=== PATIENT | male | born 1940 | race Caucasian/White ===

== ENCOUNTER 2020-03-29 12:52 | Outpatient (CLI) | payer MEDICARE, OTHER, SELFPAY ==
--- NOTE | 2020-03-29 11:30 | DI.RAD_ITS ---
EXAM: XR ANKLE LT COMPLETE CLINICAL HISTORY: Left lateral ankle pain, M25.572 TECHNIQUE: COMPARISON: No exams were available for comparison FINDINGS: Three views were obtained. There are prominent osteophytes calcaneal and plantar fascia attachments on the calcaneus with additional apparent Meghann tendinous calcification seen at each of these sites. There is arterial calcification of the ankle. The ankle mortise is well maintained. There are moder ate marginal osteophytes the tibial talar joint and talofibular joint. There are degenerative change s of the joints of the midfoot as well. There is an ossicle projected adjacent to the base 5th metatarsal, this may represent an unfused apop hysis, possibility fracture, acute or remote is not excluded, clinical correlation requested regardin g any recent injury at this site. IMPRESSION: Degenerative changes as described. Abnormal appearance of the base of the 5th metatarsal, variant ap ophysis versus fracture. Please correlate clinically.
== END 2020-03-29 13:12 ==
PROVIDERS: PCP Nurse Practitioner; Visit Provider Nurse Practitioner Family
DX: M25.572 Pain in left ankle and joints of left foot (principal); M19.072 Primary osteoarthritis, left ankle and foot; M25.772 Osteophyte, left ankle
CPT/HCPCS: 73610

== ENCOUNTER 2023-06-01 10:46 | Outpatient (CLI) | payer MEDICARE, SELFPAY ==
[2023-06-01 12:13] LABS: HGB 14.7 g/dL (13.5-17.5); MCH 32.5 pg (27.0-33.0); MCHC 34.2 % (32.0-36.0); MCV 95 fL (80-95); MPV 9.5 fL (8.0-11.0); Platelet Count 201 10^3/uL (130-400); RBC 4.53 10^6/uL (4.36-5.78); RDW 11.9 % (11.8-14.1); RDW-SD 41.9 fL; WBC 10.73 10^3/uL (4.4-10.8)
[2023-06-01 12:31] LABS: Anion Gap 8.8 mmol/L (3-11); BUN 23 mg/dL (7-18); CO2 28.2 mmol/L (21.0-32.0); Calcium 9.5 mg/dL (8.5-10.1); Chloride 104 mmol/L (98-107); Estimated GFR 76.08 (mL/min/1.73m2); Glucose 106 mg/dL (74-106); Potassium 3.7 mmol/L (3.5-5.1); Sodium 141 mmol/L (136-145); Uric Acid 8.6 mg/dL (3.5-7.2)
== END 2023-06-01 10:47 | disposition home or self-care (01) ==
LOC: LOS 10:46
PROVIDERS: PCP Nurse Practitioner Family; Referring Provider Nurse Practitioner Family; Visit Provider Nurse Practitioner Family
DX: C61 Malignant neoplasm of prostate; I10 Essential (primary) hypertension; I25.10 Atherosclerotic heart disease of native coronary artery without angina pectoris; L40.50 Arthropathic psoriasis, unspecified; M10.9 Gout, unspecified
CPT/HCPCS: 36415; 80048; 85027; 84550

== ENCOUNTER → 2024-02-19 15:21 | Outpatient (CLI) | payer MEDICARE, SELFPAY ==
--- NOTE | 2024-02-19 16:05 | DI.RAD_ITS ---
Exam(s) XR WRIST RT COMPLETE EXAM: XR WRIST RT COMPLETE CLINICAL HISTORY: right wrist pain M25.531 L40.50. TECHNIQUE: 2D digital imaging was performed of the right wrist. Three views were obtained. PA, lat eral and oblique views were obtained. COMPARISON: No exams were available for comparison FINDINGS: Extensive degenerative changes are seen in the right wrist characterized by joint space narrowing and osteophytes. No acute fracture or dislocation is seen. No suspicious soft tissue calcifications ar e seen. There is chondrocalcinosis present. IMPRESSION: Extensive arthrosis of the right wrist. No acute fracture or dislocation. DATA REPOSITORY: RADIATION DOSE DELIVERED:
--- NOTE | 2024-02-19 16:24 | DI.VRAD_ITS ---
PROCEDURE INFORMATION: Exam: XR Right Wrist Exam date and time: 02/19/2024 3:59 PM Age: 83 years old Clinical indication: Pain; Wrist; Right TECHNIQUE: Imaging protocol: Radiologic exam of the right wrist. Views: 3 or more views. COMPARISON: No relevant prior studies available. FINDINGS: Bones/joints: Moderate radiocarpal joint space narrowing. There subchondral cystic changes and eburnation. There is degenerative spurring along the radial aspect of the ulna at its articulation with the radius. Periarticular calcifications along the radial aspect of the scaphoid bone. Pisiform also has a irregularity at its articulation with the triquetrum and hamate. The carpometacarpal areas are preserved. Soft tissues: Moderate edema. IMPRESSION: Moderate radiocarpal joint arthrosis. Dictated and Authenticated by: Jamie Gutierrez MD. Ordering:JUSTIN Walker MD
== END ==
PROVIDERS: PCP Nurse Practitioner Family; Visit Provider Nurse Practitioner Family
DX: M25.531 Pain in right wrist (principal)
CPT/HCPCS: 73110

== ENCOUNTER 2024-04-06 12:21 | Outpatient (CLI) | payer MEDICARE, OTHER, SELFPAY ==
[2024-04-06 11:04] LABS: Abs Immature Grans 0.03 10^3/uL (0.0-0.06); Absolute Basophil Count 0.11 10^3/uL (0.0-0.2); Absolute Eosinophil Count 0.73 10^3/uL (0.0-0.7); Absolute Lymphocyte Count 3.02 10^3/uL (1.2-3.4); Absolute Monocyte Count 0.81 10^3/uL (0.1-0.8); Absolute Neutrophil Count 5.13 10^3/uL (1.2-6.7); Basophils % 1.1 %; Eosinophils % 7.4 %; HCT 43.4 % (40.0-50.0); HGB 14.6 g/dL (13.5-17.5); Immature Grans % 0.3 %; Lymphocytes % 30.7 %; MCH 32.2 pg (27.0-33.0); MCHC 33.6 % (32.0-36.0); MCV 96 fL (80-95); MPV 9.8 fL (8.0-11.0); Monocytes % 8.2 %; Neutrophils % 52.3 %; Platelet Count 204 10^3/uL (130-400); RBC 4.53 10^6/uL (4.36-5.78); RDW 11.8 % (11.8-14.1); RDW-SD 41.1 fL; WBC 9.83 10^3/uL (4.4-10.8)
[2024-04-06 12:01] LABS: ALT 24 U/L (16-63); AST 16 U/L (15-37); Albumin 3.9 g/dL (3.4-5.0); Alkaline Phosphatase 65 U/L (46-116); Anion Gap 8.9 mmol/L (3-11); BUN 19 mg/dL (7-18); Bilirubin, Total 0.74 mg/dL (0.2-1.0); CO2 30.1 mmol/L (21.0-32.0); CREATININE 1.2 mg/dL (0.70-1.30); Calcium 9.2 mg/dL (8.5-10.1); Chloride 104 mmol/L (98-107); Estimated GFR 60.75 (mL/min/1.73m2); Glucose 91 mg/dL (74-106); Potassium 3.7 mmol/L (3.5-5.1); Sodium 143 mmol/L (136-145); Total Protein 7.2 g/dL (6.4-8.2)
[2024-04-07 13:06] LABS: IgA 228 mg/dL (85-499); Interpretation (See Note); Tissue Transglutaminase IgA <4.0 CU (<20.0)
== END 2024-04-06 12:22 | disposition home or self-care (01) ==
PROVIDERS: PCP Nurse Practitioner Family; Visit Provider Nurse Practitioner Family
DX: R19.7 Diarrhea, unspecified (principal)
CPT/HCPCS: 36415; 80053; 82784; 83516; 85025

== ENCOUNTER 2024-04-08 14:37 | Outpatient (REF) | payer MEDICARE, OTHER, SELFPAY ==
--- OUTSIDE RECORDS SUMMARY | 2024-04-08 14:42 | XMS_ITS | Continuity of Care Document ---
Author Name [employer] Organization [facility] Care Team Providers Care Electroencephalograph Technician Name Role Phone [facility] Unavailable Unavailable Problems Combined list of problems from Department of Defense and Veterans Affairs facilities. It does not include entries that were removed or entered in error. 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 Also squamous cell. [facility] Benign hypertension Active Condition [facility] Dupuytren's contracture Active Condition May 16, 2014 Entered By: JAYCE CARTER Comment: R hand, [place], 1977, not successful. [facility] Essential hypertension (SNOMED CT 04330034) Active Condition [facility] Heart murmur Active Condition [facility] History of aortic valve replacement Active Condition [facility] History of male erectile disorder Active Condition [place] Misty BRUNER [facility] History of malignant neoplasm of prostate (SNOMED CT 407851369) Active Condition May 25, 2006 Entered By: VALENCIA GUTHRIE Comment: S/P SEED IMPLANTATION - FEBRUARY 2006 [facility] Hyperlipidemia Active Condition [place] Misty [facility] Malignant tumor of prostate Active Condition May 16, 2014 Entered By: JAYCE CARTER Comment: 2006, radioactive seeding. good PSA, F/U, non-VA [facility] Osteoarthritis of knee Active Condition May 16, 2014 Entered By: JAYCE CARTER Comment: R total knee 2012. L total knee 1983, good results. [facility] Psoriasis Active Condition May 16 Entered By: JAYCE CARTER Comment: Mild, arthritis, multiple meds, [facility] 2013 Entered By: JAYCE CARTER Comment: On no meds, 92018 Entered By: PB BRUNO Comment: Etanercept 06/01 [facility] Psoriatic arthritis (SNOMED CT [id number]) Active Condition [facility] Triple vessel disease of the heart Active Condition Jun 05, 2015 Entered By: JUSTYNA ROBBINS Comment: CABG 2014 [facility] Vaccine for Influenza Active Condition [facility] Depression Inactive Condition [facility] H[facility] COLON CANCER Inactive Condition 10/15/2010 May 25, 2006 Entered By: VALENCIA GUTHRIE Comment: FATHER AGE 50'S [facility] Insomnia Inactive Condition 10/15/2010 [facility] Personal History of Colonic Polyps Inactive Condition 10/21/2018 Oct 14 Entered By: DORENE MARINO Comment: neg surveillance 2009 [facility] Diagnosis: ICD-10-CM L40.50 Arthropathic psoriasis, unspecified Active Diagnosis [facility] Diagnosis: ICD-10-CM R19.7 Diarrhea, unspecified Active Diagnosis [facility] Diagnosis: ICD-10-CM Z46.1 Encounter for fitting and adjustment of hearing aid Active Diagnosis [facility] Diagnosis: ICD-10-CM L40.9 Psoriasis, unspecified Active Diagnosis [facility] Medications Combined list of outpatient medications from Department of Defense and [facility] Affairs facilities.Medications provided include 1) outpatient medications from the last 15 months, and 2) patient-reported medications. Medication Details Route Status Patient Instructions Prescription Expires Prescription Number Last Dispense Date Ordering Provider Order Date Order Qty Source ACETAMINOPH EN 325MG TAB ACETAMIN OPHEN 325MG TAB Non-VA TAKE TWO TABLETS BY MOUTH DAILY NEEDED Sep 27, 2021 Non-VA Document ed by: JULI SAENZ Document ed at: [facility] ORAL ACTIVE JULI CHERRY 2021 [facility] ALLOPURINOL 100MG TAB ALLOPURI NOL 100MG TAB Non-VA TAKE FOUR TABLETS BY MOUTH DAILY Sep 27, 2021 Non-VA Document ed by: JULI SAENZ Document ed at: [facility] ORAL ACTIVE JULI CHERRY 2021 [facility] AMLODIPINE BESYLATE 10MG TAB AMLODIPI NE BESYLATE 10MG TAB Non-VA TAKE ONE TABLET BY MOUTH EVERY DAY May 16, 2014 Non-VA Document ed by: Veronica CARTER Document ed at: [facility] ORAL ACTIVE DO LAM CARTER E 2013 [facility] AMLODIPINE/ BENAZEPRIL CAP,ORAL AMLODIPI NE/BENAZ EPRIL CAP,ORAL Non-VA TAKE 10-20- 1 TABLEY BY MOUTH EVERY MORNING May 25, 2006 Non-VA Document ed by: VALENCIA GUTHRIE SKEIN YARN DYER Document ed at: [facility] ORALLY ACTIVE Miller GUTHRIEP 2005 [facility] ASPIRIN 325MG TAB,EC ASPIRIN 325MG TAB,EC Non-VA TAKE ONE TABLET BY MOUTH QD (DAILY) Sep 27, 2021 Non-VA Document ed by: JULI SAENZ Document ed at: [facility] ORAL ACTIVE JULI CHERRY 2021 [facility] ASPIRIN 81MG TAB,CHEWABL E ASPIRIN 81MG TAB,CHEW ABLE Non-VA CHEW ONE TABLET BY MOUTH EVERY DAY May 16, 2014 Non-VA Document ed by: Veronica CARTER Document ed at: [facility] ORAL ACTIVE DO LAM CARTER 2013 [facility] CAPSAICIN 0.025% CREAM,TOP CAPSAICI N 0.025% CREAM,TO P Active APPLY SMALL AMOUNT TOPICALL Y AT BEDTIME NEEDED FOR LOCALIZE D PAIN NEUROPAT HY May 29, 2023 60 May 29, 2024 [id number] Dec 24, 2023 [facility] [place] [facility] 05/29/2024 [id number] Clarke MUNIZ 2022 60 [facility] CLOPIDOGREL BISULFATE 75MG TAB CLOPIDOG REL BISULFAT E 75MG TAB Non-VA TAKE ONE TABLET BY MOUTH DAILY TO PREVENT BLOOD CLOT Oct 09, 2022 Non-VA Document ed by: MICHELLE ACEVEDO Document ed at: [facility] ORAL ACTIVE MICHELLE CHRISTOPHER 2022 [facility] DOXAZOSIN MESYLATE 2MG TAB DOXAZOSI N MESYLATE 2MG TAB Non-VA TAKE ONE TABLET BY MOUTH AT BEDTIME Sep 27, 2021 Non-VA Document ed by: JULI SAENZ Document ed at: [facility] ORAL ACTIVE JULI CHERRY 2021 [facility] HYDROCHLORO THIAZIDE 25MG TAB HYDROCHL OROTHIAZ JOHANNE 25MG TAB Non-VA TAKE ONE TABLET BY MOUTH DAILY Oct 15, 2010 Non-VA Document ed by: Alfredo MARINO [facility] Document ed at: [facility] ORAL ACTIVE STEFANY MARINO SKEIN [employer] DYER 2010 [facility] HYDROCHLORO THIAZIDE 25MG TAB HYDROCHL OROTHIAZ JOHANNE 25MG TAB Non-VA TAKE ONE TABLET BY MOUTH EVERY MORNING Jun 05, 2015 Non-VA Document ed by: JUSTYNA ROBBINS Document ed at: [facility] ORAL ACTIVE Stephanie ROBBINS 2014 [facility] HYPROMELLOS E 0.4% SOLN,OPH HYPROMEL LOSE 0.4% SOLN,OPH Non-VA PLACE 1 DROP BOTH EYES NEEDED May 25, 2006 Non-VA Document ed by: VALENCIA GUTHRIE [facility] Document ed at: [facility] BOTH EYES ACTIVE Miller GUTHRIE 2005 [facility] IXEKIZUMAB 80MG/ML AUTO INJECTOR IXEKIZUM AB 80MG/ML AUTO INJECTOR Active INJECT 80MG/ML SUBCUTAN EOUSLY EVERY FOUR WEEKS FOR PSORIATI C ARTHRITI S FOR PSORIATI C ARTHRITI S Feb 26, 2024 3 Feb 26, 2025 [id number] Feb 28, 2024 YVONNE MUNIZ [facility] SUBCUT ANEOUS ACTIVE 02/26/2025 [id number] Clarke MUNIZ 2023 3 [facility] IXEKIZUMAB 80MG/ML AUTO INJECTOR IXEKIZUM AB 80MG/ML AUTO INJECTOR Disconti nued INJECT 80MG/ML SUBCUTAN EOUSLY EVERY FOUR WEEKS THEN 80MG SUBCUTAN EOUSLY EVERY 4 WEEKS Jul 07, 2023 3 Jul 07, 2024 [id number] Dec 24, 2023 YVONNE MUNIZ [place] [facility] SUBCUT ANEOUS DISCONT INUED BY PROVIDE R 07/07/2024 [id number] Clarke MUNIZ [facility] [address] [facility] IXEKIZUMAB 80MG/ML AUTO INJECTOR IXEKIZUM AB 80MG/ML AUTO INJECTOR Disconti nued INJECT 80MG/ML SUBCUTAN EOUSLY EVERY FOUR WEEKS THEN 80MG SUBCUTAN EOUSLY EVERY 4 WEEKS Jun 06, 2022 3 Jun 07, 2023 [id number] Apr 28, 2023 YVONNE MUNIZ T [facility] SUBCUT ANEOUS DISCONT INUED 06/07/2023 [id number] Clarke MUNIZ SAGE [address] [facility] IXEKIZUMAB 80MG/ML AUTO INJECTOR IXEKIZUM AB 80MG/ML AUTO INJECTOR Non-VA INJECT ONE PEN UNDER THE SKIN MONDAYS FOR PSORIATI C ARTHRITI S Oct 09, 2022 Non-VA Document ed by: MICHELLE ACEVEDO Document ed at: [facility] SUBCUT ANEOUS ACTIVE MICHELLE CHRISTOPHER 2022 [facility] METOPROLOL TARTRATE 25MG TAB METOPROL OL TARTRATE 25MG TAB Non-VA TAKE ONE-HALF TABLET BY MOUTH TWICE A DAY Oct 21, 2018 Non-VA Document ed by: RAY CASTELLON [employer] Document ed at: [facility] ORAL ACTIVE CHERYL CASTELLON 2018 [facility] METOPROLOL TARTRATE 50MG TAB METOPROL OL TARTRATE 50MG TAB Non-VA TAKE ONE TABLET BY MOUTH TWICE A DAY Jun 05, 2015 Non-VA Document ed by: JUSTYNA ROBBINS Document ed at: [facility] ORAL ACTIVE Stephanie ROBBINS 2014 [facility] NAPROXEN TAB NAPROXEN TAB Non-VA TAKE 440MG BY MOUTH TWICE A DAY May 16, 2014 Non-VA Document ed by: Veronica CARTER Document ed at: [facility] ORAL ACTIVE DO LAM CARTER 2013 [facility] POTASSIUM CHLORIDE 10MEQ TAB,SA POTASSIU M CHLORIDE 10MEQ TAB,SA Non-VA TAKE ONE TABLET BY MOUTH TWICE A DAY May 16, 2014 Non-VA Document ed by: Veronica CARTER Document ed at: [facility] ORAL ACTIVE DO EMMA NALD E 2013 [facility] ROSUVASTATI N CA 5MG TAB ROSUVAST ATIN CA 5MG TAB Non-VA TAKE ONE TABLET BY MOUTH AT BEDTIME Dec 23, 2012 Non-VA Document ed by: Alfredo MARINO [employer] Document ed at: [facility] ORAL ACTIVE STEFANY MARINO [employer]ER 2012 [facility] ROSUVASTATI N CA 5MG TAB ROSUVAST ATIN CA 5MG TAB Non-VA TAKE ONE TABLET BY MOUTH EVERY DAY May 16, 2014 Non-VA Document ed by: Veronica CARTER Document ed at: [facility] ORAL ACTIVE DO EMMA NALD E 2013 [facility] Immunizations Combined list of available immunizations from the Department of Defense and Veterans Affairs facilities. Immunization Series Date Given Administered By Site Reaction Lot Number CVX Code Drug Director Power Status Comments Source TD (ADULT), 5 LF TETANUS TOXOID, PRESERVATIVE FREE, ADSORBED 2022 JOSE CHIANG MARK LEFT DELTO ID [id number] 113 complet ed [facility] INFLUENZA, UNSPECIFIED FORMULATION 2021 88 complet ed [facility] COVID-19 (MODERNA), MRNA, LNP-S, PF, 100 MCG/0.5ML DOSE OR 50 MCG/0.25ML DOSE 4 2021 207 complet ed MOD; [id number]; 2 [facility] COVID-19 (MODERNA), MRNA, LNP-S, PF, 100 MCG/0.5 ML DOSE 3 2020 207 complet ed MOD; [id number]; 2 [facility] INFLUENZA, UNSPECIFIED FORMULATION 2020 88 complet ed [facility] COVID-19 (MODERNA), MRNA, LNP-S, PF, 100 MCG/0.5 ML DOSE 2 2020 207 complet ed MOD; [id number]; 1 [facility] COVID-19 (MODERNA), MRNA, LNP-S, PF, 100 MCG/0.5 ML DOSE 1 2020 207 complet ed MOD; [id number]; 1 [facility] INFLUENZA, UNSPECIFIED FORMULATION 2019 88 complet ed [facility] INFLUENZA, TRIVALENT, ADJUVANTED [address] [facility] INFLUENZA, INJECTABLE, QUADRIVALENT, PRESERVATIVE FREE 2018 150 complet ed Site: Left Deltoid [facility] ZOSTER RECOMBINANT 2 2018 187 complet ed [facility] ZOSTER RECOMBINANT 1 2018 187 complet ed [employer] in [place]Por t [facility], no records available , info provided by patient. [facility] INFLUENZA, SEASONAL, INJECTABLE 2017 141 complet ed Site: Left Deltoid [facility] INFLUENZA, TRIVALENT, ADJUVANTED 2017 168 complet ed [facility] INFLUENZA, TRIVALENT, ADJUVANTED 2016 168 complet ed [facility] INFLUENZA, UNSPECIFIED FORMULATION 2015 88 complet ed [facility] INFLUENZA, UNSPECIFIED FORMULATION 2014 88 complet ed [facility] INFLUENZA, UNSPECIFIED FORMULATION 2013 88 complet ed Site: Right Deltoid [facility] INFLUENZA, UNSPECIFIED FORMULATION 2012 88 complet ed Other commercia l location [facility] ZOSTER LIVE 2012 121 [facility] ed [facility], [facility]NSPECIF[facility] FORMULATION 2011 88 complet ed [facility] ZOSTER LIVE 2011 121 complet ed [facility] PNEUMOCOCCAL, UNSPECIFIED FORMULATION 2011 109 complet ed [id number] exp: 07/01/13 [facility] TDAP 2011 115 complet ed [id number] exp: 08/07/13 [facility] INFLUENZA, UNSPECIFIED FORMULATION 2010 88 complet ed [facility] INFLUENZA, UNSPECIFIED FORMULATION 2010 88 complet ed [facility] INFLUENZA, UNSPECIFIED FORMULATION 2008 88 complet ed [facility] INFLUENZA VIRUS VACCINE SYR (HISTORICAL) 2007 88 complet ed [facility] INFLUENZA VIRUS VACCINE SYR (HISTORICAL) 2006 88 complet ed [facility] INFLUENZA, UNSPECIFIED FORMULATION 2005 88 complet ed [facility] INFLUENZA, UNSPECIFIED FORMULATION 2004 LIZANDRO PINON 88 complet ed 06/2005 [facility] PNEUMOCOCCAL, UNSPECIFIED FORMULATION 2004 LIZANDRO PINON 109 complet ed 06/2005 [facility] INFLUENZA (HISTORICAL) 2001 88 complet ed [facility] INFLUENZA, WHOLE 2001 JESUSITA REYNA ETTA A 16 complet ed [facility] INFLUENZA, WHOLE 2000 16 complet ed [facility] Results Combined list of recent chemistry, hematology and other laboratory results from Department of Defense and Veterans Affairs, ranging from 15 months to all on record, depending upon the facility. Order Name Results Value Reference Range Date Interpretation Specimen Comments Source OCCULT BLOOD FITX1 SCREEN HEMOGLOBIN. GASTROINTES TINAL.LOWER [PRESENCE] IN STOOL BY IMMUNOASSAY Negative 08/04 Specimen Type: FECES No comment entered. Ordering Provider: GIULIA CHANG MD Report Released Date/Time: Jul 22, 2023 03:55 PM Reporting Lab: [place] [address] [facility] [address] Performing Lab: [place] [address] [facility] [address] [facility] TRYPTASE TRYPTASE [MASS/VOLUM E] IN SERUM OR PLASMA 11.3 ug/L 07/29 H Specimen Type: SERUM Comment: REFERENCE RANGE: <11.0 mcg/L The Tryptase test, fluorescent enzyme immunoassay (FEIA), measures both the Alpha and Beta forms of Tryptase. Measuring both forms of Tryptase increases sensitivity for the diagnosis of mastocytosi s, and mast cell degranulati on as a cause of anaphylaxis . Test Performed by [employer] [place], [employer] [facility], [address] [place] [address] Gui Blakely M.D., Ph.D., Director of Laboratorie s , CLIA [id number] Ordering Provider: GIULIA CHANG MD Report Released Date/Time: Jul 22, 2023 03:55 PM Reporting Lab: [place] [address] [facility] [address] Performing Lab: [facility] [address] [address] [facility] CELIAC DISEASE COMPREHEN SIVE PANEL IGA [MASS/VOLUM E] IN SERUM OR PLASMA 262 mg/dL 70 - 320 07/29 Specimen Type: SERUM Comment: INTERPRETAT ION:No serological evidence of celiac disease. INTERPRETAT ION:tTG IgA may normalize in individuals with celiac INTERPRETAT ION:disease who maintain a gluten-free diet. Consider HLA INTERPRETAT ION:DQ2 and DQ8 testing to rule out celiac disease. INTERPRETAT ION:Celiac INTERPRETAT ION:disease is extremely rare in the absence of DQ2 or INTERPRETAT ION:DQ8. tTG IGA:REFEREN CE RANGE: <15. 0 U/mL tTG IGA: Value Interpretat ion tTG IGA: <15.0 Antibody not detected tTG IGA:> or = 15.0 Antibody detected SERUM IGA:Test Performed by [facility], SERUM IGA:[employer] [facility], SERUM IGA:[address] [place], [place] SERUM IGA:Gui Blakely M.D., Ph.D., Director of Laboratorie s SERUM IGA: , CLIA [id number] Ordering Provider: GIULIA CHANG MD Report Released Date/Time: Jul 22, 2023 03:55 PM Reporting Lab: [address] [facility] [address] Performing Lab: [facility] [address] [address] [facility] CELIAC DISEASE COMPREHEN SIVE PANEL TISSUE TRANSGLUTAM INASE IGA AB [UNITS/VOLU ME] IN SERUM <1.0 07/29 Specimen Type: SERUM Comment: INTERPRETAT ION:No serological evidence of celiac disease. INTERPRETAT ION:tTG IgA may normalize in individuals with celiac INTERPRETAT ION:disease who maintain a gluten-free diet. Consider HLA INTERPRETAT ION:DQ2 and DQ8 testing to rule out celiac disease. INTERPRETAT ION:Celiac INTERPRETAT ION:disease is extremely rare in the absence of DQ2 or INTERPRETAT ION:DQ8. tTG IGA:REFEREN CE RANGE: <15. 0 U/mL tTG IGA: Value Interpretat ion tTG IGA: <15.0 Antibody not detected tTG IGA:> or = 15.0 Antibody detected SERUM IGA:Test Performed by [employer], SERUM IGA:[employer], SERUM IGA:[address] [place], [place] SERUM IGA:Gui Blakely M.D., Ph.D., Director of LaboratorLinkua s SERUM IGA: , CLIA [id number] Ordering Provider: GIULIA CHANG MD Report Released Date/Time: Jul 22, 2023 03:55 PM Reporting Lab: [facility] [address] [facility] [address] Performing Lab: [address] [facility]INCINNAT[facility]ICAL CENTERJose Miguel [facility] CELIAC DISEASE COMPREHEN SIVE PANEL INTERPRETAT ION AND REVIEW OF LABORATORY RESULTS SEE NOTE 07/29 Specimen Type: SERUM Comment: INTERPRETAT ION:No serological evidence of celiac disease. INTERPRETAT ION:tTG IgA may normalize in individuals with celiac INTERPRETAT ION:disease who maintain a gluten-free diet. Consider HLA INTERPRETAT ION:DQ2 and DQ8 testing to rule out celiac disease. INTERPRETAT ION:Celiac INTERPRETAT ION:disease is extremely rare in the absence of DQ2 or INTERPRETAT ION:DQ8. tTG IGA:REFEREN CE RANGE: <15. 0 U/mL tTG IGA: Value Interpretat ion tTG IGA: <15.0 Antibody not detected tTG IGA:> or = 15.0 Antibody detected SERUM IGA:Test Performed by [employer], SERUM IGA:[employer], SERUM IGA:[address] [place], [place] SERUM IGA:Gui Blakely M.D., Ph.D., Director of [employer] SERUM IGA: , CLIA [id number] Ordering Provider: GIULIA CHANG MD Report Released Date/Time: Jul 22, 2023 03:55 PM Reporting Lab: [facility] [address] [facility] [address] Performing Lab: [facility] [address] [address] [facility] CEA CARCINOEMBR YONIC AG [MASS/VOLUM E] IN SERUM OR PLASMA 1.98 ng/mL 0.0 - 5.0 07/29 Specimen Type: SERUM No comment entered. Ordering Provider: GIULIA CHANG MD Report Released Date/Time: Jul 22, 2023 03:55 PM Reporting Lab: [facility] [address] [facility] [address] Performing Lab: [facility] [address] [facility] [id number] [place] [address] Vitamin B12 & Folate COBALAMIN (VITAMIN B12) [MASS/VOLUM E] IN SERUM OR PLASMA >2000pg/ mL 210 - 900 07/29 H Specimen Type: SERUM No comment entered. Ordering Provider: GIULIA CHANG MD Report Released Date/Time: Jul 22, 2023 03:55 PM Reporting Lab: [facility] [address] [facility] [address] Performing Lab: [facility] [address] [facility] [phone] [place] [address] Vitamin B12 & Folate FOLATE [MASS/VOLUM E] IN SERUM OR PLASMA >20.0ng/ mL 7 - 20 07/29 Specimen Type: SERUM No comment entered. Ordering Provider: GIULIA CHANG MD Report Released Date/Time: Jul 22, 2023 03:55 PM Reporting Lab: [facility] [address] [facility] [address] Performing Lab: [facility] [address] [facility] [id number] [place] [address] CBC LEUKOCYTES [#/VOLUME] IN BLOOD BY AUTOMATED COUNT 9.7 10*3/uL 4.0 - 11.0 07/29 Specimen Type: BLOOD No comment entered. Ordering Provider: GIULIA CHANG MD Report Released Date/Time: Jul 22, 2023 03:55 PM Reporting Lab: [facility] [address] [facility] [address] Performing Lab: [facility] [address] CBC ERYTHROCYTE S [#/VOLUME] IN BLOOD BY AUTOMATED COUNT 4.52 10*6/uL 4.4 - 5.9 07/29 Specimen Type: BLOOD No comment entered. Ordering Provider: GIULIA CHANG MD Report Released Date/Time: Jul 22, 2023 03:55 PM Reporting Lab: [facility] [address] [place] [address] Performing Lab: [facility] [address] CBC HEMOGLOBIN [MASS/VOLUM E] IN BLOOD 14.9 g/dL 13.4 - 17.5 07/29 Specimen Type: BLOOD No comment entered. Ordering Provider: GIULIA CHANG MD Report Released Date/Time: Jul 22, 2023 03:55 PM Reporting Lab: [facility] [address] [place] [address] Performing Lab: [facility] [address] CBC HEMATOCRIT [VOLUME FRACTION] OF BLOOD BY AUTOMATED COUNT 42.8 40 - 52 07/29 Specimen Type: BLOOD No comment entered. Ordering Provider: GIULIA CHANG MD Report Released Date/Time: Jul 22, 2023 03:55 PM Reporting Lab: [facility] [address] [place] [address] Performing Lab: [facility] [address] CBC MCV [ENTITIC VOLUME] BY AUTOMATED COUNT 94.7 fL 82 - 98 07/29 Specimen Type: BLOOD No comment entered. Ordering Provider: GIULIA CHANG MD Report Released Date/Time: Jul 22, 2023 03:55 PM Reporting Lab: [facility] [address] [place] [address] Performing Lab: [facility] [address] CBC MCH [ENTITIC MASS] BY AUTOMATED COUNT 32.9 pg 27.0 - 33.0 07/29 Specimen Type: BLOOD No comment entered. Ordering Provider: GIULIA CHANG MD Report Released Date/Time: Jul 22, 2023 03:55 PM Reporting Lab: [facility] [address] [facility] [address] Performing Lab: [facility] [address] [facility] [address] [place] [address] CBC MCH [ENTITIC MASS] BY AUTOMATED COUNT 34.7 g/dL 32.0 - 36.0 07/29 Specimen Type: BLOOD No comment entered. Ordering Provider: GIULIA CHANG MD Report Released Date/Time: Jul 22, 2023 03:55 PM Reporting Lab: [facility] [address] [facility] [address] Performing Lab: [facility] [address] [facility] [id number] [place] [address] CBC PLATELETS [#/VOLUME] IN BLOOD BY AUTOMATED COUNT 206 10*3/uL 140 - 400 07/29 Specimen Type: BLOOD No comment entered. Ordering Provider: GIULIA CHANG MD Report Released Date/Time: Jul 22, 2023 03:55 PM Reporting Lab: [facility] [address] [facility] [place] [address] Performing Lab: [facility] [address] [facility] [address] [place] [address] CBC ERYTHROCYTE DISTRIBUTIO N WIDTH [RATIO] BY AUTOMATED COUNT 12.7 11.5 - 14.5 07/29 Specimen Type: BLOOD No comment entered. Ordering Provider: GIULIA CHANG MD Report Released Date/Time: Jul 22, 2023 03:55 PM Reporting Lab: [facility] [address] [facility] [address] Performing Lab: [facility] [address] [facility] [address] [facility] CBC PLATELET MEAN VOLUME [ENTITIC VOLUME] IN BLOOD BY AUTOMATED COUNT 8.5 fL 6.6 - 10.6 07/29 Specimen Type: BLOOD No comment entered. Ordering Provider: GIULIA CHANG MD Report Released Date/Time: Jul 22, 2023 03:55 PM Reporting Lab: [facility] [address] [facility] [address] Performing Lab: [facility] [address] [facility] [place] [address] [facility] SED RATE ERYTHROCYTE SEDIMENTATI ON RATE BY WESTERGREN METHOD 6 mm/h 0 - 20 07/29 Specimen Type: BLOOD No comment entered. Ordering Provider: GIULIA CHANG MD Report Released Date/Time: Jul 22, 2023 03:55 PM Reporting Lab: [facility] [address] [facility] [address] Performing Lab: [facility] [address] [facility] [id number] [place] [address] DIFF COUNT (BLOOD) NEUTROPHILS /100 LEUKOCYTES IN BLOOD BY AUTOMATED COUNT 61.2 40 - 77 07/29 Specimen Type: BLOOD No comment entered. Ordering Provider: GIULIA CHANG MD Report Released Date/Time: Jul 22, 2023 03:55 PM Reporting Lab: [facility] [address] [facility] [address] Performing Lab: [facility] [address] [place] [address] [place] [address] DIFF COUNT (BLOOD) LYMPHOCYTES /100 LEUKOCYTES IN BLOOD BY AUTOMATED COUNT 24.6 14 - 45 07/29 Specimen Type: BLOOD No comment entered. Ordering Provider: GIULIA CHANG MD Report Released Date/Time: Jul 22, 2023 03:55 PM Reporting Lab: [facility] [address] [facility] [address] Performing Lab: [facility] [address] [facility] [id number] [place] [address] DIFF COUNT (BLOOD) BASOPHILS/1 00 LEUKOCYTES IN BLOOD BY AUTOMATED COUNT 0.8 0 - 2 07/29 Specimen Type: BLOOD No comment entered. Ordering Provider: GIULIA CHANG MD Report Released Date/Time: Jul 22, 2023 03:55 PM Reporting Lab: [facility] [address] [facility] [address] Performing Lab: [facility] [address] [facility] [id number] [place] [address] DIFF COUNT (BLOOD) MONOCYTES/1 00 LEUKOCYTES IN BLOOD BY AUTOMATED COUNT 8.0 2 - 14 11/15 /2023 Specimen Type: BLOOD No comment entered. Ordering Provider: GIULIA CHANG MD Report Released Date/Time: Jul 22, 2023 03:55 PM Reporting Lab: [facility] [address] [place] [address] Performing Lab: [facility] [address] [place] [address] [place] [address] DIFF COUNT (BLOOD) EOSINOPHILS /100 LEUKOCYTES IN BLOOD BY AUTOMATED COUNT 5.4 0 - 7 07/29 Specimen Type: BLOOD No comment entered. Ordering Provider: GIULIA CHANG MD Report Released Date/Time: Jul 22, 2023 03:55 PM Reporting Lab: [facility] [address] [place] [address] Performing Lab: [facility] [address] DIFF COUNT (BLOOD) LYMPHOCYTES [#/VOLUME] IN BLOOD BY AUTOMATED COUNT 2.4 10*3/uL 1.0 - 4.8 07/29 Specimen Type: BLOOD No comment entered. Ordering Provider: GIULIA CHANG MD Report Released Date/Time: Jul 22, 2023 03:55 PM Reporting Lab: [facility] [address] [place] [address] Performing Lab: [facility] [address] DIFF COUNT (BLOOD) MONOCYTES [#/VOLUME] IN BLOOD BY AUTOMATED COUNT 0.8 10*3/uL 0.2 - 1.0 07/29 Specimen Type: BLOOD No comment entered. Ordering Provider: GIULIA CHANG MD Report Released Date/Time: Jul 22, 2023 03:55 PM Reporting Lab: [facility] [address] Performing Lab: [facility] [address] DIFF COUNT (BLOOD) EOSINOPHILS [#/VOLUME] IN BLOOD BY AUTOMATED COUNT 0.5 10*3/uL 0.0 - 0.5 07/29 Specimen Type: BLOOD No comment entered. Ordering Provider: GIULIA CHANG MD Report Released Date/Time: Jul 22, 2023 03:55 PM Reporting Lab: [facility] [address] Performing Lab: [facility] [address] DIFF COUNT (BLOOD) BASOPHILS [#/VOLUME] IN BLOOD BY AUTOMATED COUNT 0.1 10*3/uL 0 - 0.2 07/29 Specimen Type: BLOOD No comment entered. Ordering Provider: GIULIA CHANG MD Report Released Date/Time: Jul 22, 2023 03:55 PM Reporting Lab: [facility] [address] [place] [address] Performing Lab: [facility] [address] DIFF COUNT (BLOOD) NEUTROPHILS [#/VOLUME] IN BLOOD BY AUTOMATED COUNT 5.9 10*3/uL 1.8 - 7.8 07/29 Specimen Type: BLOOD No comment entered. Ordering Provider: GIULIA CHANG MD Report Released Date/Time: Jul 22, 2023 03:55 PM Reporting Lab: [facility] [address] [place] [address] Performing Lab: [place] [address] DIFF COUNT (BLOOD) DIFFERENTIA L CELL COUNT METHOD - BLOOD AUTO 07/29 Specimen Type: BLOOD No comment entered. Ordering Provider: GIULIA CHANG MD Report Released Date/Time: Jul 22, 2023 03:55 PM Reporting Lab: [facility] [address] [place] [address] Performing Lab: [facility] [address] C REACTIVE PROTEIN (NON-CARD IAC) C REACTIVE PROTEIN [MASS/VOLUM E] IN SERUM OR PLASMA 0.09 mg/dL 0.00 - 0.50 07/29 Specimen Type: SERUM No comment entered. Ordering Provider: GIULIA CHANG MD Report Released Date/Time: Jul 22, 2023 03:55 PM Reporting Lab: [facility] [address] [place] [address] Performing Lab: [facility] [address] [facility] [place] [address] [facility] LIPID PROFILE CHOLESTEROL IN LDL [MASS/VOLUM E] IN SERUM OR PLASMA BY CALCULATION 62 mg/dL 0 - 100 07/29 Specimen Type: PLASMA No comment entered. Ordering Provider: GIULIA CHANG MD Report Released Date/Time: Jul 22, 2023 03:55 PM Reporting Lab: [facility] [address] [facility] [place] [address] Performing Lab: [facility] [address] [facility] [place] [id number] [place] [address] LIPID PROFILE CHOLESTEROL [MASS/VOLUM E] IN SERUM OR PLASMA 117 mg/dL 0 - 200 07/29 Specimen Type: PLASMA No comment entered. Ordering Provider: GIULIA CHANG MD Report Released Date/Time: Jul 22, 2023 03:55 PM Reporting Lab: [facility] [address] [facility] [place] [address] Performing Lab: [facility] [address] [facility] [place] [address] [facility] LIPID PROFILE CHOLESTEROL IN HDL [MASS/VOLUM E] IN SERUM OR PLASMA 42 mg/dL 40 - 180 07/29 Specimen Type: PLASMA No comment entered. Ordering Provider: GIULIA CHANG MD Report Released Date/Time: Jul 22, 2023 03:55 PM Reporting Lab: [facility] [address] [facility] [place] [address] Performing Lab: [facility] [address] [facility] [place] [address] [facility] LIPID PROFILE TRIGLYCERID E [MASS/VOLUM E] IN SERUM OR PLASMA 67 mg/dL 0 - 150 07/29 Specimen Type: PLASMA No comment entered. Ordering Provider: GIULIA CHANG MD Report Released Date/Time: Jul 22, 2023 03:55 PM Reporting Lab: [facility] [address] [facility] [place] [address] Performing Lab: [facility] [address] [facility] [place] [address] [facility] LIPID PROFILE CHOLESTEROL .TOTAL/CHOL ESTEROL IN HDL [MASS RATIO] IN SERUM OR PLASMA 2.8 07/29 Specimen Type: PLASMA No comment entered. Ordering Provider: GIULIA CHANG MD Report Released Date/Time: Jul 22, 2023 03:55 PM Reporting Lab: [facility] [address] [facility] [address] Performing Lab: [facility] [address] [facility] [address] [facility] LIPID PROFILE CHOLESTEROL IN LDL [MASS/VOLUM E] IN SERUM OR PLASMA BY DIRECT ASSAY cancmg/d L 0 - 100 07/29 Specimen Type: PLASMA No comment entered. Ordering Provider: GIULIA CHANG MD Report Released Date/Time: Jul 22, 2023 03:55 PM Reporting Lab: [facility] [address] [facility] [address] Performing Lab: [facility] [address] [facility] [address] [facility] Vital Signs Combined list of inpatient and outpatient Vital Signs from Department of Defense and [facility], ranging from 12 months to all on record, depending upon the facility. Vital Sign Value Date Comments Source Encounters Combined list of: 1) Encounters from Department of Veterans Affairs facilities going back up to thelast 18 months. 2) Encounters from the Department of Defense facilities going back up to 280 months. Location Location Details Encounter Type Encounter Number Reason For Visit Attending Provider ADM Date DC Date Status Disposition Source [facility] [place] [id number] Diagnos is: ICD-10- CM L40.9 Psorias is, unspeci fied
MICHELLE CHRISTOPHER 10/09 [facility] REMOVE IMPACTED EAR WAX UNI [id number] Diagnos is: ICD-10- CM Z46.1 Encount er for fitting and adjustm ent of hearing aid<br/ > TASNEEM LALA 12/08 [facility] Outpatient Encounter [id number] 02/02 [facility] Outpatient Encounter [id number] 04/28 [facility] OFFICE O/P EST HI 40-54 MIN [id number] Diagnos is: ICD-10- CM L40.50 Arthrop athic psorias is, unspeci fied
MIRALDI, HLEY 05/29 [facility] REMOVE IMPACTED EAR [place] [id number] Diagnos is: ICD-10- CM Z46.1 Encount er for fitting and adjustm ent of hearing aid<br/ > SHIELDS ,JESSICA 06/30 [facility] Outpatient Encounter [id number] 07/02 [facility] Outpatient Encounter [id number] Diagnos is: ICD-10- CM L40.50 Arthrop athic psorias is, unspeci fied
MIRALDI, HLEY 07/21 [facility] CASE MANAGEMENT [id number] [place]AR[place] 07/28 [facility] CASE MANAGEMENT [id number] MARCO ANTONIO POPE 07/30 [facility] Outpatient Encounter [id number] Diagnos is: ICD-10- CM R19.7 Diarrhe a, unspeci fied
TRI MCKEON 07/31 [facility] Outpatient Encounter [id number] Diagnos is: ICD-10- CM R19.7 Diarrhe a, unspeci fied
MIRALDI, HLEY 08/07 [facility] Outpatient Encounter [id number] 09/09 [facility] Outpatient Encounter [id number] 09/17 [facility] Outpatient Encounter [id number] 09/18 [facility] Outpatient Encounter [id number] Clarke WORRELL 09/30 [facility] Outpatient Encounter [id number] 10/21 [facility] Outpatient Encounter [id number] 11/29 [facility] Outpatient Encounter [id number] 12/31 [facility] OFFICE O/P EST HI 40 MIN [id number] Diagnos is: ICD-10- CM L40.50 Arthrop athic psorias is, unspeci fied
MIRALDI, HLEY 02/25 [facility] Social History Combined list of available smoking, tobacco, and other social history from Department of Defense and Veterans Affairs facilities. 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 History of tobacco use NON-TOBACCO USER 01/24/2014 [facility] History of tobacco use NON-TOBACCO USER 12/23/2012 [facility] History of tobacco use NON-TOBACCO USER 12/29/2011 [facility] History of tobacco use NON-TOBACCO USER 10/14/2011 [facility] History of tobacco use NON-TOBACCO USER 10/15/2010 [facility] History of tobacco use NON-TOBACCO USER 05/25/2006 [facility] Plan of Care List of future care activities from Department [facility] facilities. Additional future care activities may be listed in the Assessment and Plan section. Date/Time Care Activity Care Activity Detail Facili ty 08/23/2024 AMBULATORY - MEDICINE [facility] Advance Directives List of completed, amended, or rescinded Advance Directives on record at Department of [facility] facilities. An actual copy of the Directive is not included. Date Advance Directive Provider Source 06/30/2014 ADVANCE DIRECTIVE OBED HERNANDES [facility]
--- OUTSIDE RECORDS SUMMARY | 2024-04-08 14:42 | XMS_ITS | Encounter Summary ---
Author Name [facility] [place] [facility] [place] Address [address] [place] [address] Care Team Providers Care Medical Billing And Coding Specialist Name Role Phone CORETTA REY Primary Care Provider Unavailabl e Insurance Providers: All historical and current Section Date Range: From patient's date of to the date document was created. This section includes the names of all active insurance providers for the patient. Insurance Provider Type of Coverage Plan Name Start of Policy Coverage End of Policy Coverage Group Number Member ID Insurance Provider's Telephone Number Policy Guzman's Name Patient's Relationship to Policy Guzman [employer]IGNA INCOME PROTECTIO N (INDEMNIT Y) [facility] Apr 14, [id number] [facility] MAYUR,ELOISE HARD PATIENT CIGNA MEDICAL EXPENSE (OPT/PROF ) [facility] Mar 14, [id number] [facility] BLOHM,ELOISE HARD PATIENT CIGNA BEHAVIORAL HEALTH MENTAL HEALTH [facility] Mar 14, [id number] [facility] [phone] BLOHM,ELOISE HARD PATIENT MEDICARE (WNR) MEDICARE (M) PART B Sep 14, 2007 PART B [id number] [phone] BLOHM,ELOISE HARD PATIENT MEDICARE (WNR) MEDICARE (M) PART A Sep 14, 2007 PART A [id number] BLOHM,ELOISE HARD PATIENT MEDICARE (WNR) MEDICARE (M) PART B Sep 14, 2007 PART B [id number] BLOHM,ELOISE HARD PATIENT MEDICARE (WNR) MEDICARE (M) PART A Sep 14, 2007 PART A [id number] BLOHM,ELOISE HARD PATIENT MEDICARE (WNR) MEDICARE (M) PART A Sep 14, 2007 PART A [id number] [phone] BLOHM,ELOISE HARD PATIENT MEDICARE (WNR) MEDICARE (M) PART B Sep 14, 2007 PART B [id number] BLOHM,ELOISE HARD PATIENT MEDICARE PART D (WNR) MEDICARE (M) PART D Sep 14, 2012 PART D [id number] BLOHM,ELOISE HARD PATIENT OPTIMUM CHOICE POINT OF SERVICE [facility] Aug 14, 1998 [id number] [phone] BLOHM,ELOISE HARD PATIENT Selected Encounter This section includes the information on record at [place] for the Encounter. Date/Time Encounter Type Encounter Description Reason Provider Source Jul 21, 2023 08:32 AM Outpatient Encounter TELEPHONE/MEDICIN E ICD-10-CM L40.50 Arthropathic psoriasis, unspecified MIRALDI,ASHLE Y IHE Encounter Template Text not used by [place] Assessments - Encounter Diagnoses This section includes the primary and secondary diagnoses documented for the Encounter. Date/Time Primary/Secondary Diagnosis Diagnosis Name Provider Source Jul 21, 2023 08:32 AM PRIMARY Arthropathic psoriasis, unspecified CRISTYYVONNE CARBAJAL [facility]EN[facility] Jul 21, 2023 08:32 AM SECONDARY Abnormal weight loss PONCEJOSE CARLOSYVONNE PAIZ [facility] Jul 21, 2023 08:32 AM SECONDARY Diarrhea, unspecified CRISTYYVONNE PAIZ [facility] Plan of Treatment: Future Appointments (+ 6 months) and Future Tests (+/- 45 days) The Plan of Treatment section includes future care activities for the patient from all [facility] treatment[facility]ilities. This section includes future appointments and future orders which are active, pending or scheduled. Future Appointments This section includes appointments that were scheduled to occur 6 months from the date of the Encounter, up to a maximum of 20 appointments. The data comes from all [facility]. Appointment Date/Time Appointment Type Appointme nt Facility Name Jul 29, 2023 11:00 AM AMBULATORY - NONE [facility] Aug 07, 2023 09:15 AM AMBULATORY - MEDICINE BRUCE PAIZ [facility] Active, Pending, and Scheduled Orders This section includes a listing of several types of active, pending, and scheduled orders, including clinic medications orders, diagnostic test orders, procedure orders and consult orders; where the start date of the order is 45 days before the date of the Encounter or 45 days after the date of theEncounter. The data comes from all [facility]. Test Date/Time Test Type Test Details Facility Name Jul 22, 2023 12:00 AM Laboratory - Chemistry Order FECAL LACTOFERRIN STOOL [facility] Jul 22, 2023 12:00 AM Laboratory - Microbiology Order FECAL FAT, QUALITATIVE STOOL [facility] Jul 22, 2023 12:00 AM Laboratory - Microbiology Order YERSINIA CULTURE STOOL [facility] Jul 22, 2023 03:55 PM Laboratory - Chemistry Order GASTROINTESTINAL (GI) PANEL BIOFIRE STOOL [facility] Jul 22, 2023 03:55 PM Laboratory - Chemistry Order LAB C DIFF PANEL STOOL FECES [facility] Jul 22, 2023 03:55 PM Laboratory - Microbiology Order O&P (STOOL) STOOL [facility] Jul 23, 2023 05:00 AM Laboratory - Chemistry Order FERRITIN ([facility]) BLOOD (LIGHT-GREEN PST) [facility] Jul 23, 2023 03:55 PM Laboratory - Microbiology Order O&P (STOOL) STOOL [facility] Jul 29, 2023 12:00 AM Laboratory - Chemistry Order GIARDIA ANTIGEN DETECTION STOOL [facility]EC[facility] Jul 29, 2023 12:00 AM Laboratory - Chemistry Order OSMOLALITY, FECES STOOL FECES [facility] Jul 29, 2023 12:00 AM Laboratory - Chemistry Order CALPROTECTIN, STOOL STOOL STERILE/NO PRESERVATIVE FECES [facility] Lab Results: +/- 30 days of the encounter This section includes the Chemistry and Hematology Lab Results on record with [facility] for the patient. Radiology Reports and Pathology Reports are provided separately, in subsequent sections. Lab Results This section contains the Chemistry/Hematology Results that were resulted 30 days before or 30 daysafter the date of the Encounter. Date/Time Source Result Type Result - Unit Interpretation Reference Range Comment Aug 04, 2023 12:59 PM [facility] OCCULT BLOOD FITX1 SCREEN Specimen Type: FECES No comment entered. Ordering Provider: GIULIA CHANG MD Report Released Date/Time: Jul 22, 2023 03:55 PM Reporting Lab: [place] [address] [address] Performing Lab: [place] [address] [address] [place] [address] OCCULT BLOOD (FIT) #1 OF 1 Negative Negative Jul 29, 2023 11:15 AM [facility] TRYPTASE Specimen Type: SERUM Comment: REFERENCE RANGE: <11.0 mcg/L The Tryptase test, fluorescent enzyme immunoassay (FEIA), measures both the Alpha and Beta forms of Tryptase. Measuring both forms of Tryptase increases sensitivity for the diagnosis of mastocytosis, and mast cell degranulation as a cause of anaphylaxis. Test Performed by Shaye Lazaro, [facility], [address] [place] [address] Gui Blakely M.D., Ph.D., Director of Laboratories , [facility] [id number] Ordering Provider: GIULIA CHANG MD Report Released Date/Time: Jul 22, 2023 03:55 PM Reporting Lab: [place] [address] [address] [facility] [address] Performing Lab: [address] [facility] Miguel [place] TRYPTASE 11.3 ug/L H SEE BELOW Jul 29, 2023 11:15 AM [facility] CELIAC DISEASE COMPREHENSIVE PANEL Specimen Type: SERUM Comment: INTERPRETATION:N o serological evidence of celiac disease. INTERPRETATION:t TG IgA may normalize in individuals with celiac INTERPRETATION:d isease who maintain a gluten-free diet. Consider HLA INTERPRETATION:D Q2 and DQ8 testing to rule out celiac disease. INTERPRETATION:C eliac INTERPRETATION:d isease is extremely rare in the absence of DQ2 or INTERPRETATION:D Q8. tTG IGA:REFERENCE RANGE: <15.0 U/mL tTG IGA: Value Interpretation tTG IGA: <15.0 Antibody not detected tTG IGA:> or = 15.0 Antibody detected SERUM IGA:Test Performed by Shaye Lazaro, SERUM IGA:[facility], SERUM IGA:[id number] [place], [place] SERUM IGA:Gui Blakely M.D., Ph.D., Director of Laboratories SERUM IGA: , CLIA [id number] Ordering Provider: GIULIA CHANG MD Report Released Date/Time: Jul 22, 2023 03:55 PM Reporting Lab: [facility] [address] Performing Lab: [facility] [place] [address] [facility] IGA, SERUM QUEST 262 mg/dL 70-320 TISSUE TRANSGLUT IgA Ab <1.0 SEE BELOW INTERPRETATION SEE NOTE Jul 29, 2023 11:15 AM [facility] CEA Specimen Type: SERUM No comment entered. Ordering Provider: GIULIA CHANG MD Report Released Date/Time: Jul 22, 2023 03:55 PM Reporting Lab: [facility] [address] Performing Lab: [facility] [address] [place] [address] CEA 1.98 ng/mL 0.0-5.0 Jul 29, 2023 11:15 AM [facility] Vitamin B12 & Folate Specimen Type: SERUM No comment entered. Ordering Provider: GIULIA CHANG MD Report Released Date/Time: Jul 22, 2023 03:55 PM Reporting Lab: [facility] [address] [place] [id number] Performing Lab: [facility] [address] [place] [address] Vitamin B-12 >2000 pg/mL H 210-900 FOLATE SERUM/PLASMA >20.0 ng/mL 7-20 Jul 29, 2023 11:15 AM [facility] CBC Specimen Type: BLOOD No comment entered. Ordering Provider: GIULIA CHANG MD Report Released Date/Time: Jul 22, 2023 03:55 PM Reporting Lab: [facility] [address] [place] [id number] Performing Lab: [facility] [address] [place] [id number] WBC 9.7 10*3/uL 4.0-11.0 RBC 4.52 10*6/uL 4.4-5.9 HGB 14.9 g/dL 13.4-17.5 HEMATOCRIT 42.8 40-52 MCV 94.7 fL 82-98 MCH 32.9 pg 27.0-33.0 MCHC 34.7 g/dL 32.0-36.0 PLT 206 10*3/uL 140-400 RDW-CV 12.7 11.5-14.5 MPV 8.5 fL 6.6-10.6 Jul 29, 2023 11:15 AM [facility] SED RATE Specimen Type: BLOOD No comment entered. Ordering Provider: GIULIA CHANG MD Report Released Date/Time: Jul 22, 2023 03:55 PM Reporting Lab: [place] [address] Performing Lab: [place] [address] SED RATE 6 mm/h 0-20 Jul 29, 2023 11:15 AM [facility] DIFF COUNT (BLOOD) Specimen Type: BLOOD No comment entered. Ordering Provider: GIULIA CHANG MD Report Released Date/Time: Jul 22, 2023 03:55 PM Reporting Lab: [address] Performing Lab: [place] [address] NEUTROPHILS % 61.2 40-77 LYMPHOCYTE % 24.6 14-45 BASOPHILS % 0.8 0-2 MONOCYTE % 8.0 2-14 EOSINOPHILS % 5.4 0-7 LYMPHOCYTE # 2.4 10*3/uL 1.0-4.8 MONOCYTE # 0.8 10*3/uL 0.2-1.0 EOSINOPHIL # 0.5 10*3/uL 0.0-0.5 BASOPHILS # 0.1 10*3/uL 0-0.2 NEUTROPHIL # 5.9 10*3/uL 1.8-7.8 DIFTYPE AUTO Jul 29, 2023 11:15 AM [facility] C REACTIVE PROTEIN (NON-CARDIAC) Specimen Type: SERUM No comment entered. Ordering Provider: GIULIA CHANG MD Report Released Date/Time: Jul 22, 2023 03:55 PM Reporting Lab: [facility] [address] [place] [id number] Performing Lab: [facility] [address] [facility] [address] C REACTIVE PROTEIN (NON-CARDIAC) 0.09 mg/dL 0.00-0.50 Jul 29, 2023 11:15 AM [facility] LIPID PROFILE Specimen Type: PLASMA No comment entered. Ordering Provider: GIULIA CHANG MD Report Released Date/Time: Jul 22, 2023 03:55 PM Reporting Lab: [facility] [address] [facility] [address] Performing Lab: [facility] [address] [place] [address] LDL CHOL CALCULATION 62 mg/dL 0-100 CHOLESTEROL 117 mg/dL 0-200 HDL CHOLESTEROL 42 mg/dL 40-180 TRIGLYCERIDE 67 mg/dL 0-150 CHOLESTEROL:HDL CHOL RATIO 2.8 DIRECT LDL canc mg/dL 0-100 Jul 29, 2023 11:15 AM [facility] URIC ACID Specimen Type: PLASMA No comment entered. Ordering Provider: GIULIA CHANG MD Report Released Date/Time: Jul 22, 2023 03:55 PM Reporting Lab: [facility] [address] [facility] [address] Performing Lab: [facility] [address] [facility] [address] URIC ACID 8.3 mg/dL H 3.5-7.2 Jul 29, 2023 11:15 AM [facility] THYROID PROFILE Specimen Type: PLASMA No comment entered. Ordering Provider: GIULIA CHANG MD Report Released Date/Time: Jul 22, 2023 03:55 PM Reporting Lab: [facility] [address] [facility] [address] Performing Lab: [facility] [address] [facility] [address] TSH 1.0260 u[IU]/mL 0.35-4.8 FREE THYROXINE 0.93 ng/dL 0.6-1.5 Jul 29, 2023 11:15 AM [facility] URINALYSIS Specimen Type: URINE No comment entered. Ordering Provider: GIULIA CHANG MD Report Released Date/Time: Jul 22, 2023 03:55 PM Reporting Lab: [facility] [address] [place] [address] Performing Lab: [facility] [address] [place] [address] URINE COLOR Yellow See_Comment SPECIFIC GRAVITY 1.015 1.005-1.035 UROBILINOGEN NEG mg/dL NEG URINE BILIRUBIN NEG mg/dL NEG URINE KETONES NEG mg/dL NEG URINE GLUCOSE (UA) NEG mg/dL NEG URINE PROTEIN (UA) NEG mg/dL NEG URINE PH 5.0 5.0-9.0 APPEARANCE CLEAR CLEAR URINE BLOOD NEG NEG URINE NITRITE NEG NEG LEUKOCYTE EST (UA) NEG NEG Jul 29, 2023 11:15 AM [facility] HEMOGLOBIN A1C Specimen Type: BLOOD Comment: Values obtained from A1C measurements can vary. For typical A1C assays, a reported value of 7.0 could actually be between 6.72 and 7.28 if measured by a reference method. A reported value of 9.0 could actually be between 8.73 and 9.27. Ordering Provider: GIULIA CHANG MD Report Released Date/Time: Jul 22, 2023 03:55 PM Reporting Lab: [facility] [address] [place] [address] Performing Lab: [place] [address] [address] [place] [address] HEMOGLOBIN A1C 4.9 4.2-5.8 Jul 29, 2023 11:15 AM [facility] MAGNESIUM Specimen Type: PLASMA No comment entered. Ordering Provider: GIULIA CHANG MD Report Released Date/Time: Jul 22, 2023 03:55 PM Reporting Lab: [facility] [address] [place] [address] Performing Lab: [facility] [address] [place] [address] MAGNESIUM 1.7 mg/dL 1.5-2.6 Jul 29, 2023 11:15 AM [facility] IRON GROUP Specimen Type: PLASMA No comment entered. Ordering Provider: GIULIA CHANG MD Report Released Date/Time: Jul 22, 2023 03:55 PM Reporting Lab: [place] [address] [address] [facility] [address] Performing Lab: [facility] [address] [facility] [address] TRANSFERRIN 207 mg/dL 180-330 IRON 113 ug/dL 65-175 CALC. TRANSFERRIN SATURATION 44 15-50 FERRITIN (WPB) 147.69 ng/mL 10-380 Calc TIBC 259 ug/dL L 260-445 Jul 29, 2023 11:15 AM [facility] PSA, FREE & TOT Specimen Type: SERUM No comment entered. Ordering Provider: GIULIA CHANG MD Report Released Date/Time: Jul 23, 2023 08:50 AM Reporting Lab: [place] [address] [address] [facility] [address] Performing Lab: [place] [address] [address] [place] [id number] PSA-TOT <0.10 ng/mL 0.1-4.0 Jul 29, 2023 11:15 AM [facility] BASIC METABOLIC PANEL Specimen Type: PLASMA No comment entered. Ordering Provider: GIULIA CHANG MD Report Released Date/Time: Jul 22, 2023 03:55 PM Reporting Lab: [place] [address] [address] [facility] [address] Performing Lab: [place] [address] [address] [place] [id number] UREA NITROGEN 22 mg/dL 6-22 CALCIUM 9.5 mg/dL 8.5-10.5 CREATININE, SERUM OR PLASMA 0.97 mg/dL 0.60-1.30 GLUCOSE 93 mg/dL 70-100 SODIUM (SERUM/PLASMA) 140 mmol/L 134-145 POTASSIUM 4.3 mmol/L 3.6-5.2 CHLORIDE 103 mmol/L 100-111 CO2 27 mmol/L 21-29 EGFRCr 79 mL/min >=90 Jul 29, 2023 11:15 AM [facility] HEPATIC FUNCTION PANEL Specimen Type: PLASMA No comment entered. Ordering Provider: GIULIA CHANG MD Report Released Date/Time: Jul 22, 2023 03:55 PM Reporting Lab: [place] [address] [address] [facility] [address] Performing Lab: [place] [address] [address] [place] [id number] ALBUMIN 4.4 g/dL 3.4-5.2 ALKALINE PHOSPHATASE 62 U/L 40-150 ALT 19 U/L 0-55 AST 24 U/L 5-34 BILIRUBIN, TOTAL 0.7 mg/dL 0.2-1.2 DIRECT BILIRUBIN 0.3 mg/dL 0.0-0.5 PROTEIN, TOTAL 6.8 g/dL 6.2-8.5 A/G RATIO 1.8 0.8-2.0 Advance Directives: All historical and current Section Date Range: From patient's date of to the date document was created. This section includes ALL of a patient's completed or amended [place] Advance and Rescinded Directives. The entries below indicate that a directive exists for the patient, but an actual copy is not included with this document. The data comes from all [place] facilities. Date Advance Directives Provider Source Jun 30, 2014 ADVANCE DIRECTIVE [facility] Encounter Notes: All associated encounter notes This section contains the clinical notes associated to the Encounter. Date/Time Encounter Note(s) Provider Source Jul 21, 2023 08:32 AM RHEUMATOLOGY TELEP [place] ENCOUNTER NOTE: LOCAL TITLE: TELEPHONE NOTE/RHEUMATOLOGY STANDARD TITLE: RHEUMATOLOGY TELEPHONE ENCOUNTER NOTE DATE OF NOTE: JUL 21, 2023@08:32 ENTRY DATE: JUL 21, 2023@08:32:23 AUTHOR: YVONNE SQUIRES COSIGNER: URGENCY: STATUS: COMPLETED Rheumatology Phone F/U Note: Rheum Hx: #Psoriatic Arthritis - diagnosed 1999 w/ scalp psoriasis, nail pitting, joint pains, enthesitis - previously on MTX but did not tolerate - then placed on Remicade but discontinued in 2010 as he went into remission - symptoms worsened again in 2015, bilateral wrist/hand/shoulder/Achilles - established care at [facility] 02/2018, hep B/C and quant negative(Ordered by [facility]) - Enbrel started 05/28/18 - changed to Humira 05/2019 #Gout - not crystal proven in our records - had hx of gout in his 20s - recent flare in April 2020 after injury - better with prednisone and colchicine - started allopurinol 06/2020 - 03/20/21 allopurinol increased to 400mg QD - 03/20/21 HCQ 200mg BID added #CPPD - By imaging bilat wrists INTERVAL HX: - phone call to patient today to go over his labs obtained from his non-[facility] PCP in [facility] back in May - Patient's CBC without diff is stable, normal WBC, RBC, HGB/HCT - His renal function is stable, his uric acid is elevated at 8.6 - uric acid was 5.0 1 year ago when he was taking the allopurinol 400mg QD - at our last visit on 05/29 he mentioned that he had stopped the allopurinol in the setting of new diarrhea, he wondered if the allopurinol was contributing - he says the diarrhea has not changed since he stopped the allopurinol - has not had any gout flares - joints are feeling good - he says he has had the diarrhea since December 2022 while he was on a trip to the [facility] - no one else on the trip developed diarrhea - he says he hasn't been able to figure out a pattern to the loose stools - can't seem to figure out a specific food that brings it on - describes a quesy feeling in his stomach, nausea, and then diarrhea will come after that - diarrhea can be abrupt, come on suddenly - he has been incontinent of stool - he has woken up at night with the need to have a BM - stool is loose, liquidy at times - he finds that pepto bismul is effective in stopping the diarrhea - he worries about the diarrhea almost daily, isn't sure when it is going to hit - denies blood, but does note that the pepto makes his stools dark - has lost about 25lbs in the last year - dad had colon cancer - patient isn't sure when he had his last colo, it might have been in 2016 but no records, had his colonoscopies in non-[facility] facility and that GI provider has since retired and patient can't obtain records - patient says he has received reassurance from his non-VA PCPs - patient wondered if a colonoscopy would make sense, but he says his other providers seemed to discourage that because of his age ROS: otherwise negative PMHx: reviewed Medications/Allergies: reviewed Labs: reviewed from OSH from May 2023. Imagin05/28/18 Bilat hand x-rays: Impression: 1. Bilateral arthropathy including scattered small cysts or erosions at the bilateral IP joints and a few of the MCP joints with prominent periarticular proliferative bone and scattered periosteal thickening compatible with psoriatic arthritis. 2. 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 3. Osteoarthritic changes at the wrists and first CMC joints. Assessment/Plan: Mr. Kike Merchant is a 82 year old gentleman with a PMH of psoriatic arthritis on ixekizumab, gout (off allopurinol 400mg QD since ~March 2023 in setting of new onset diarrhea), CPPD, OA, SCC, BCC, prostate ca s/p seed, CAD s/p CABG, L-spine stenosis, b/l knee replacements, and s/p right ankle fusion who I am talking to today on the phone in f/u for his recent blood work at [facility]. Patient's uric acid has increased over the last year from 5.0 on allopurinol to now 8.6 off allopurinol. He has not had a gout flare, although he is aware that this is definitely a possibility given his history of gout. He is still very discouraged by this diarrhea that he has had for about 7 months. From what patient tells me, the diarrhea has been a bit dismissed, he has been told that it can be normal to develop diarrhea with older age. Patient is not aware of any work-up that has been done to evaluate for a cause/source of the diarrhea. I do have some concerns as patient does have some alarming symptoms r/t the diarrhea including a 25lb weight loss/inability to gain weight, he is >50 years of age, he has had nocturnal diarrhea, he has been incontinent of stool at times, and his dad had colon cancer. I did explain to patient that there is a difference between a diagnostic colo and a screening colo, and that patient, despite his age, is very functional, active, and overall healthy. I asked him if he would like to pursue more work-up for the diarrhea and he said he would be appreciative. There are some challenges logistically because he gets a lot of care outside of the [place] and he also spends about 8 months out of the year in [place]. Will start with traveling vet consult for some stool samples, cultures, parasite test, and also some lab work. Patient's blood eosinophils in 05/2022 were quite elevated so will reassess this as the outside clinic didn't get CBC with diff. Differentials at this time include eosinophilic colitis, malignancy, and intestinal infection. I also plan to place e-consult to GI here in [facility] to get a better sense of whether colo would be appropriate in this setting for diagnostic reasons. Once I obtain lab/stool results and recommendations from GI, I let Mr. Merchant know I would call him back to discuss. Hopefully a f/u call can be arranged for 2 weeks from now. Copying rheum JOSE ALFREDO to please schedule 2 week phone f/u. 50 minutes was spent in phone discussion with patient, chart review, and documentation of assessment and plan. /bhavesh/ Yvonne Squires, MSN, SKILLS TRAINER Nurse Practitioner, Rheumatology Signed: 07/21/2023 10:35 Receipt Acknowledged By: 07/22/2023 09:17 /bhavesh/ YVONNE YANEZ MSAT [facility]
--- OUTSIDE RECORDS SUMMARY | 2024-04-08 14:42 | XMS_ITS | Encounter Summary ---
Author Name [facility] [place] Organization [facility] [place] [facility] [place] Address [address] [place] [address] Care Team Providers Care Mobile Application Development Lead Name Role Phone CORETTA REY Primary Care [...] Guzman CIGNA INCOME PROTECTIO N (INDEMNIT Y) [facility] Apr 14, 2010 [id number] [facility] [phone] MAYUR,ELOISE HARD PATIENT CIGNA MEDICAL EXPENSE (OPT/PROF ) [facility] Mar 14, 2010 [id number] [facility] BLOHM,ELOISE HARD PATIENT CIGNA BEHAVIORAL HEALTH MENTAL HEALTH [facility] Mar 14, 2010 [id number] [facility] BLOHM,ELOISE HARD PATIENT MEDICARE (WNR) MEDICARE (M) PART B Sep 14, 2007 PART B [id number] BLOHM,ELOISE HARD PATIENT MEDICARE (WNR) MEDICARE (M) PART A Sep 14, 2007 PART A [id number] BLOHM,ELOISE HARD PATIENT MEDICARE (WNR) MEDICARE (M) PART B Sep 14, 2007 PART B [id number] BLOHM,ELOISE HARD PATIENT MEDICARE (WNR) MEDICARE (M) PART A Sep 14, 2007 PART A [id number] [phone] BLOHM,ELOISE HARD PATIENT MEDICARE (WNR) MEDICARE (M) PART A Sep 14, 2007 PART A [id number] [phone] BLOHM,ELOISE HARD PATIENT MEDICARE (WNR) MEDICARE (M) PART B Sep 14, 2007 PART B [id number] BLOHM,ELOISE HARD PATIENT MEDICARE PART D (WNR) MEDICARE (M) PART D Sep 14, 2012 PART D [id number] BLOHM,ELOISE HARD PATIENT OPTIMUM CHOICE POINT OF SERVICE [facility] Aug 14, 1998 [id number] [phone] BLOHM,ELOISE HARD PATIENT Selected Encounter This section includes the information on record at [place] for the Encounter. Date/Time Encounter Type Encounter Description Reason Provider Source May 29, 2023 12:15 PM OFFICE O/P EST HI 40-54 MIN RHEUMATOLOGY/ARTH RITIS ICD-10-CM L40.50 Arthropathic psoriasis, unspecified MIRALDI,ASHLE Y IHE Encounter Template Text not used by [facility] Assessments - Encounter Diagnoses This section includes the primary and secondary diagnoses documented for the Encounter. Date/Time Primary/Secondary Diagnosis Diagnosis Name Provider Source Jun 01, 2023 02:51 PM PRIMARY Arthropathic psoriasis, unspecified EMBERSILVA CARBA[facility]AL [facility] Jun 01, 2023 02:51 PM SECONDARY Spinal stenosis, lumbar region without neurogenic valarie [facility] Plan of Treatment: Future Appointments (+ 6 [...] 20 appointments. The data comes from all [place] treatment facilities. Appointment Date/Time Appointment Type Appointme nt Facility Name Jun 30, 2023 11:30 AM AMB[facility]ATORY - NONE [facility] Jul 29, 2023 11:00 AM AMBULATORY - NONE [facility] Aug 07, 2023 09:15 AM AMBULATORY - MEDICINE [facility] Vital Signs: All taken on the encounter date This section contains inpatient and outpatient Vital Signs collected on the date of the Encounter. Date/Time Temperature Pulse Blood Pressure Respiratory Rate SP02 Pain Height Weight Body Mass Index Source May 29, 2023 12:19 PM 98.2 F 84 /min 138/65 mm[Hg] 96 % 0 152.1 lb 26 [facility] Advance Directives: All historical and current Section Date Range: From patient's date of to the date document was created. This section includes ALL of a patient's completed or amended [facility] Advance and Rescinded Directives. The entries below indicate that a directive exists for the patient, but an actual copy is not included with this document. The data comes from all [place] facilities. Date Advance Directives Provider Source Jun 30, 2014 ADVANCE DIRECTIVE OBED [facility] Encounter Notes: All associated encounter notes This section contains the clinical notes associated to the Encounter. Date/Time Encounter Note(s) Provider Source Jun 10, 2023 02:14 PM ADDENDUM: LOCAL TITLE: Addendum STANDARD TITLE: ADDENDUM DATE OF NOTE: JUN 10, 2023@14:14:59 ENTRY DATE: JUN 10, 2023@14:15 AUTHOR: YVONNE MUNIZ EXP COSIGNER: URGENCY: STATUS: COMPLETED tagging rheum RN and requesting that she call patient and provide information on covid vaccines and availability. 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, nail pitting, joint pains, enthesitis - previously on MTX but did not tolerate - then placed on Remicade but discontinued in 2010 as he went into remission - symptoms worsened again in 2015, bilateral wrist/hand/shoulder/Achilles - established care at [facility] 02/2018, hep B/C and quant negative(Ordered by [...] By imaging bilat wrists INTERVAL HX: - last visit May 2022, patient here for routine f/u for PsA and gout - patient remains on ixekizumab Q4 weeks, patient tolerating without any ADRs - says he stopped the allopurinol about 2 months ago, had been having some GI upset and wondered if the allopurinol was the culprit - ultimately the GI s/s subsided and he stayed off the allopurinol - has not had any gout flares - last uric acid 1 year ago was 5.0 - 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 - wearing a hat and sunscreen every day - overall he feels well - his greatest concern is the spinal stenosis in his lumbar spine and the subsequent neuropathy in addition to the sciatica that comes and goes - he uses heating pads when the sciatica is acting up but otherwise doesn't have much in the way of managing his pain/neuropathy - has never been on gabapentin, lyrica, or duloxetine - feels that mentally he santiago well with the chronic discomfort but does acknowledge that he has good days and not so good days - feels fairly confident he would never want surgery - not having any red/hot/swollen joints - denies AM joint stiffness ROS: no fever, chills, fatigue, night sweats no chest pain, SOB no dry eyes, dry mouth, sores in his mouth no blood in urine/pain with urination no rash no dacylitis, uveitis, enthesitis PMHx: reviewed Medications/Allergies: reviewed Physical Exam: vitals reviewed General: Well appearing, appears stated age, in NAD HEENT: Conjunctiva clear, MMM, no cervical LAD ABD: Soft, nontender Ext: no edema Skin: no erythema or psoriasis plaques Neuro: A&O X3, normal gait MSK: Back: No SI pain Neck: Decreased ROM in extention and right/left rotation Hands: 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 Wrist: very restricted extension/flexion of wrists bilaterally, nontender, no swelling Elbows: FROM, no swelling Labs: reviewed from OSH from November 2022, no uric acid Imagin05/28/18 Bilat hand x-rays: Impression: 1. Bilateral [...] old gentleman with a PMH of psoriatic arthritis, gout, CPPD, OA, SCC, BCC, prostate ca s/p seed, CAD s/p CABG, L-spine stenosis, b/l knee replacements, and s/p right ankle fusion who presents for follow up. Patient on ixekizumab Q4 weeks, has stopped his allopurinol about 2 months ago, but has not had any gout flares. He is feeling quite well and does not have any inflammatory joint symptoms at this time. PLAN: - Continue ixekizumab, prescription renewed today - monitor for gout symptoms, patient would be willing to resume allopurinol if necessary, he believes he will be having lab work next week at PCP appt and will request uric acid be checked as well and then send me results - F/U upon return from [place] in the late spring 45 minutes was spent in face to face discussion with patient, chart review, and documentation of assessment and plan. /bhavesh/ Yvonne Muniz, MSN, REFINERY OPER[employer] Nurse Practitioner, Rheumatology Signed: 06/01/2023 14:51 06/01/2023 ADDENDUM STATUS: COMPLETED patient does also endorse some neuropathy symptoms in his bilateral feet and so we opted to trial capsaicin cream to treat these symptoms today. Patient will pickup at the window. /bhavesh/ Yvonne Muniz MSN, REFINERY OPER[employer] Nurse Practitioner, Rheumatology Signed: 06/01/2023 14:52 YVONNE MUNIZ [facility] May 29, 2023 12:13 PM RHEUMATOLOGY NOTE: LOCAL TITLE: Rheumatology Note STANDARD TITLE: RHEUMATOLOGY NOTE DATE OF NOTE: MAY 29, 2023@12:13 ENTRY DATE: MAY 29, 2023@12:13:05 AUTHOR: YVONNE MUNIZ EXP COSIGNER: URGENCY: STATUS: COMPLETED Rheumatology Note Has ADDENDA Rheumatology F/U Note: Rheum Hx: #Psoriatic Arthritis - diagnosed 1999 w/ scalp psoriasis, nail pitting, joint pains, enthesitis - previously on MTX but did not tolerate - then placed on Remicade but discontinued in 2010 as he went into remission - symptoms worsened again in 2015, bilateral wrist/hand/shoulder/Achilles - established care at [facility] 02/2018, hep B/C and quant negative(Ordered by [...] By imaging bilat wrists INTERVAL HX: - last visit May 2022, patient here for routine f/u for PsA and gout - patient remains on ixekizumab Q4 weeks, patient tolerating without any ADRs - says he stopped the allopurinol about 2 months ago, had been having some GI upset and wondered if the allopurinol was the culprit - ultimately the GI s/s subsided and he stayed off the allopurinol - has not had any gout flares - last uric acid 1 year ago was 5.0 - 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 - wearing a hat and sunscreen every day - overall he feels well - his greatest concern is the spinal stenosis in his lumbar spine and the subsequent neuropathy in addition to the sciatica that comes and goes - he uses heating pads when the sciatica is acting up but otherwise doesn't have much in the way of managing his pain/neuropathy - has never been on gabapentin, lyrica, or duloxetine - feels that mentally he santiago well with the chronic discomfort but does acknowledge that he has good days and not so good days - feels fairly confident he would never want surgery - not having any red/hot/swollen joints - denies AM joint stiffness ROS: no fever, chills, fatigue, night sweats no chest pain, SOB no dry eyes, dry mouth, sores in his mouth no blood in urine/pain with urination no rash no dacylitis, uveitis, enthesitis PMHx: reviewed Medications/Allergies: reviewed Physical Exam: vitals reviewed General: Well appearing, appears stated age, in NAD HEENT: Conjunctiva clear, MMM, no cervical LAD ABD: Soft, nontender Ext: no edema Skin: no erythema or psoriasis plaques Neuro: A&O X3, normal gait MSK: Back: No SI pain Neck: Decreased ROM in extention and right/left rotation Hands: 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 Wrist: very restricted extension/flexion of wrists bilaterally, nontender, no swelling Elbows: FROM, no swelling Labs: reviewed from OSH from November 2022, no uric acid Imagin05/28/18 Bilat hand x-rays: Impression: 1. Bilateral [...] old gentleman with a PMH of psoriatic arthritis, gout, CPPD, OA, SCC, BCC, prostate ca s/p seed, CAD s/p CABG, L-spine stenosis, b/l knee replacements, and s/p right ankle fusion who presents for follow up. Patient on ixekizumab Q4 weeks, has stopped his allopurinol about 2 months ago, but has not had any gout flares. He is feeling quite well and does not have any inflammatory joint symptoms at this time. PLAN: - Continue ixekizumab, prescription renewed today - monitor for gout symptoms, patient would be willing to resume allopurinol if necessary, he believes he will be having lab work next week at PCP appt and will request uric acid be checked as well and then send me results - F/U upon return from [place] in the late spring 45 minutes was spent in face to face discussion with patient, chart review, and documentation of assessment and plan. /bhavesh/ Yvonne Muniz MSN, REFINERY OPERATOR [employer] Nurse Practitioner, Rheumatology Signed: 06/01/2023 14:51 06/01/2023 ADDENDUM STATUS: COMPLETED patient does also endorse some neuropathy symptoms in his bilateral feet and so we opted to trial capsaicin cream to treat these symptoms today. Patient will pickup at the window. /bhavesh/ TRISHA Granados, REFINERY OPERATOR [employer] Nurse Practitioner, Rheumatology Signed: 06/01/2023 14:52 06/10/2023 ADDENDUM STATUS: COMPLETED tagging rheum RN and requesting that she call patient and provide information on covid vaccines and availability. /joshua Muniz MSN, REFINERY OPERATOR [employer] Nurse Practitioner, Rheumatology Signed: 06/10/2023 14:15 Receipt Acknowledged By: * AWAITING SIGNATURE * EVGENY BAZZI [facility]
--- OUTSIDE RECORDS SUMMARY | 2024-04-08 14:42 | XMS_ITS | Encounter Summary ---
Author Organization [facility] Address [address] [place] [address] Care Team Providers Care Room Server Name Role Phone Unavailable Primary Care Provider Unavailabl e Encounter Details Date Type Department Care Team (Late st Contact Info) Description 04/08/2024 Lab Requisition [facility] Pathology & Laboratory Medicine - [facility] [address] [place] [address] Outr Resulting Lab, Provider Social History Tobacco Use Types Packs/Day Years Used Date Smoking Tobacco: Never Assessed Sex and Gender Information Value Date Recorded Sex Assigned at Not on file Gender Identity Not on file Sexual Orientation Not on file documented as of this encounter Plan of Treatment Scheduled Orders Name Type Priority Associated Diagnoses Orde r Schedule OVA/PARASITE EXAM Microbiology Routine Order ed: 04/08/2024 FECAL BACTERIAL PATHOGENS BY PCR Microbiology Routine Ordered: 04/08/2024 GIARDIA AND CRYPTOSPORIDIUM ANTIGENS Microbiology Routine Ordered : 04/08/2024 documented as of this encounter Visit Diagnoses Not on filedocumented in this encounter
--- OUTSIDE RECORDS SUMMARY | 2024-04-08 14:42 | XMS_ITS | Encounter Summary ---
Author Organization [facility] Address [address] [place] [address] Care Team Providers Care Cooler Conveyor Loader Name Role Phone Unavailable Primary Care Provider Unavailabl e Encounter Details Date Type Department Care Team (Late st Contact Info) Description 04/06/2024 Lab Requisition [facility] Pathology & Laboratory Medicine - [facility] [address] [place] [address] Outr Resulting Lab, Provider Social History Tobacco Use Types Packs/Day Years Used Date Smoking Tobacco: Never Assessed Sex and Gender Information Value Date Recorded Sex Assigned at Not on file Gender Identity Not on file Sexual Orientation Not on file documented as of this encounter Plan of Treatment Not on file documented as of this encounter Procedures Procedure Name Priority Date/Time Associated Diagnosis Comments CELIAC DISEASE PANEL Routine 04/06/2024 10:30 EDT documented in this encounter Results * CELIAC DISEASE PANEL (04/06/2024 10:30 EDT) Tissue Transglutaminase Antibody, IgA <4.0 <20.0 CU 04/07/2024 13:02 EDT [facility] Comment: A negative result may be due to IgA deficiency and does not rule out celiac disease. Negative: <20.0 CU Weak Positive: 20.0-30.0 CU Positive: >30.0 CU Results were obtained with the [employer] QUANTA Flash h-tTG IgA chemiluminescent immunoassay. Values obtained with different manufacturers' assay methods may not be used interchangeably. IgA 228 85 - 499 mg/dL 04/07/2024 13:02 EDT [facility] Celiac Disease Interpretation Negative Serology. Celiac disease unlikely. Approximately 10% of patients with celiac disease are seronegative. Patients who are already adhering to a gluten-free diet may also be seronegative. If celiac disease is highly clinically suspected, referral to gastroenterology for additional evaluation is recommended. 04/07/2024 13:02 EDT [facility] Blood VENOUS BLOOD / Unknown 04/06/2024 10:30 EDT 04/06/2024 17:26 EDT Provider Outr Resulting Lab IMMUNOLOGY A ND SEROLOGY ORDERABLES [facility] [address] [place], [place] [id number] documented in this encounter Visit Diagnoses Not on filedocumented in this encounter
--- OUTSIDE RECORDS SUMMARY | 2024-04-08 14:42 | XMS_ITS | Encounter Summary ---
Author Name [facility] [place] Organization [facility] [place] Address [address] [place] [address] Care Team Providers Care Buildings And Grounds Superintendent Name Role Phone CORETTA REY Primary Care [...] Guzman CIGNA INCOME PROTECTIO N (INDEMNIT Y) [facility] Apr 14, 2010 [id number] [facility] [phone] BLOHM,ELOISE HARD PATIENT CIGNA MEDICAL EXPENSE (OPT/PROF ) [facility] Mar 14, 2010 [id number] [facility] BLOHM,ELOISE HARD PATIENT CIGNA BEHAVIORAL HEALTH MENTAL HEALTH [facility] Mar 14, 2010 [id number] [facility] BLOHM,ELOISE HARD PATIENT MEDICARE (WNR) MEDICARE (M) PART B Sep 14, 2007 PART B [id number] BLOHM,ELOISE HARD PATIENT MEDICARE (WNR) MEDICARE (M) PART A Sep 14, 2007 PART A [id number] [phone] BLOHM,ELOISE HARD PATIENT MEDICARE (WNR) MEDICARE (M) PART B Sep 14, 2007 PART B [id number] BLOHM,ELOISE HARD PATIENT MEDICARE (WNR) MEDICARE (M) PART A Sep 14, 2007 PART A [id number] BLOHM,ELOISE HARD PATIENT MEDICARE (WNR) MEDICARE (M) PART A Sep 14, 2007 PART A [id number] BLOHM,ELOISE HARD PATIENT MEDICARE (WNR) MEDICARE (M) PART B Sep 14, 2007 PART B [id number] [phone] BLOHM,ELOISE HARD PATIENT MEDICARE PART D (WNR) MEDICARE (M) PART D Sep 14, 2012 PART D [id number] BLOHM,ELOISE HARD PATIENT OPTIMUM CHOICE POINT OF SERVICE [facility] Aug 14, 1998 [id number] [phone] BLOHM,ELOISE HARD PATIENT Selected Encounter This section includes the information on record at [place] for the Encounter. Date/Time Encounter Type Encounter Description Reason Pro vider Source Jul 31, 2023 02:24 PM Outpatient Encounter GASTROENTEROLOGY ICD-10-CM R19.7 Diarrhea, unspecified DO PJ MCKEON Aidan Encounter Template Text not used by [place] Assessments - Encounter Diagnoses This section includes the primary and secondary diagnoses documented for the Encounter. Date/Time Primary/Secondary Diagnosis Diagnosis Name Provider Source Jul 31, 2023 02:32 PM PRIMARY Diarrhea, unspecified KEITH MCKEON [facility] Plan of Treatment: Future Appointments (+ 6 months) and Future Tests (+/- 45 days) The Plan of Treatment section includes future care activities for the patient from all [place] treatmentfacilities. This section includes future appointments and future orders which are active, pending or scheduled. Future Appointments This section includes appointments that were scheduled to occur 6 months from the date of the Encounter, up to a maximum of 20 appointments. The data comes from all [place] treatment facilities. Appointment Date/Time Appointment Type Appointme nt Facility Name Aug 07, 2023 09:15 AM AMBULATORY - MEDICINE [facility] Active, Pending, and Scheduled Orders This section includes a listing of several types of active, pending, and scheduled orders, including clinic medications orders, diagnostic test orders, procedure orders and consult orders; where the start date of the order is 45 days before the date of the Encounter or 45 days after the date of theEncounter. The data comes from all [facility]. Test Date/Time Test Type Test Details Facility Name Jul 22, 2023 12:00 AM Laboratory - Microbiology Order FECAL FAT, QUALITATIVE STOOL [facility] Jul 22, 2023 12:00 AM Laboratory - Chemistry Order FECAL LACTOFERRIN STOOL [facility] Jul 22, 2023 12:00 AM Laboratory - Microbiology Order YERSINIA CULTURE STOOL [facility] Jul 22, 2023 03:55 PM Laboratory - Chemistry Order GASTROINTESTINAL (GI) PANEL BIOFIRE STOOL [facility] Jul 22, 2023 03:55 PM Laboratory - Chemistry Order LAB C DIFF PANEL STOOL [facility] Jul 22, 2023 03:55 PM Laboratory - Microbiology Order O&P (STOOL) STOOL [facility] Jul 23, 2023 05:00 AM Laboratory - Chemistry Order FERRITIN (WPB) BLOOD (LIGHT-GREEN PST) PLASMA [facility] Jul 23, 2023 03:55 PM Laboratory - Microbiology Order O&P (STOOL) STOOL [facility] Jul 29, 2023 12:00 AM Laboratory - Chemistry Order GIARDIA ANTIGEN DETECTION STOOL [facility] Jul 29, 2023 12:00 AM Laboratory - Chemistry Order OSMOLALITY, FECES STOOL [facility] Jul 29, 2023 12:00 AM Laboratory - Chemistry Order CALPROTECTIN, STOOL STOOL STERILE/NO PRESERVATIVE [facility] Lab Results: +/- 30 days of the encounter This section includes the Chemistry and Hematology Lab Results on record with [place] for the patient. Radiology Reports and Pathology Reports are provided separately, in subsequent sections. Lab Results This section contains the Chemistry/Hematology Results that were resulted 30 days before or 30 daysafter the date of the Encounter. Date/Time Source Result Type Result - Unit Interpretation Reference Range Comment Aug 04, 2023 12:59 PM [facility] OCCULT BLOOD FITX1 SCREEN Specimen Type: FECES No comment entered. Ordering Provider: GIULIA CHANG MD Report Released Date/Time: Jul 22, 2023 03:55 PM Reporting Lab: [place] [address] [address] [facility] [address] Performing Lab: [place] [address] [address] OCCULT BLOOD (FIT) #1 OF 1 Negative Negative Jul 29, 2023 11:15 AM [facility] TRYPTASE Specimen Type: SERUM Comment: REFERENCE RANGE: <11.0 mcg/L The Tryptase test, fluorescent enzyme immunoassay (FEIA), measures both the Alpha and Beta forms of Tryptase. Measuring both forms of Tryptase increases sensitivity for the diagnosis of mastocytosis, and mast cell degranulation as a cause of anaphylaxis. Test Performed by Sydnee Lazaro, [employer], [address] [place], [place] Gui Blakely M.D., Ph.D., Director of [employer] , CLIA [id number] Ordering Provider: GIULIA CHANG MD Report Released Date/Time: Jul 22, 2023 03:55 PM Reporting Lab: [place] [address] [facility] [address] Performing Lab: [address] SYDNEE SOLOMON TRYPTASE 11.3 ug/L H SEE BELOW Jul 29, 2023 11:15 AM [facility] CELIAC DISEASE COMPREHENSIVE PANEL Specimen Type: SERUM [...] 15.0 Antibody detected SERUM IGA:Test Performed by [employer], SERUM IGA:[employer], SERUM IGA:[address] [employer], [place] SERUM IGA:Gui Blakely M.D., Ph.D., Director of Laboratories SERUM IGA: , CLIA [id number] Ordering Provider: GIULIA CHANG MD Report Released Date/Time: Jul 22, 2023 03:55 PM Reporting Lab: [facility] [address] Performing Lab: [facility] [address] [place] IGA, SERUM QUEST 262 mg/dL 70-320 TISSUE TRANSGLUT IgA Ab <1.0 SEE BELOW INTERPRETATION SEE NOTE Jul 29, 2023 11:15 AM [facility] CEA Specimen Type: SERUM No comment entered. Ordering Provider: GIULIA CHANG MD Report Released Date/Time: Jul 22, 2023 03:55 PM Reporting Lab: [facility] [address] [place] [address] Performing Lab: [place] [address] [facility] [address] CEA 1.98 ng/mL 0.0-5.0 Jul 29, 2023 11:15 AM [facility] Vitamin B12 & Folate Specimen Type: SERUM No comment entered. Ordering Provider: GIULIA CHANG MD Report Released Date/Time: Jul 22, 2023 03:55 PM Reporting Lab: [facility] [address] Performing Lab: [facility] [address] [place] [address] Vitamin B-12 >2000 pg/mL H 210-900 FOLATE SERUM/PLASMA >20.0 ng/mL 7-20 Jul 29, 2023 11:15 AM [facility] SED RATE Specimen Type: BLOOD No comment entered. Ordering Provider: GIULIA CHANG MD Report Released Date/Time: Jul 22, 2023 03:55 PM Reporting Lab: [facility] [address] [facility] [address] Performing Lab: [facility] [address] [facility] [address] SED RATE 6 mm/h 0-20 Jul 29, 2023 11:15 AM [facility] CBC Specimen Type: BLOOD No comment entered. Ordering Provider: GIULIA CHANG MD Report Released Date/Time: Jul 22, 2023 03:55 PM Reporting Lab: [place] [address] [facility] [address] Performing Lab: [place] [address] [place] [id number] WBC 9.7 10*3/uL 4.0-11.0 RBC 4.52 10*6/uL 4.4-5.9 HGB 14.9 g/dL 13.4-17.5 HEMATOCRIT 42.8 40-52 MCV 94.7 fL 82-98 MCH 32.9 pg 27.0-33.0 MCHC 34.7 g/dL 32.0-36.0 PLT 206 10*3/uL 140-400 RDW-CV 12.7 11.5-14.5 MPV 8.5 fL 6.6-10.6 Jul 29, 2023 11:15 AM [facility] DIFF COUNT (BLOOD) Specimen Type: BLOOD No comment entered. Ordering Provider: GIULIA CHANG MD Report Released Date/Time: Jul 22, 2023 03:55 PM Reporting Lab: [place] [address] [place] [id number] Performing Lab: [place] [address] [place] [address] NEUTROPHILS % 61.2 40-77 LYMPHOCYTE % 24.6 14-45 BASOPHILS % 0.8 0-2 MONOCYTE % 8.0 2-14 EOSINOPHILS % 5.4 0-7 LYMPHOCYTE # 2.4 10*3/uL 1.0-4.8 MONOCYTE # 0.8 10*3/uL 0.2-1.0 EOSINOPHIL # 0.5 10*3/uL 0.0-0.5 BASOPHILS # 0.1 10*3/uL 0-0.2 NEUTROPHIL # 5.9 10*3/uL 1.8-7.8 DIFTYPE AUTO Jul 29, 2023 11:15 AM [facility] C REACTIVE PROTEIN (NON-CARDIAC) Specimen Type: SERUM No comment entered. Ordering Provider: GIULIA CHANG MD Report Released Date/Time: Jul 22, 2023 03:55 PM Reporting Lab: [place] [address] [facility] [address] Performing Lab: [place] [address] [place] [address] C REACTIVE PROTEIN (NON-CARDIAC) 0.09 mg/dL 0.00-0.50 Jul 29, 2023 11:15 AM [facility] URIC ACID Specimen Type: PLASMA No comment entered. Ordering Provider: GIULIA CHANG MD Report Released Date/Time: Jul 22, 2023 03:55 PM Reporting Lab: [facility] [address] [facility] [address] Performing Lab: [facility] [address] [place] [id number] URIC ACID 8.3 mg/dL H 3.5-7.2 Jul 29, 2023 11:15 AM [facility] THYROID PROFILE Specimen Type: PLASMA No comment entered. Ordering Provider: GIULIA CHANG MD Report Released Date/Time: Jul 22, 2023 03:55 PM Reporting Lab: [facility] [address] [facility] [address] Performing Lab: [facility] [address] [facility] [address] TSH 1.0260 u[IU]/mL 0.35-4.8 FREE THYROXINE 0.93 ng/dL 0.6-1.5 Jul 29, 2023 11:15 AM [facility] LIPID PROFILE Specimen Type: PLASMA No comment entered. Ordering Provider: GIULIA CHANG MD Report Released Date/Time: Jul 22, 2023 03:55 PM Reporting Lab: [facility] [address] [facility] [address] Performing Lab: [facility] [address] [facility] [address] LDL CHOL CALCULATION 62 mg/dL 0-100 CHOLESTEROL 117 mg/dL 0-200 HDL CHOLESTEROL 42 mg/dL 40-180 TRIGLYCERIDE 67 mg/dL 0-150 CHOLESTEROL:HDL CHOL RATIO 2.8 DIRECT LDL canc mg/dL 0-100 Jul 29, 2023 11:15 AM [facility] URINALYSIS Specimen Type: URINE No comment entered. Ordering Provider: GIULIA CHANG MD Report Released Date/Time: Jul 22, 2023 03:55 PM Reporting Lab: [facility] [address] [facility] [address] Performing Lab: [facility] [address] [facility] [address] URINE COLOR Yellow See_Comment SPECIFIC GRAVITY 1.015 1.005-1.035 UROBILINOGEN NEG mg/dL NEG URINE BILIRUBIN NEG mg/dL NEG URINE KETONES NEG mg/dL NEG URINE GLUCOSE (UA) NEG mg/dL NEG URINE PROTEIN (UA) NEG mg/dL NEG URINE PH 5.0 5.0-9.0 APPEARANCE CLEAR CLEAR URINE BLOOD NEG NEG URINE NITRITE NEG NEG LEUKOCYTE EST (UA) NEG NEG Jul 29, 2023 11:15 AM [facility] HEMOGLOBIN A1C Specimen Type: BLOOD Comment: Values obtained from A1C measurements can vary. For typical A1C assays, a reported value of 7.0 could actually be between 6.72 and 7.28 if measured by a reference method. A reported value of 9.0 could actually be between 8.73 and 9.27. Ordering Provider: GIULIA CHANG MD Report Released Date/Time: Jul 22, 2023 03:55 PM Reporting Lab: [place] [address] [place] [address] Performing Lab: [place] [address] [place] [address] HEMOGLOBIN A1C 4.9 4.2-5.8 Jul 29, 2023 11:15 AM [facility] MAGNESIUM Specimen Type: PLASMA No comment entered. Ordering Provider: GIULIA CHANG MD Report Released Date/Time: Jul 22, 2023 03:55 PM Reporting Lab: [place] [address] [place] [address] Performing Lab: [place] [address] [place] [address] MAGNESIUM 1.7 mg/dL 1.5-2.6 Jul 29, 2023 11:15 AM [facility] IRON GROUP Specimen Type: PLASMA No comment entered. Ordering Provider: GIULIA CHANG MD Report Released Date/Time: Jul 22, 2023 03:55 PM Reporting Lab: [place] [address] [place] [id number] Performing Lab: [place] [address] [place] [address] TRANSFERRIN 207 mg/dL 180-330 IRON 113 ug/dL 65-175 CALC. TRANSFERRIN SATURATION 44 15-50 FERRITIN (WPB) 147.69 ng/mL 10-380 Calc TIBC 259 ug/dL L 260-445 Jul 29, 2023 11:15 AM [facility] HEPATIC FUNCTION PANEL Specimen Type: PLASMA No comment entered. Ordering Provider: GIULIA CHANG MD Report Released Date/Time: Jul 22, 2023 03:55 PM Reporting Lab: [place] [address] [facility] [address] Performing Lab: [facility] [address] [place] [id number] ALBUMIN 4.4 g/dL 3.4-5.2 ALKALINE PHOSPHATASE 62 U/L 40-150 ALT 19 U/L 0-55 AST 24 U/L 5-34 BILIRUBIN, TOTAL 0.7 mg/dL 0.2-1.2 DIRECT BILIRUBIN 0.3 mg/dL 0.0-0.5 PROTEIN, TOTAL 6.8 g/dL 6.2-8.5 A/G RATIO 1.8 0.8-2.0 Jul 29, 2023 11:15 AM [facility] BASIC METABOLIC PANEL Specimen Type: PLASMA No comment entered. Ordering Provider: GIULIA CHANG MD Report Released Date/Time: Jul 22, 2023 03:55 PM Reporting Lab: [place] [address] [facility] [address] Performing Lab: [place] [address] [facility] [address] UREA NITROGEN 22 mg/dL 6-22 CALCIUM 9.5 mg/dL 8.5-10.5 CREATININE, SERUM OR PLASMA 0.97 mg/dL 0.60-1.30 GLUCOSE 93 mg/dL 70-100 SODIUM (SERUM/PLASMA) 140 mmol/L 134-145 POTASSIUM 4.3 mmol/L 3.6-5.2 CHLORIDE 103 mmol/L 100-111 CO2 27 mmol/L 21-29 EGFRCr 79 mL/min >=90 Jul 29, 2023 11:15 AM [facility] PSA, FREE & TOT Specimen Type: SERUM No comment entered. Ordering Provider: GIULIA CHANG MD Report Released Date/Time: Jul 23, 2023 08:50 AM Reporting Lab: [place] [address] [facility] [address] Performing Lab: [place] [address] [facility] [address] PSA-TOT <0.10 ng/mL 0.1-4.0 Advance Directives: All historical and current Section Date Range: From patient's date of to the date document was created. This section includes ALL of a patient's completed or amended [place] Advance and Rescinded Directives. The entries below indicate that a directive exists for the patient, but an actual copy is not included with this document. The data comes from all [place] facilities. Date Advance Directives Provider Source Jun 30, 2014 ADVANCE DIRECTIVE OBED [facility] Encounter Notes: All associated encounter notes This section contains the clinical notes associated to the Encounter. Date/Time Encounter Note(s) Provider Source Jul 31, 2023 02:24 PM GASTROENTEROLOGY CONSULT: LOCAL TITLE: CONSULT: Gastroenterology STANDARD TITLE: GASTROENTEROLOGY CONSULT DATE OF NOTE: JUL 31, 2023@14:24 ENTRY DATE: JUL 31, 2023@14:24:52 AUTHOR: TRI MCKEON EXP COSIGNER: URGENCY: STATUS: COMPLETED I reviewed the 07/21 Telephone note and the e consult itself. The complaint if of chronic diarrhea (dating back to a trip in December). Certain 'red flag' type sympotoms are included in description of the presentation including nocturnal diarrhea, incontinence and reported weight loss. The question to GI is primarily around whether colonoscopy should be completed. Based on what is written, certainly that would be reasonable. Guidelines around stopping colonoscopy pertain to those that are aysmptomatic (e.g. generally screening is not reccomended after age 75 and certainly not reccomended after age 85), but those considerations are not relevant here (the patient has new and unexplained symptoms). The role of colonoscopy would be to definitely exclude recognized causes of diarrhea---like microscopic colitis--that require biopsy of the colonic mucosa (even when it is normal in appearance). More definitively ruling out inflammatory bowel disease would also be possible. In terms of other work up, certainly stool for infectious causes AND c diff (if there was any exposure to antibiotics back around that time) could be considered. A TTG to definitely exclude celiac disease might also be considered, but that is less likely here. /bhavesh/ Tri Mckeon MD MPH Staff Director Emergency Signed: 07/31/2023 14:32 TRI MCKEON [facility]
--- OUTSIDE RECORDS SUMMARY | 2024-04-08 14:42 | XMS_ITS | Encounter Summary ---
Author Name Department of [facility] [place] Organization [facility] [place] Address [address] [place] [address] Care Team Providers Care Assistant Account Executive Name Role Phone CORETTA REY Primary Care [...] Guzman CIGNA INCOME PROTECTIO N (INDEMNIT Y) [facility] Apr 14, 2010 [id number] [facility] MAYUR,ELOISE HARD PATIENT CIGNA MEDICAL EXPENSE (OPT/PROF ) [facility] Mar 14, 2010 [id number] [facility] BLOHM,ELOISE HARD PATIENT CIGNA BEHAVIORAL HEALTH MENTAL HEALTH [facility] Mar 14, 2010 [id number] [facility] BLOHM,ELOISE HARD PATIENT MEDICARE (WNR) MEDICARE (M) PART B Sep 14, 2007 PART B [id number] BLOHM,ELOISE HARD PATIENT MEDICARE (WNR) MEDICARE (M) PART A Sep 14, 2007 PART A [id number] BLOHM,ELOISE HARD PATIENT MEDICARE (WNR) MEDICARE (M) PART A Sep 14, 2007 PART A [id number] [phone] BLOHM,ELOISE HARD PATIENT MEDICARE (WNR) MEDICARE (M) PART B Sep 14, 2007 PART B [id number] BLOHM,ELOISE HARD PATIENT MEDICARE (WNR) MEDICARE (M) PART A Sep 14, 2007 PART A [id number] [phone] [id number] BLOHM,ELOISE HARD PATIENT MEDICARE (WNR) MEDICARE (M) PART B Sep 14, 2007 PART B [id number] BLOHM,ELOISE HARD PATIENT MEDICARE PART D (WNR) MEDICARE (M) PART D Sep 14, 2012 PART D [id number] [phone] BLOHM,ELOISE HARD PATIENT OPTIMUM CHOICE POINT OF SERVICE [facility] Aug 14, 1998 [id number] [phone] BLOHM,ELOISE HARD PATIENT Selected Encounter This section includes the information on record at [place] for the Encounter. Date/Time Encounter Type Encounter Description Reason Pro vider Source Apr 28, 2023 08:21 AM Outpatient Encounter ADMIN PAT ACTIVTIES (MASNONCT) [facility] Encounter Template Text not used by [place] Plan of Treatment: Future Appointments (+ 6 months) and Future Tests (+/- 45 days) The Plan of Treatment section includes future care activities for the patient from all [place] treatmentfacilities. This section includes future appointments and future orders which are active, pending or scheduled. Future Appointments This section includes appointments that were scheduled to occur 6 months from the date of the Encounter, up to a maximum of 20 appointments. The data comes from all [place] treatment facilities. Appointment Date/Time Appointment Type Appointme nt Facility Name May 29, 2023 12:15 PM AMBULATORY - MEDICINE BRUCE [facility] Jun 30, 2023 11:30 AM AMBULATORY - NONE [facility] Jul 29, 2023 11:00 AM AMBULATORY - NONE [facility] Aug 07, 2023 09:15 AM AMBULATORY - MEDICINE BRCUE PAIZ [facility] Advance Directives: All historical and current Section Date Range: From patient's date of to the date document was created. This section includes ALL of a patient's completed or amended [place] Advance and Rescinded Directives. The entries below indicate that a directive exists for the patient, but an actual copy is not included with this document. The data comes from all [place] facilities. Date Advance Directives Provider Source Jun 30, 2014 ADVANCE DIRECTIVE OBED [facility] Encounter Notes: All associated encounter notes This section contains the clinical notes associated to the Encounter. Date/Time Encounter Note(s) Provider Source Apr 28, 2023 08:21 AM LETTERS: LOCAL TITLE: LETTER TO PATIENT ATTEMPT TO CONTACT STANDARD TITLE: LETTERS DATE OF NOTE: APR 28, 2023@08:21 ENTRY DATE: APR 28, 2023@08:21:57 AUTHOR: SANDY MAN EXP COSIGNER: URGENCY: STATUS: COMPLETED LETTER TO PATIENT ATTEMPT TO CONTACT Has ADDENDA [address] [address] APR 28, 2023 RIGOBERTO MERCHANT [address] [place] [address] Dear RIGOBERTO MERCHANT, [facility] [place] is trying to reach you to schedule an appointment. If you have already been in contact with the clinic and scheduled an appointment you may disregard this letter. If we do not hear from you within 14 days, we will assume you no longer desire an appointment. Please call one of the numbers provided below so that we may find a suitable date for you: Service: Rheumatology Service Direct: [phone] Ext: [phone] Option 2 Toll Free: [phone] [phone] Option 2 We look forward to hearing from you. Sincerely, Clinical Operations 04/28/2023 ADDENDUM STATUS: COMPLETED Made first phone call, left a voice message /bhavesh/ SANDY MAN MSA Signed: 04/28/2023 08:22 SANDY MAN [facility]
--- OUTSIDE RECORDS SUMMARY | 2024-04-08 14:42 | XMS_ITS | Clinical Summary ---
Author Organization [facility] Address [address] [place] [address] Care Team Providers Care Information Technology Internship Name Role Phone Unavailable Primary Care Provider Unavailabl e Encounters Date Type Department Care Team Description 04/08/2024 Lab Requisition [facility] Pathology & Laboratory [address] [address] Outr Resulting Lab, Provider 04/06/2024 Lab Requisition [facility] Pathology & Laboratory [address] [address] Outr Resulting Lab, Provider from Last 3 Months Social History Tobacco Use Types Packs/Day Years Used Date Smoking Tobacco: Never Assessed Sex and Gender Information Value Date Recorded Sex Assigned at Not on file Gender Identity Not on file Sexual Orientation Not on file Plan of Treatment Not on file Procedures Procedure Name Priority Date/Time Associated Diagnosis Comments CELIAC DISEASE PANEL Routine 04/06/2024 10:30 EDT from Last 3 Months Results * CELIAC DISEASE PANEL (04/06/2024 10:30 EDT) Tissue Transglutaminase Antibody, IgA <4.0 <20.0 CU 04/07/2024 13:02 EDT [facility] Comment: A negative result may be due to IgA deficiency and does not rule out celiac disease. Negative: <20.0 CU Weak Positive: 20.0-30.0 CU Positive: >30.0 CU Results were obtained with the [employer] Flash h-tTG IgA chemiluminescent immunoassay. Values obtained with different manufacturers' assay methods may not be used interchangeably. IgA 228 85 - 499 mg/dL 04/07/2024 13:02 EDT [facility] Celiac Disease Interpretation Negative Serology. Celiac disease unlikely. Approximately 10% of patients with celiac disease are seronegative. Patients who are already adhering to a gluten-free diet may also be seronegative. If celiac disease is highly clinically suspected, referral to gastroenterology for additional evaluation is recommended. 04/07/2024 13:02 EDT [facility] Blood VENOUS BLOOD / Unknown 04/06/2024 10:30 EDT 04/06/2024 17:26 EDT Provider Outr Resulting Lab IMMUNOLOGY A ND SEROLOGY ORDERABLES [facility] [address] [place] [address] from Last 3 Months
--- OUTSIDE RECORDS SUMMARY | 2024-04-08 14:42 | XMS_ITS | Referral Summary ---
Author Organization [facility] Address [address] [place] [address] Care Team Providers Care Banana Loader Name Role Phone Unavailable Primary Care Provider Unavailabl e Encounters Date Type Department Care Team Description 04/08/2024 Lab Requisition [facility] Pathology & Laboratory [address] [address] Outr Resulting Lab, Provider 04/06/2024 Lab Requisition [facility] Pathology & Laboratory [address] [address] Outr Resulting Lab, Provider from Last 3 [...] IgA <4.0 <20.0 CU 04/07/2024 13:02 EDT [facility] Comment: A negative result may be due to IgA deficiency and does not rule out celiac disease. Negative: <20.0 CU Weak Positive: 20.0-30.0 CU Positive: >30.0 CU Results were obtained with the Tap.MeA Flash h-tTG IgA chemiluminescent immunoassay. Values obtained with different manufacturers' assay methods may not be used interchangeably. IgA 228 85 - 499 mg/dL 04/07/2024 13:02 EDT [facility] Celiac Disease Interpretation Negative Serology. Celiac disease unlikely. Approximately 10% of patients with celiac disease are seronegative. Patients who are already adhering to a gluten-free diet may also be seronegative. If celiac disease is highly clinically suspected, referral to gastroenterology for additional evaluation is recommended. 04/07/2024 13:02 EDT [facility] Blood VENOUS BLOOD / Unknown 04/06/2024 10:30 EDT 04/06/2024 17:26 EDT Provider Outr Resulting Lab IMMUNOLOGY A [place] SEROLOGY ORDERABLES [facility] [address] [place] [address] from Last 3 Months
--- OUTSIDE RECORDS SUMMARY | 2024-04-08 14:42 | XMS_ITS | Encounter Summary ---
Author Name [facility] Organization [facility] Address [address] [place] [address] Care Team Providers Care Bankruptcy Legal Assistant Name Role Phone CORETTA REY Primary Care [...] Guzman CIGNA INCOME PROTECTIO N (INDEMNIT Y) [facility] Apr 14, 2010 [id number] [facility] MAYUR,ELOISE HARD PATIENT CIGNA MEDICAL EXPENSE (OPT/PROF ) [facility] Mar 14, 2010 [id number] [facility] BLOHM,ELOISE HARD PATIENT CIGNA BEHAVIORAL HEALTH MENTAL HEALTH [facility] INS Mar 14, 2010 [id number] [facility] BLOHM,ELOISE HARD PATIENT MEDICARE (WNR) MEDICARE (M) PART B Sep 14, 2007 PART B [id number] [id number] BLOHM,ELOISE HARD PATIENT MEDICARE (WNR) MEDICARE (M) PART A Sep 14, 2007 PART A [id number] BLOHM,ELOISE HARD PATIENT MEDICARE (WNR) MEDICARE (M) PART A Sep 14, 2007 PART A [id number] BLOHM,ELOISE HARD PATIENT MEDICARE (WNR) MEDICARE (M) PART B Sep 14, 2007 PART B [id number] BLOHM,ELOISE HARD PATIENT MEDICARE (WNR) MEDICARE (M) PART A Sep 14, 2007 PART A [id number] BLOHM,ELOISE HARD PATIENT MEDICARE (WNR) MEDICARE (M) PART B Sep 14, 2007 PART B [id number] [phone] BLOHM,ELOISE HARD PATIENT MEDICARE PART D (WNR) MEDICARE (M) PART D Sep 14, 2012 PART D [id number] BLOHM,ELOISE HARD PATIENT OPTIMUM CHOICE POINT OF SERVICE [facility] Aug 14, 1998 [id number] [phone] BLOHM,ELOISE HARD PATIENT Selected Encounter This section includes the information on record at [place] for the Encounter. Date/Time Encounter Type Encounter Description Reason Pro vider Source Jul 02, 2023 05:57 PM Outpatient Encounter ADMIN PAT ACTIVTIES (MASNONCT) IHE Encounter Template Text not used by [place] Plan of Treatment: Future Appointments (+ 6 months) and Future Tests (+/- 45 days) The Plan of Treatment section includes future care activities for the patient from all [place] treatmentfacilities. This section includes future appointments and future orders which are active, pending or scheduled. Future Appointments This section includes appointments that were scheduled to occur 6 months from the date of the Encounter, up to a maximum of 20 appointments. The data comes from all [place] treatment facilities. Appointment Date/Time Appointment Type Appointme nt Facility Name Jul 29, 2023 11:00 AM [facility]ATORY - NONE [facility] Aug 07, 2023 09:15 AM AMBULATORY - MEDICINE [facility] Active, Pending, and Scheduled Orders This section includes a listing of several types of active, pending, and scheduled orders, including clinic medications orders, diagnostic test orders, procedure orders and consult orders; where the start date of the order is 45 days before the date of the Encounter or 45 days after the date of theEncounter. The data comes from all [place] treatment facilities. Test Date/Time Test Type Test Details Facility Name Jul 22, 2023 12:00 AM Laboratory - Microbiology Order FECAL FAT, QUALITATIVE STOOL [facility] Jul 22, 2023 12:00 AM Laboratory - Microbiology Order YERSINIA CULTURE STOOL [facility] Jul 22, 2023 12:00 AM Laboratory - Chemistry Order FECAL LACTOFERRIN STOOL [facility] Jul 22, 2023 03:55 PM Laboratory - Chemistry Order GASTROINTESTINAL (GI) PANEL BIOFIRE STOOL [facility] Jul 22, 2023 03:55 PM Laboratory - Chemistry Order LAB C DIFF PANEL STOOL FECES [facility] Jul 22, 2023 03:55 PM Laboratory - Microbiology Order O&P (STOOL) STOOL [facility] Jul 23, 2023 05:00 AM Laboratory - Chemistry Order FERRITIN (WPB) BLOOD (LIGHT-GREEN PST) PLASMA [facility] Jul 23, 2023 03:55 PM Laboratory - Microbiology Order O&P (STOOL) STOOL [facility] Jul 29, 2023 12:00 AM Laboratory - Chemistry Order GIARDIA ANTIGEN DETECTION STOOL [facility] Jul 29, 2023 12:00 AM Laboratory - Chemistry Order CALPROTECTIN, STOOL STOOL STERILE/NO PRESERVATIVE [facility] Jul 29, 2023 12:00 AM Laboratory - Chemistry Order OSMOLALITY, FECES STOOL [facility]EC[facility] Lab Results: +/- 30 days of the encounter This section includes the Chemistry and Hematology Lab Results on record with [place] for the patient. Radiology Reports and Pathology Reports are provided separately, in subsequent sections. Lab Results This section contains the Chemistry/Hematology Results that were resulted 30 days before or 30 daysafter the date of the Encounter. Date/Time Source Result Type Result - Unit Interpretation Reference Range Comment Jul 29, 2023 11:15 AM [facility] TRYPTASE Specimen Type: SERUM Comment: REFERENCE RANGE: <11.0 mcg/L The Tryptase test, fluorescent enzyme immunoassay (FEIA), measures both the Alpha and Beta forms of Tryptase. Measuring both forms of Tryptase increases sensitivity for the diagnosis of mastocytosis, and mast cell degranulation as a cause of anaphylaxis. Test Performed by [facility], [place], [address] [place], [place] Gui Blakely M.D., Ph.D., Director of Laboratories , CLIA [id number] Ordering Provider: GIULIA CHANG MD Report Released Date/Time: Jul 22, 2023 03:55 PM Reporting Lab: [facility] [address] [facility] [address] Performing Lab: [address] [place] TRYPTASE 11.3 ug/L H SEE BELOW Jul 29, 2023 11:15 AM [facility] CELIAC DISEASE COMPREHENSIVE PANEL Specimen Type: SERUM [...] 15.0 Antibody detected SERUM IGA:Test Performed by [facility] [place], SERUM IGA:[place], SERUM IGA:[id number] [place], [place] SERUM IGA:Gui Blakely M.D., Ph.D., Director of Laboratories SERUM IGA: , CLIA [id number] Ordering Provider: GIULIA CHANG MD Report Released Date/Time: Jul 22, 2023 03:55 PM Reporting Lab: [facility] [address] [facility] [address] Performing Lab: [address] SYDNEE SOLOMON IGA, SERUM QUEST 262 mg/dL 70-320 TISSUE TRANSGLUT IgA Ab <1.0 SEE BELOW INTERPRETATION SEE NOTE Jul 29, 2023 11:15 AM [facility] CEA Specimen Type: SERUM No comment entered. Ordering Provider: GIULIA CHANG MD Report Released Date/Time: Jul 22, 2023 03:55 PM Reporting Lab: [facility] [address] [facility] [address] Performing Lab: [facility] [address] [facility] [address] CEA 1.98 ng/mL 0.0-5.0 Jul 29, 2023 11:15 AM [facility] Vitamin B12 & Folate Specimen Type: SERUM No comment entered. Ordering Provider: GIULIA CHANG MD Report Released Date/Time: Jul 22, 2023 03:55 PM Reporting Lab: [facility] [address] [facility] [address] Performing Lab: [facility] [address] [facility] [address] Vitamin B-12 >2000 pg/mL H 210-900 FOLATE SERUM/PLASMA >20.0 ng/mL 7-20 Jul 29, 2023 11:15 AM [facility] CBC Specimen Type: BLOOD No comment entered. Ordering Provider: GIULIA CHANG MD Report Released Date/Time: Jul 22, 2023 03:55 PM Reporting Lab: [facility] [address] [facility] [address] Performing Lab: [facility] [address] [facility] [address] WBC 9.7 10*3/uL 4.0-11.0 RBC 4.52 10*6/uL 4.4-5.9 HGB 14.9 g/dL 13.4-17.5 HEMATOCRIT 42.8 40-52 MCV 94.7 fL 82-98 MCH 32.9 pg 27.0-33.0 MCHC 34.7 g/dL 32.0-36.0 PLT 206 10*3/uL 140-400 RDW-CV 12.7 11.5-14.5 MPV 8.5 fL 6.6-10.6 Jul 29, 2023 11:15 AM [facility] SED RATE Specimen Type: BLOOD No comment entered. Ordering Provider: GIULIA CHANG MD Report Released Date/Time: Jul 22, 2023 03:55 PM Reporting Lab: [facility] [address] [facility] [address] Performing Lab: [facility] [address] [place] [address] SED RATE 6 mm/h 0-20 Jul 29, 2023 11:15 AM [facility] DIFF COUNT (BLOOD) Specimen Type: BLOOD No comment entered. Ordering Provider: GIULIA CHANG MD Report Released Date/Time: Jul 22, 2023 03:55 PM Reporting Lab: [place] [address] [place] [address] Performing Lab: [place] [address] [address] [place] [address] NEUTROPHILS % 61.2 40-77 LYMPHOCYTE % 24.6 14-45 BASOPHILS % 0.8 0-2 MONOCYTE % 8.0 2-14 EOSINOPHILS % 5.4 0-7 LYMPHOCYTE # 2.4 10*3/uL 1.0-4.8 MONOCYTE # 0.8 10*3/uL 0.2-1.0 EOSINOPHIL # 0.5 10*3/uL 0.0-0.5 BASOPHILS # 0.1 10*3/uL 0-0.2 NEUTROPHIL # 5.9 10*3/uL 1.8-7.8 DIFTYPE AUTO Jul 29, 2023 11:15 AM [facility] C REACTIVE PROTEIN (NON-CARDIAC) Specimen Type: SERUM No comment entered. Ordering Provider: GIULIA CHANG MD Report Released Date/Time: Jul 22, 2023 03:55 PM Reporting Lab: [address] [place] [address] Performing Lab: [address] [place] [address] C REACTIVE PROTEIN (NON-CARDIAC) 0.09 mg/dL 0.00-0.50 Jul 29, 2023 11:15 AM [facility] URIC ACID Specimen Type: PLASMA No comment entered. Ordering Provider: GIULIA CHANG MD Report Released Date/Time: Jul 22, 2023 03:55 PM Reporting Lab: [place] [address] [place] [address] Performing Lab: [address] [place] [address] URIC ACID 8.3 mg/dL H 3.5-7.2 Jul 29, 2023 11:15 AM [facility] THYROID PROFILE Specimen Type: PLASMA No comment entered. Ordering Provider: GIULIA CHANG MD Report Released Date/Time: Jul 22, 2023 03:55 PM Reporting Lab: [facility] [address] [place] [address] Performing Lab: [facility] [address] [place] [address] TSH 1.0260 u[IU]/mL 0.35-4.8 FREE THYROXINE 0.93 ng/dL 0.6-1.5 Jul 29, 2023 11:15 AM [facility] LIPID PROFILE Specimen Type: PLASMA No comment entered. Ordering Provider: GIULIA CHANG MD Report Released Date/Time: Jul 22, 2023 03:55 PM Reporting Lab: [place] [address] [place] [address] Performing Lab: [place] [address] [address] [place] [address] LDL CHOL CALCULATION 62 mg/dL 0-100 CHOLESTEROL 117 mg/dL 0-200 HDL CHOLESTEROL 42 mg/dL 40-180 TRIGLYCERIDE 67 mg/dL 0-150 CHOLESTEROL:HDL CHOL RATIO 2.8 DIRECT LDL canc mg/dL 0-100 Jul 29, 2023 11:15 AM [facility] URINALYSIS Specimen Type: URINE No comment entered. Ordering Provider: GIULIA CHANG MD Report Released Date/Time: Jul 22, 2023 03:55 PM Reporting Lab: [facility] [address] [place] [address] Performing Lab: [place] [address] [address] [place] [address] URINE COLOR Yellow See_Comment SPECIFIC GRAVITY 1.015 1.005-1.035 UROBILINOGEN NEG mg/dL NEG URINE BILIRUBIN NEG mg/dL NEG URINE KETONES NEG mg/dL NEG URINE GLUCOSE (UA) NEG mg/dL NEG URINE PROTEIN (UA) NEG mg/dL NEG URINE PH 5.0 5.0-9.0 APPEARANCE CLEAR CLEAR URINE BLOOD NEG NEG URINE NITRITE NEG NEG LEUKOCYTE EST (UA) NEG NEG Jul 29, 2023 11:15 AM [facility] HEMOGLOBIN A1C Specimen Type: BLOOD Comment: Values obtained from A1C measurements can vary. For typical A1C assays, a reported value of 7.0 could actually be between 6.72 and 7.28 if measured by a reference method. A reported value of 9.0 could actually be between 8.73 and 9.27. Ordering Provider: GIULIA CHANG MD Report Released Date/Time: Jul 22, 2023 03:55 PM Reporting Lab: [facility] [address] Performing Lab: [facility] [address] [place] [address] HEMOGLOBIN A1C 4.9 4.2-5.8 Jul 29, 2023 11:15 AM [facility] MAGNESIUM Specimen Type: PLASMA No comment entered. Ordering Provider: GIULIA CHANG MD Report Released Date/Time: Jul 22, 2023 03:55 PM Reporting Lab: [facility] [address] [place] [address] Performing Lab: [facility] [address] [place] [address] MAGNESIUM 1.7 mg/dL 1.5-2.6 Jul 29, 2023 11:15 AM [facility] IRON GROUP Specimen Type: PLASMA No comment entered. Ordering Provider: GIULIA CHANG MD Report Released Date/Time: Jul 22, 2023 03:55 PM Reporting Lab: [facility] [address] [place] [address] Performing Lab: [facility] [address] [place] [address] TRANSFERRIN 207 mg/dL 180-330 IRON 113 ug/dL 65-175 CALC. TRANSFERRIN SATURATION 44 15-50 FERRITIN (WPB) 147.69 ng/mL 10-380 Calc TIBC 259 ug/dL L 260-445 Jul 29, 2023 11:15 AM [facility] HEPATIC FUNCTION PANEL Specimen Type: PLASMA No comment entered. Ordering Provider: GIULIA CHANG MD Report Released Date/Time: Jul 22, 2023 03:55 PM Reporting Lab: [facility] [address] [place] [address] Performing Lab: [facility] [address] [place] [address] ALBUMIN 4.4 g/dL 3.4-5.2 ALKALINE PHOSPHATASE 62 U/L 40-150 ALT 19 U/L 0-55 AST 24 U/L 5-34 BILIRUBIN, TOTAL 0.7 mg/dL 0.2-1.2 DIRECT BILIRUBIN 0.3 mg/dL 0.0-0.5 PROTEIN, TOTAL 6.8 g/dL 6.2-8.5 A/G RATIO 1.8 0.8-2.0 Jul 29, 2023 11:15 AM [facility] BASIC METABOLIC PANEL Specimen Type: PLASMA No comment entered. Ordering Provider: GIULIA CHANG MD Report Released Date/Time: Jul 22, 2023 03:55 PM Reporting Lab: [place] [address] [facility] [address] Performing Lab: [place] [address] [facility] [address] UREA NITROGEN 22 mg/dL 6-22 CALCIUM 9.5 mg/dL 8.5-10.5 CREATININE, SERUM OR PLASMA 0.97 mg/dL 0.60-1.30 GLUCOSE 93 mg/dL 70-100 SODIUM (SERUM/PLASMA) 140 mmol/L 134-145 POTASSIUM 4.3 mmol/L 3.6-5.2 CHLORIDE 103 mmol/L 100-111 CO2 27 mmol/L 21-29 EGFRCr 79 mL/min >=90 Jul 29, 2023 11:15 AM [facility] PSA, FREE & TOT Specimen Type: SERUM No comment entered. Ordering Provider: GIULIA CHANG MD Report Released Date/Time: Jul 23, 2023 08:50 AM Reporting Lab: [place] [address] [facility] [address] Performing Lab: [address] [address] PSA-TOT <0.10 ng/mL 0.1-4.0 Advance Directives: All historical and current Section Date Range: From patient's date of to the date document was created. This section includes ALL of a patient's completed or amended [place] Advance and Rescinded Directives. The entries below indicate that a directive exists for the patient, but an actual copy is not included with this document. The data comes from all [place] facilities. Date Advance Directives Provider Source Jun 30, 2014 ADVANCE DIRECTIVE OBED [facility] Encounter Notes: All associated encounter notes This section contains the clinical notes associated to the Encounter. Date/Time Encounter Note(s) Provider Source Jul 02, 2023 05:57 PM TELEPHONE ENCOUNTE R NOTE: LOCAL TITLE: V1 PHARMACY CUSTOMER CARE MEDICATION RENEWAL STANDARD TITLE: TELEPHONE ENCOUNTER NOTE DATE OF NOTE: JUL 02, 2023@17:57 ENTRY DATE: JUL 02, 2023@17:57:33 AUTHOR: RIGO SEGAL COSIGNER: URGENCY: STATUS: COMPLETED Date: Jun Division: [place] Pt referred by Pharmacy Call Center for medication renewal: Non-controlled/maintenance medication Medications requested: [id number] 80MG/ML AUTO INJECTOR Defer to specialty clinic To be mailed . Please review and renew if appropriate. *This note was generated by [facility] Pharmacy Customer Care. If you have any questions or need assistance, do not contact this author. Please refer all questions to your local, on-site pharmacy departments. /bhavesh/ RIGO SEGAL CPhT Oceanography Teacher, MS/Pharmacy Customer Care Signed: 07/02/2023 17:57 Receipt Acknowledged By: 07/07/2023 09:46 /bhavesh/ Suri Squires, MSN, FRONT END SPECIALIST Nurse Practitioner, Rheumatology RIGO SEGAL [facility]
--- OUTSIDE RECORDS SUMMARY | 2024-04-08 14:43 | XMS_ITS | Encounter Summary ---
Author Name [facility] [place] Organization [facility] [place] Address [address] [place] [address] Care Team Providers Care Mobile Application Architect Name Role Phone CORETTA REY Primary Care [...] Guzman CIGNA INCOME PROTECTIO N (INDEMNIT Y) [facility] Apr 14, 2010 [id number] [facility] [phone] MAYUR,ELOISE HARD PATIENT CIGNA MEDICAL EXPENSE (OPT/PROF ) [facility] Mar 14, 2010 [id number] [facility] BLOHM,ELOISE HARD PATIENT CIGNA BEHAVIORAL HEALTH MENTAL HEALTH [facility] Mar 14, 2010 [id number] [facility] WHITNEYHM,ELOISE HARD PATIENT MEDICARE (WNR) MEDICARE (M) PART B Sep 14, 2007 PART B [id number] WHITNEYHM,ELOISE HARD PATIENT MEDICARE (WNR) MEDICARE (M) PART A Sep 14, 2007 PART A [id number] BLOHM,ELOISE HARD PATIENT MEDICARE (WNR) MEDICARE (M) PART A Sep 14, 2007 PART A [id number] BLOHM,ELOISE HARD PATIENT MEDICARE (WNR) MEDICARE (M) PART B Sep 14, 2007 PART B [id number] BLOHM,ELOISE HARD PATIENT MEDICARE (WNR) MEDICARE (M) PART A Sep 14, 2007 PART A [id number] BLOHM,ELOISE HARD PATIENT MEDICARE (WNR) MEDICARE (M) PART B Sep 14, 2007 PART B [id number] BLOHM,ELOISE HARD PATIENT MEDICARE PART D (WNR) MEDICARE (M) PART D Sep 14, 2012 PART D [id number] BLOHM,ELOISE HARD PATIENT OPTIMUM CHOICE POINT OF SERVICE [facility] Aug 14, 1998 [id number] [phone] BLOHM,ELOISE HARD PATIENT Selected Encounter This section includes the information on record at [place] for the Encounter. Date/Time Encounter Type Encounter Description Reason Provider Source Jun 30, 2023 11:30 AM REMOVE IMPACTED EAR WAX UNI AUDIOLOGY ICD-10-CM Z46.1 Encounter for fitting and adjustment of hearing aid [facility] Encounter Template Text not used by [place] Assessments - Encounter Diagnoses This section includes the primary and secondary diagnoses documented for the Encounter. Date/Time Primary/Secondary Diagnosis Diagnosis Name Provider Source Jun 30, 2023 11:17 AM PRIMARY Encounter for fitting and adjustment of hearing aid [facility] Jun 30, 2023 11:17 AM SECONDARY Impacted cerumen, bilateral TADEO SHIELDS [facility] Jun 30, 2023 11:17 AM SECONDARY Sensorineural hearing loss, bilateral TADEO SHIELDS [facility] Plan of Treatment: Future Appointments (+ [...] 20 appointments. The data comes from all [facility]. Appointment Date/Time Appointment Type Appointme nt Facility Name Jul 29, 2023 11:00 AM AMBULATORY - NONE [facility] Aug 07, 2023 09:15 AM AMBULATORY - MEDICINE [facility] Active, Pending, and Scheduled Orders This section includes a listing of several types of active, pending, and scheduled orders, including clinic medications orders, diagnostic test orders, procedure orders and consult orders; where the start date of the order is 45 days before the date of the Encounter or 45 days after the date of theEncounter. The data comes from all [facility]. Test Date/Time Test Type Test Details Facility Name Jul 22, 2023 12:00 AM Laboratory - Chemistry Order FECAL LACTOFERRIN STOOL [facility] Jul 22, 2023 12:00 AM Laboratory - Microbiology Order FECAL FAT, QUALITATIVE STOOL [facility] Jul 22, 2023 12:00 AM Laboratory - Microbiology Order YERSINIA CULTURE STOOL [facility] Jul 22, 2023 03:55 PM Laboratory - Chemistry Order GASTROINTESTINAL (GI) PANEL BIOFIRE STOOL [facility] Jul 22, 2023 03:55 PM Laboratory - Chemistry Order LAB C DIFF PANEL STOOL [facility]EC[facility] Jul 22, 2023 03:55 PM Laboratory - Microbiology Order O&P (STOOL) STOOL FECES [facility] Jul 23, 2023 05:00 AM Laboratory - Chemistry Order FERRITIN (WPB) BLOOD (LIGHT-GREEN PST) PLASMA [facility] Jul 23, 2023 03:55 PM Laboratory - Microbiology Order O&P (STOOL) STOOL [facility]ECES [facility] Jul 29, 2023 12:00 AM Laboratory - Chemistry Order OSMOLALITY, FECES STOOL [facility] Jul 29, 2023 12:00 AM Laboratory - Chemistry Order CALPROTECTIN, STOOL STOOL STERILE/NO PRESERVATIVE [facility] Jul 29, 2023 12:00 AM Laboratory - Chemistry Order GIARDIA ANTIGEN DETECTION STOOL [facility] Lab Results: +/- 30 days of the encounter This section includes the Chemistry and Hematology Lab Results on record with [place] for the patient. Radiology Reports and Pathology Reports are provided separately, in subsequent sections. Lab Results This section contains the Chemistry/Hematology Results that were resulted 30 days before or 30 daysafter the date of the Encounter. Date/Time Source Result Type Result - Unit Interpretation Reference Range Comment Jul 29, 2023 11:15 AM [facility] TRYPTASE Specimen Type: SERUM Comment: REFERENCE RANGE: <11.0 mcg/L The Tryptase test, fluorescent enzyme immunoassay (FEIA), measures both the Alpha and Beta forms of Tryptase. Measuring both forms of Tryptase increases sensitivity for the diagnosis of mastocytosis, and mast cell degranulation as a cause of anaphylaxis. Test Performed by Shaye Lazaro, [employer], [address] [place], [place] Gui Blakely M.D., Ph.D., Director of Laboratories , CLIA [id number] Ordering Provider: GIULIA CHANG MD Report Released Date/Time: Jul 22, 2023 03:55 PM Reporting Lab: [facility] [address] [facility] [place] [address] Performing Lab: [address] [place] TRYPTASE 11.3 ug/L H SEE BELOW Jul 29, 2023 11:15 AM [facility] CELIAC DISEASE COMPREHENSIVE PANEL Specimen Type: SERUM [...] 15.0 Antibody detected SERUM IGA:Test Performed by [employer], SERUM IGA:[employer], SERUM IGA:[address] [place], [place] SERUM IGA:Gui Blakely M.D., Ph.D., Director of Laboratories SERUM IGA: , CLIA [id number] Ordering Provider: GIULIA CHANG MD Report Released Date/Time: Jul 22, 2023 03:55 PM Reporting Lab: [facility] [address] [facility] [facility] [address] Performing Lab: [facility] [address] [place] IGA, SERUM QUEST 262 mg/dL 70-320 TISSUE TRANSGLUT IgA Ab <1.0 SEE BELOW INTERPRETATION SEE NOTE Jul 29, 2023 11:15 AM [facility] CEA Specimen Type: SERUM No comment entered. Ordering Provider: GIULIA CHANG MD Report Released Date/Time: Jul 22, 2023 03:55 PM Reporting Lab: [facility] [address] [facility] [address] Performing Lab: [facility] [address] [facility] [address] CEA 1.98 ng/mL 0.0-5.0 Jul 29, 2023 11:15 AM [facility] Vitamin B12 & Folate Specimen Type: SERUM No comment entered. Ordering Provider: GIULIA CHANG MD Report Released Date/Time: Jul 22, 2023 03:55 PM Reporting Lab: [facility] [address] [facility] [address] Performing Lab: [facility] [address] [facility] [address] Vitamin B-12 >2000 pg/mL H 210-900 FOLATE SERUM/PLASMA >20.0 ng/mL 7-20 Jul 29, 2023 11:15 AM [facility] SED RATE Specimen Type: BLOOD No comment entered. Ordering Provider: GIULIA CHANG MD Report Released Date/Time: Jul 22, 2023 03:55 PM Reporting Lab: [facility] [address] [facility] [address] Performing Lab: [facility] [address] [facility] [address] SED RATE 6 mm/h 0-20 Jul 29, 2023 11:15 AM [facility] CBC Specimen Type: BLOOD No comment entered. Ordering Provider: GIULIA CHANG MD Report Released Date/Time: Jul 22, 2023 03:55 PM Reporting Lab: [facility] [address] [facility] [address] Performing Lab: [place] [address] [facility] [address] WBC 9.7 10*3/uL 4.0-11.0 RBC 4.52 10*6/uL 4.4-5.9 HGB 14.9 g/dL 13.4-17.5 HEMATOCRIT 42.8 40-52 MCV 94.7 fL 82-98 MCH 32.9 pg 27.0-33.0 MCHC 34.7 g/dL 32.0-36.0 PLT 206 10*3/uL 140-400 RDW-CV 12.7 11.5-14.5 MPV 8.5 fL 6.6-10.6 Jul 29, 2023 11:15 AM [facility] C REACTIVE PROTEIN (NON-CARDIAC) Specimen Type: SERUM No comment entered. Ordering Provider: GIULIA CHANG MD Report Released Date/Time: Jul 22, 2023 03:55 PM Reporting Lab: [place] [address] Performing Lab: [place] [address] C REACTIVE PROTEIN (NON-CARDIAC) 0.09 mg/dL 0.00-0.50 Jul 29, 2023 11:15 AM [facility] DIFF COUNT (BLOOD) Specimen Type: BLOOD No comment entered. Ordering Provider: GIULIA CHANG MD Report Released Date/Time: Jul 22, 2023 03:55 PM Reporting Lab: [address] Performing Lab: [address] NEUTROPHILS % 61.2 40-77 LYMPHOCYTE % 24.6 14-45 BASOPHILS % 0.8 0-2 MONOCYTE % 8.0 2-14 EOSINOPHILS % 5.4 0-7 LYMPHOCYTE # 2.4 10*3/uL 1.0-4.8 MONOCYTE # 0.8 10*3/uL 0.2-1.0 EOSINOPHIL # 0.5 10*3/uL 0.0-0.5 BASOPHILS # 0.1 10*3/uL 0-0.2 NEUTROPHIL # 5.9 10*3/uL 1.8-7.8 DIFTYPE AUTO Jul 29, 2023 11:15 AM [facility] LIPID PROFILE Specimen Type: PLASMA No comment entered. Ordering Provider: GIULIA CHANG MD Report Released Date/Time: Jul 22, 2023 03:55 PM Reporting Lab: [facility] [address] [place] [phone] Performing Lab: [facility] [address] LDL CHOL CALCULATION 62 mg/dL 0-100 CHOLESTEROL 117 mg/dL 0-200 HDL CHOLESTEROL 42 mg/dL 40-180 TRIGLYCERIDE 67 mg/dL 0-150 CHOLESTEROL:HDL CHOL RATIO 2.8 DIRECT LDL canc mg/dL 0-100 Jul 29, 2023 11:15 AM [facility] URIC ACID Specimen Type: PLASMA No comment entered. Ordering Provider: GIULIA CHANG MD Report Released Date/Time: Jul 22, 2023 03:55 PM Reporting Lab: [facility] [address] [place] [phone] Performing Lab: [facility] [address] [place] [address] URIC ACID 8.3 mg/dL H 3.5-7.2 Jul 29, 2023 11:15 AM [facility] URINALYSIS Specimen Type: URINE No comment entered. Ordering Provider: GIULIA CHANG MD Report Released Date/Time: Jul 22, 2023 03:55 PM Reporting Lab: [facility] [address] [place] [phone] Performing Lab: [facility] [address] [place] [address] URINE COLOR Yellow See_Comment SPECIFIC GRAVITY 1.015 1.005-1.035 UROBILINOGEN NEG mg/dL NEG URINE BILIRUBIN NEG mg/dL NEG URINE KETONES NEG mg/dL NEG URINE GLUCOSE (UA) NEG mg/dL NEG URINE PROTEIN (UA) NEG mg/dL NEG URINE PH 5.0 5.0-9.0 APPEARANCE CLEAR CLEAR URINE BLOOD NEG NEG URINE NITRITE NEG NEG LEUKOCYTE EST (UA) NEG NEG Jul 29, 2023 11:15 AM [facility] HEMOGLOBIN A1C Specimen Type: BLOOD Comment: Values obtained from A1C measurements can vary. For typical A1C assays, a reported value of 7.0 could actually be between 6.72 and 7.28 if measured by a reference method. A reported value of 9.0 could actually be between 8.73 and 9.27. Ordering Provider: GIULIA CHANG MD Report Released Date/Time: Jul 22, 2023 03:55 PM Reporting Lab: [facility] [address] Performing Lab: [facility] [address] [place] [address] HEMOGLOBIN A1C 4.9 4.2-5.8 Jul 29, 2023 11:15 AM [facility] MAGNESIUM Specimen Type: PLASMA No comment entered. Ordering Provider: GIULIA CHANG MD Report Released Date/Time: Jul 22, 2023 03:55 PM Reporting Lab: [facility] [address] [place] [address] Performing Lab: [facility] [address] [place] [address] MAGNESIUM 1.7 mg/dL 1.5-2.6 Jul 29, 2023 11:15 AM [facility] IRON GROUP Specimen Type: PLASMA No comment entered. Ordering Provider: GIULIA CHANG MD Report Released Date/Time: Jul 22, 2023 03:55 PM Reporting Lab: [facility] [address] [place] [address] Performing Lab: [facility] [address] [place] [address] TRANSFERRIN 207 mg/dL 180-330 IRON 113 ug/dL 65-175 CALC. TRANSFERRIN SATURATION 44 15-50 FERRITIN (WPB) 147.69 ng/mL 10-380 Calc TIBC 259 ug/dL L 260-445 Jul 29, 2023 11:15 AM [facility] THYROID PROFILE Specimen Type: PLASMA No comment entered. Ordering Provider: GIULIA CHANG MD Report Released Date/Time: Jul 22, 2023 03:55 PM Reporting Lab: [facility] [address] [place] [address] Performing Lab: [facility] [address] [place] [address] TSH 1.0260 u[IU]/mL 0.35-4.8 FREE THYROXINE 0.93 ng/dL 0.6-1.5 Jul 29, 2023 11:15 AM [facility] BASIC METABOLIC PANEL Specimen Type: PLASMA No comment entered. Ordering Provider: GIULIA CHANG MD Report Released Date/Time: Jul 22, 2023 03:55 PM Reporting Lab: [place] [address] [address] [facility] [address] Performing Lab: [place] [address] [address] [facility] [address] UREA NITROGEN 22 mg/dL 6-22 CALCIUM 9.5 mg/dL 8.5-10.5 CREATININE, SERUM OR PLASMA 0.97 mg/dL 0.60-1.30 GLUCOSE 93 mg/dL 70-100 SODIUM (SERUM/PLASMA) 140 mmol/L 134-145 POTASSIUM 4.3 mmol/L 3.6-5.2 CHLORIDE 103 mmol/L 100-111 CO2 27 mmol/L 21-29 EGFRCr 79 mL/min >=90 Jul 29, 2023 11:15 AM [facility] HEPATIC FUNCTION PANEL Specimen Type: PLASMA No comment entered. Ordering Provider: GIULIA CHANG MD Report Released Date/Time: Jul 22, 2023 03:55 PM Reporting Lab: [place] [address] [address] [facility] [address] Performing Lab: [place] [address] [address] [place] [address] ALBUMIN 4.4 g/dL 3.4-5.2 ALKALINE PHOSPHATASE 62 U/L 40-150 ALT 19 U/L 0-55 AST 24 U/L 5-34 BILIRUBIN, TOTAL 0.7 mg/dL 0.2-1.2 DIRECT BILIRUBIN 0.3 mg/dL 0.0-0.5 PROTEIN, TOTAL 6.8 g/dL 6.2-8.5 A/G RATIO 1.8 0.8-2.0 Jul 29, 2023 11:15 AM [facility] PSA, FREE & TOT Specimen Type: SERUM No comment entered. Ordering Provider: GIULIA CHANG MD Report Released Date/Time: Jul 23, 2023 08:50 AM Reporting Lab: [place] [address] [address] [facility] [address] Performing Lab: [place] [address] [address] [facility] [address] PSA-TOT <0.10 ng/mL 0.1-4.0 Advance Directives: All [...] this document. The data comes from all [place] facilities. Date Advance Directives Provider Source Jun 30, 2014 ADVANCE DIRECTIVE [facility] Encounter Notes: All associated encounter notes This section contains the clinical notes associated to the Encounter. Date/Time Encounter Note(s) Provider Source Jun 30, 2023 11:12 AM AUDIOLOGY NOTE: LOCAL TITLE: AUDIOLOGY HEARING AID CLINIC STANDARD TITLE: AUDIOLOGY NOTE DATE OF NOTE: JUN 30, 2023@11:12 ENTRY DATE: JUN 30, 2023@11:12:38 AUTHOR: JOHN MASCORRO COSIGNER: JESSICA SHIELDS URGENCY: STATUS: COMPLETED AUDIOLOGY HEARING AID CLINIC Has ADDENDA seen in [facility] Audiology Triage Clinic in regards to: AUTHORIZED HEARING INSTRUMENTS: 12/04/21 SONOVA PHONAK REMOTECONTROL [id number] N/A 548GC [facility] 12/04/21 SONOVA PHONAK AUDEO P90-R ELOISE [id number] R 548GC [facility] 12/04/21 SONOVA PHONAK AUDEO P90-R ELOISE [id number] L 548[facility] 12/04/21 SONOVA TV CONNECTOR 1.1 [id number] N/A [facility] JATINDER: Settings verified PURPOSE OF VISIT/CHIEF COMPLAINT{s}: 1} Vet came in requesting a hearing aid clean/check & wax removal. -OTOSCOPIC INSPECTION revealed minimal cerumen in Right ear canal and fully occluded Left ear canal. RESOLUTION: - Both devices cleaned; all ports suctioned and wax filters replaced. - Listening check indicated proper function of devices. - Hearing aids returned to vet. - Vet referred to Paintings Conservator for wax removal. PLAN/FOLLOW-UP: Vet advised to utilize the [facility] Hearing Aid Triage Clinic as needed. Supervising Paintings Conservator available on site for consultation. /joshua [facility]WIN[facility] Transfer Coordinator Signed: 06/30/2023 11:17 /Mu Gatica Paintings Conservator Cosigned: 06/30/2023 11:32 06/30/2023 ADDENDUM STATUS: COMPLETED Sterling referred by electroencephalograph technician for cerumen impaction, left ear. Otoscopy reveals cerumen impaction for the left ear, minor some cerumen present in the right ear. With veterans permission, lighted curette is used to remove same from each ear. Both ear canals were clear postprocedure and free of irritation/abrasion. asked about cleaning the vents on hearing aids. He is is provided with vent tools, and instructions for use of same. Plan: Sterling will return in the spring to have ears checked. He understands he can return to triage at his convenience for additional problems. /Mu Gatica Paintings Conservator Signed: 06/30/2023 11:31 [facility]
--- OUTSIDE RECORDS SUMMARY | 2024-04-08 14:43 | XMS_ITS | Encounter Summary ---
Author Name [facility] [place] Address [address] [place] [address] Care Team Providers Care Roller Machine Operator Name Role Phone CORETTA REY Primary Care [...] Guzman CIGNA INCOME PROTECTIO N (INDEMNIT Y) LOCAL [facility] Apr 14, 2010 [id number] [facility] [phone] BLOHM,ELOISE HARD PATIENT CIGNA MEDICAL EXPENSE (OPT/PROF ) [facility] Mar 14, 2010 [id number] [facility] BLOHM,ELOISE HARD PATIENT CIGNA BEHAVIORAL HEALTH MENTAL HEALTH LOCAL [facility] Mar 14, 2010 [id number] [facility] [phone] BLOHM,ELOISE HARD PATIENT MEDICARE (WNR) MEDICARE (M) PART B Sep 14, 2007 PART B [id number] BLOHM,ELOISE HARD PATIENT MEDICARE (WNR) MEDICARE (M) PART A Sep 14, 2007 PART A [id number] [id number] BLOHM,ELOISE HARD PATIENT MEDICARE (WNR) MEDICARE (M) PART B Sep 14, 2007 PART B [id number] BLOHM,ELOISE HARD PATIENT MEDICARE (WNR) MEDICARE (M) PART A Sep 14, 2007 PART A [id number] [phone] BLOHM,ELOISE HARD PATIENT MEDICARE (WNR) MEDICARE (M) PART A Sep 14, 2007 PART A [id number] BLOHM,ELOISE HARD PATIENT MEDICARE (WNR) MEDICARE (M) PART B Sep 14, 2007 PART B [id number] [phone] BLOHM,ELOISE HARD PATIENT MEDICARE PART D (WNR) MEDICARE (M) PART D Sep 14, 2012 PART D [id number] BLOHM,ELOISE HARD PATIENT OPTIMUM CHOICE POINT OF SERVICE [facility] Aug 14, 1998 [id number] [phone] BLOHM,ELOISE HARD PATIENT Selected Encounter This section includes the information on record at [place] for the Encounter. Date/Time Encounter Type Encounter Description Reason Pro vider Source Jul 28, 2023 04:06 PM CASE MANAGEMENT ADMIN [facility] ISAIAH GALARZA Encounter Template Text not used by [place] Plan of Treatment: Future Appointments (+ 6 months) and Future Tests (+/- 45 days) The Plan of Treatment section includes future care activities for the patient from all [place] treatmentfacilities. This section includes future appointments and future orders which are active, pending or scheduled. Future Appointments This section includes appointments that were scheduled to occur 6 months from the date of the Encounter, up to a maximum of 20 appointments. The data comes from all [place] treatment facilities. Appointment Date/Time Appointment Type Appointme nt Facility Name Jul 29, 2023 11:00 AM [facility]ORY - NONE [facility] Aug 07, 2023 09:15 AM AMBULATORY - MEDICINE [facility] Active, Pending, and Scheduled Orders This section includes a listing of several types of active, pending, and scheduled orders, including clinic medications orders, diagnostic test orders, procedure orders and consult orders; where the start date of the order is 45 days before the date of the Encounter or 45 days after the date of theEncounter. The data comes from all [facility]. Test Date/Time Test Type Test Details Facility Name Jul 22, 2023 12:00 AM Laboratory - Chemistry Order FECAL LACTOFERRIN STOOL [facility] Jul 22, 2023 12:00 AM Laboratory - Microbiology Order FECAL FAT, QUALITATIVE STOOL [facility] Jul 22, 2023 12:00 AM Laboratory - Microbiology Order YERSINIA CULTURE STOOL [facility] Jul 22, 2023 03:55 PM Laboratory - Chemistry Order GASTROINTESTINAL (GI) PANEL BIOFIRE STOOL [facility] Jul 22, 2023 03:55 PM Laboratory - Chemistry Order LAB C DIFF PANEL STOOL [facility]EC[facility] Jul 22, 2023 03:55 PM Laboratory - Microbiology Order O&P (STOOL) STOOL [facility] Jul 23, 2023 05:00 AM Laboratory - Chemistry Order FERRITIN (WPB) BLOOD (LIGHT-GREEN PST) PLASMA [facility] Jul 23, 2023 03:55 PM Laboratory - Microbiology Order O&P (STOOL) STOOL [facility] Jul 29, 2023 12:00 AM Laboratory - Chemistry Order GIARDIA ANTIGEN DETECTION STOOL [facility] Jul 29, 2023 12:00 AM Laboratory - Chemistry Order OSMOLALITY, FECES STOOL [facility]EC[facility] Jul 29, 2023 12:00 AM Laboratory - Chemistry Order CALPROTECTIN, STOOL STOOL STERILE/NO PRESERVATIVE [facility] Lab Results: +/- 30 days of the encounter This section includes the Chemistry and Hematology Lab Results on record with [place] for the patient. Radiology Reports and Pathology Reports are provided separately, in subsequent sections. Lab Results This section contains the Chemistry/Hematology Results that were resulted 30 days before or 30 daysafter the date of the Encounter. Date/Time Source Result Type Result - Unit Interpretation Reference Range Comment Aug 04, 2023 12:59 PM [facility] OCCULT BLOOD FITX1 SCREEN Specimen Type: FECES No comment entered. Ordering Provider: GIULIA CHANG MD Report Released Date/Time: Jul 22, 2023 03:55 PM Reporting Lab: [facility] [address] [facility] [address] Performing Lab: [facility] [address] [place] [id number] OCCULT BLOOD (FIT) #1 OF 1 Negative Negative Jul 29, 2023 11:15 AM [facility] TRYPTASE Specimen Type: SERUM Comment: REFERENCE RANGE: <11.0 mcg/L The Tryptase test, fluorescent enzyme immunoassay (FEIA), measures both the Alpha and Beta forms of Tryptase. Measuring both forms of Tryptase increases sensitivity for the diagnosis of mastocytosis, and mast cell degranulation as a cause of anaphylaxis. Test Performed by Shaye Lazaro, [email or web address], [id number] [place], [place] Gui Blakely M.D., Ph.D., Director of Laboratories , CLIA [id number] Ordering Provider: GIULIA CHANG MD Report Released Date/Time: Jul 22, 2023 03:55 PM Reporting Lab: [address] [address] Performing Lab: [address] TRYPTASE 11.3 ug/L H SEE BELOW Jul 29, 2023 11:15 AM [facility] CELIAC DISEASE COMPREHENSIVE PANEL Specimen Type: SERUM [...] 15.0 Antibody detected SERUM IGA:Test Performed by [employer], SERUM IGA:[email or web address], SERUM IGA:[id number] [place], [place] SERUM IGA:Gui Blakely M.D., Ph.D., Director of Laboratories SERUM IGA: , CLIA [id number] Ordering Provider: GIULIA CHANG MD Report Released Date/Time: Jul 22, 2023 03:55 PM Reporting Lab: [place] [address] [facility] [address] Performing Lab: [facility] [address] [address] [place] IGA, SERUM QUEST 262 mg/dL 70-320 TISSUE TRANSGLUT IgA Ab <1.0 SEE BELOW INTERPRETATION SEE NOTE Jul 29, 2023 11:15 AM [facility] CEA Specimen Type: SERUM No comment entered. Ordering Provider: GIULIA CHANG MD Report Released Date/Time: Jul 22, 2023 03:55 PM Reporting Lab: [facility] [address] [facility] [address] Performing Lab: [facility] [address] [facility] [address] CEA 1.98 ng/mL 0.0-5.0 Jul 29, 2023 11:15 AM [facility] Vitamin B12 & Folate Specimen Type: SERUM No comment entered. Ordering Provider: GIULIA CHANG MD Report Released Date/Time: Jul 22, 2023 03:55 PM Reporting Lab: [facility] [address] [facility] [address] Performing Lab: [facility] [address] [place] [id number] Vitamin B-12 >2000 pg/mL H 210-900 FOLATE SERUM/PLASMA >20.0 ng/mL 7-20 Jul 29, 2023 11:15 AM [facility] DIFF COUNT (BLOOD) Specimen Type: BLOOD No comment entered. Ordering Provider: GIULIA CHANG MD Report Released Date/Time: Jul 22, 2023 03:55 PM Reporting Lab: [facility] [address] [facility] [address] Performing Lab: [facility] [address] [facility] [address] NEUTROPHILS % 61.2 40-77 LYMPHOCYTE % 24.6 14-45 BASOPHILS % 0.8 0-2 MONOCYTE % 8.0 2-14 EOSINOPHILS % 5.4 0-7 LYMPHOCYTE # 2.4 10*3/uL 1.0-4.8 MONOCYTE # 0.8 10*3/uL 0.2-1.0 EOSINOPHIL # 0.5 10*3/uL 0.0-0.5 BASOPHILS # 0.1 10*3/uL 0-0.2 NEUTROPHIL # 5.9 10*3/uL 1.8-7.8 DIFTYPE AUTO Jul 29, 2023 11:15 AM [facility] SED RATE Specimen Type: BLOOD No comment entered. Ordering Provider: GIULIA CHANG MD Report Released Date/Time: Jul 22, 2023 03:55 PM Reporting Lab: [facility] [address] Performing Lab: [facility] [address] [place] [address] SED RATE 6 mm/h 0-20 Jul 29, 2023 11:15 AM [facility] C REACTIVE PROTEIN (NON-CARDIAC) Specimen Type: SERUM No comment entered. Ordering Provider: GIULIA CHANG MD Report Released Date/Time: Jul 22, 2023 03:55 PM Reporting Lab: [facility] [address] Performing Lab: [place] [address] [address] [place] [address] C REACTIVE PROTEIN (NON-CARDIAC) 0.09 mg/dL 0.00-0.50 Jul 29, 2023 11:15 AM [facility] CBC Specimen Type: BLOOD No comment entered. Ordering Provider: GIULIA CHANG MD Report Released Date/Time: Jul 22, 2023 03:55 PM Reporting Lab: [facility] [address] Performing Lab: [facility] [address] WBC 9.7 10*3/uL 4.0-11.0 RBC 4.52 10*6/uL 4.4-5.9 HGB 14.9 g/dL 13.4-17.5 HEMATOCRIT 42.8 40-52 MCV 94.7 fL 82-98 MCH 32.9 pg 27.0-33.0 MCHC 34.7 g/dL 32.0-36.0 PLT 206 10*3/uL 140-400 RDW-CV 12.7 11.5-14.5 MPV 8.5 fL 6.6-10.6 Jul 29, 2023 11:15 AM [facility] URIC ACID Specimen Type: PLASMA No comment entered. Ordering Provider: GIULIA CHANG MD Report Released Date/Time: Jul 22, 2023 03:55 PM Reporting Lab: [facility] [address] [place] [address] Performing Lab: [facility] [address] [place] [address] URIC ACID 8.3 mg/dL H 3.5-7.2 Jul 29, 2023 11:15 AM [facility] LIPID PROFILE Specimen Type: PLASMA No comment entered. Ordering Provider: GIULIA CHANG MD Report Released Date/Time: Jul 22, 2023 03:55 PM Reporting Lab: [facility] [address] [place] [address] Performing Lab: [facility] [address] [place] [address] LDL CHOL CALCULATION 62 mg/dL 0-100 CHOLESTEROL 117 mg/dL 0-200 HDL CHOLESTEROL 42 mg/dL 40-180 TRIGLYCERIDE 67 mg/dL 0-150 CHOLESTEROL:HDL CHOL RATIO 2.8 DIRECT LDL canc mg/dL 0-100 Jul 29, 2023 11:15 AM [facility] URINALYSIS Specimen Type: URINE No comment entered. Ordering Provider: GIULIA CHANG MD Report Released Date/Time: Jul 22, 2023 03:55 PM Reporting Lab: [facility] [address] [place] [address] Performing Lab: [facility] [address] [place] [address] URINE COLOR Yellow See_Comment SPECIFIC GRAVITY 1.015 1.005-1.035 UROBILINOGEN NEG mg/dL NEG URINE BILIRUBIN NEG mg/dL NEG URINE KETONES NEG mg/dL NEG URINE GLUCOSE (UA) NEG mg/dL NEG URINE PROTEIN (UA) NEG mg/dL NEG URINE PH 5.0 5.0-9.0 APPEARANCE CLEAR CLEAR URINE BLOOD NEG NEG URINE NITRITE NEG NEG LEUKOCYTE EST (UA) NEG NEG Jul 29, 2023 11:15 AM [facility] HEMOGLOBIN A1C Specimen Type: BLOOD Comment: Values obtained from A1C measurements can vary. For typical A1C assays, a reported value of 7.0 could actually be between 6.72 and 7.28 if measured by a reference method. A reported value of 9.0 could actually be between 8.73 and 9.27. Ordering Provider: GIULIA CHANG MD Report Released Date/Time: Jul 22, 2023 03:55 PM Reporting Lab: [facility] [address] [facility] [address] Performing Lab: [facility] [address] [facility] [address] HEMOGLOBIN A1C 4.9 4.2-5.8 Jul 29, 2023 11:15 AM [facility] THYROID PROFILE Specimen Type: PLASMA No comment entered. Ordering Provider: GIULIA CHANG MD Report Released Date/Time: Jul 22, 2023 03:55 PM Reporting Lab: [facility] [address] [facility] [address] Performing Lab: [facility] [address] TSH 1.0260 u[IU]/mL 0.35-4.8 FREE THYROXINE 0.93 ng/dL 0.6-1.5 Jul 29, 2023 11:15 AM [facility] MAGNESIUM Specimen Type: PLASMA No comment entered. Ordering Provider: GIULIA CHANG MD Report Released Date/Time: Jul 22, 2023 03:55 PM Reporting Lab: [facility] [address] [facility] [address] Performing Lab: [facility] [address] MAGNESIUM 1.7 mg/dL 1.5-2.6 Jul 29, 2023 11:15 AM [facility] IRON GROUP Specimen Type: PLASMA No comment entered. Ordering Provider: GIULIA CHANG MD Report Released Date/Time: Jul 22, 2023 03:55 PM Reporting Lab: [facility] [address] [facility] [address] Performing Lab: [facility] [address] [facility] [address] TRANSFERRIN 207 mg/dL 180-330 IRON 113 ug/dL 65-175 CALC. TRANSFERRIN SATURATION 44 15-50 FERRITIN (WPB) 147.69 ng/mL 10-380 Calc TIBC 259 ug/dL L 260-445 Jul 29, 2023 11:15 AM [facility] PSA, FREE & TOT Specimen Type: SERUM No comment entered. Ordering Provider: GIULIA CHANG MD Report Released Date/Time: Jul 23, 2023 08:50 AM Reporting Lab: [place] [address] [facility] [address] Performing Lab: [place] [address] [place] [id number] PSA-TOT <0.10 ng/mL 0.1-4.0 Jul 29, 2023 11:15 AM [facility] BASIC METABOLIC PANEL Specimen Type: PLASMA No comment entered. Ordering Provider: GIULIA CHANG MD Report Released Date/Time: Jul 22, 2023 03:55 PM Reporting Lab: [place] [address] [facility] [address] Performing Lab: [place] [address] [place] [address] UREA NITROGEN 22 mg/dL 6-22 CALCIUM 9.5 mg/dL 8.5-10.5 CREATININE, SERUM OR PLASMA 0.97 mg/dL 0.60-1.30 GLUCOSE 93 mg/dL 70-100 SODIUM (SERUM/PLASMA) 140 mmol/L 134-145 POTASSIUM 4.3 mmol/L 3.6-5.2 CHLORIDE 103 mmol/L 100-111 CO2 27 mmol/L 21-29 EGFRCr 79 mL/min >=90 Jul 29, 2023 11:15 AM [facility] HEPATIC FUNCTION PANEL Specimen Type: PLASMA No comment entered. Ordering Provider: GIULIA CHANG MD Report Released Date/Time: Jul 22, 2023 03:55 PM Reporting Lab: [address] [facility] [address] Performing Lab: [place] [address] [place] [address] ALBUMIN 4.4 g/dL 3.4-5.2 ALKALINE PHOSPHATASE 62 [...] this document. The data comes from all [place] facilities. Date Advance Directives Provider Source Jun 30, 2014 ADVANCE DIRECTIVE CECILIOOBED HI JACOB T [facility] Encounter Notes: All associated encounter notes This section contains the clinical notes associated to the Encounter. Date/Time Encounter Note(s) Provider Source Jul 28, 2023 04:06 PM CARE MANAGEMENT CO NSULT: LOCAL TITLE: TRAVELING CONSULT STANDARD TITLE: CARE MANAGEMENT CONSULT DATE OF NOTE: JUL 28, 2023@16:06 ENTRY DATE: JUL 28, 2023@16:06:31 AUTHOR: ISAIAH GALARZA EXP COSIGNER: URGENCY: STATUS: COMPLETED W[facility] TVC received Traveling/Relocating Interfacility Consult request from [facility] for care coordination. is now scheduled for request and care coordination is complete. WPB TVCs will monitor for results. See TVC consult for full information* Note placed for non-count clinic encounter purposes only. Future Appointments: Date Time Clinic 07/29/2023 11:00 [facility] /es/ ISAIAH GALARZA TRAVELING COORDINATOR Signed: 07/28/2023 16:06 ISAIAH GALARZA [facility]
--- OUTSIDE RECORDS SUMMARY | 2024-04-08 14:43 | XMS_ITS | Encounter Summary ---
Author Name [place] Organization [place] Address [address] [place] [address] Care Team Providers Care Burrer Marker Axle Name Role Phone CORETTA REY Primary Care [...] Guzman CIGNA INCOME PROTECTIO N (INDEMNIT Y) [facility] Apr 14, 2010 [id number] [facility] [phone] MAYUR,ELOISE HARD PATIENT CIGNA MEDICAL EXPENSE (OPT/PROF ) [facility] Mar 14, 2010 [id number] [facility] BLOHM,ELOSIE HARD PATIENT CIGNA BEHAVIORAL HEALTH MENTAL HEALTH [facility] Mar 14, 2010 [id number] [facility] BLOHM,ELOISE HARD PATIENT MEDICARE (WNR) MEDICARE (M) PART B Sep 14, 2007 PART B [id number] BLOHM,ELOISE HARD PATIENT MEDICARE (WNR) MEDICARE (M) PART A Sep 14, 2007 PART A [id number] [id number] BLOHM,ELOISE HARD PATIENT MEDICARE (WNR) MEDICARE (M) PART A Sep 14, 2007 PART A [id number] BLOHM,ELOISE HARD PATIENT MEDICARE (WNR) MEDICARE (M) PART B Sep 14, 2007 PART B [id number] BLOHM,ELOISE HARD PATIENT MEDICARE (WNR) MEDICARE (M) PART A Sep 14, 2007 PART A [id number] BLOHM,ELOISE HARD PATIENT MEDICARE (WNR) MEDICARE (M) PART B Sep 14, 2007 PART B [id number] BLOHM,ELOISE HARD PATIENT MEDICARE PART D (WNR) MEDICARE (M) PART D Sep 14, 2012 PART D [id number] BLOHM,ELOISE HARD PATIENT OPTIMUM CHOICE POINT OF SERVICE [facility] Aug 14, 1998 [id number] [phone] BLOHM,ELOISE HARD PATIENT Selected Encounter This section includes the information on record at [place] for the Encounter. Date/Time Encounter Type Encounter Description Reason Pro vider Source Oct 21, 2023 09:17 AM Outpatient Encounter ADMIN PAT ACTIVTIES ([facility]) [facility] Encounter Template Text not used by [place] Plan of Treatment: Future Appointments (+ 6 months) and Future Tests (+/- 45 days) The Plan of Treatment section includes future care activities for the patient from all [place] treatmentfacilities. This section includes future appointments and future orders which are active, pending or scheduled. Future Appointments This section includes appointments that were scheduled to occur 6 months from the date of the Encounter, up to a maximum of 20 appointments. The data comes from all [place] treatment facilities. Appointment Date/Time Appointment Type Appointme nt Facility Name Feb 26, 2024 09:45 AM AMBULATORY - MEDICINE [facility] Aidan PAIZ [facility] Active, Pending, and Scheduled Orders This section includes a listing of several types of active, pending, and scheduled orders, including clinic medications orders, diagnostic test orders, procedure orders and consult orders; where the start date of the order is 45 days before the date of the Encounter or 45 days after the date of theEncounter. The data comes from all [facility]. Test Date/Time Test Type Test Details Facility Name Sep 24, 2023 12:00 AM Laboratory - Chemi stry Order CBC BLOOD (LAVENDER-BLOOD) [facility] Sep 24, 2023 12:00 AM Laboratory - Chemi stry Order BASIC METABOLIC PANEL BLOOD (LIGHT-GREEN PST) PLASMA [facility] Sep 24, 2023 12:00 AM Laboratory - Chemi stry Order DIFF COUNT (BLOOD) BLOOD (LAVENDER-BLOOD) [facility] Sep 24, 2023 12:00 AM Laboratory - Chemi stry Order LIPID PROFILE BLOOD (LIGHT-GREEN PST) PLASMA [facility] Sep 24, 2023 12:00 AM Laboratory - Chemi stry Order HEPATIC FUNCTION PANEL BLOOD (LIGHT-GREEN PST) PLASMA [facility] Sep 24, 2023 12:00 AM Laboratory - Chemi stry Order THYROID PROFILE BLOOD (LIGHT-GREEN PST) PLASMA [facility] Sep 24, 2023 12:00 AM Laboratory - Chemi stry Order PSA, FREE & TOT BLOOD (GOLD-SST) SERUM [facility] Sep 24, 2023 12:00 AM Laboratory - Chemi stry Order HEMOGLOBIN A1C BLOOD (LAVENDER-BLOOD) [facility] Sep 24, 2023 12:00 AM Laboratory - Chemi stry Order MICROALBUMIN/CREATININE PANEL URINE (RANDOM) [facility] Sep 24, 2023 12:00 AM Laboratory - Chemi stry Order VITAMIN D, 25-OH, TOTAL BLOOD (GOLD-SST) SERUM [facility] Advance Directives: All historical and current Section Date Range: From patient's date of to the date document was created. This section includes ALL of a patient's completed or amended [place] Advance and Rescinded Directives. The entries below indicate that a directive exists for the patient, but an actual copy is not included with this document. The data comes from all [place] facilities. Date Advance Directives Provider Source Jun 30, 2014 [facility] Encounter Notes: All associated encounter notes This section contains the clinical notes associated to the Encounter. Date/Time Encounter Note(s) Provider Source Oct 21, 2023 09:17 AM LETTERS: LOCAL TITLE: LETTER TO PATIENT ATTEMPT TO CONTACT STANDARD TITLE: LETTERS DATE OF NOTE: OCT 21, 2023@09:17 ENTRY DATE: OCT 21, 2023@09:17:47 AUTHOR: CORETTA YBARRA COSIGNER: URGENCY: STATUS: COMPLETED LETTER TO PATIENT ATTEMPT TO CONTACT Has ADDENDA [facility] [address] [place] [address] OCT 21, 2023 RIGOBERTO MERCHANT [address] [place] [address] Dear RIGOBERTO MERCHANT, [facility] [place] is trying to reach you to schedule [...] date for you: Service: Rheumatology Service Direct: [phone] Ext: [phone] Toll Free: [phone] [phone] We look forward to hearing from you. Sincerely, Clinical Operations 10/21/2023 ADDENDUM STATUS: COMPLETED Called patient to schedule appt, LVM. Letter to call [facility] also sent. /bhavesh/ CORETTA YBARRA amsa Signed: 10/21/2023 09:21 CORETTA YBARRA [facility]
--- OUTSIDE RECORDS SUMMARY | 2024-04-08 14:43 | XMS_ITS | Encounter Summary ---
Author Name [facility] [facility] [place] Address [address] [place] [address] Care Team Providers Care Stenotypist Name Role Phone CORETTA REY Primary Care [...] CIGNA INCOME PROTECTIO N (INDEMNIT Y) [facility] Apr 14, 2010 [id number] [facility] BLOHM,ELOISE HARD PATIENT CIGNA MEDICAL EXPENSE (OPT/PROF ) [facility] Mar 14, 2010 [id number] [facility] [phone] BLOHM,ELOISE HARD PATIENT CIGNA BEHAVIORAL HEALTH MENTAL HEALTH LOCAL [facility] Mar 14, 2010 [id number] [facility] [phone] BLOHM,ELOISE HARD PATIENT MEDICARE (WNR) MEDICARE (M) PART B Sep 14, 2007 PART B [id number] [id number] BLOHM,ELOISE HARD PATIENT MEDICARE (WNR) MEDICARE (M) PART A Sep 14, 2007 PART A [id number] BLOHM,ELOISE HARD PATIENT MEDICARE (WNR) MEDICARE (M) PART B Sep 14, 2007 PART B [id number] BLOHM,ELOISE HARD PATIENT MEDICARE (WNR) MEDICARE (M) PART A Sep 14, 2007 PART A [id number] BLOHM,ELOISE HARD PATIENT MEDICARE (WNR) MEDICARE (M) PART A Sep 14, 2007 PART A [id number] BLOHM,ELOISE HARD PATIENT MEDICARE (WNR) MEDICARE (M) PART B Sep 14, 2007 PART B [id number] BLOHM,ELOISE HARD PATIENT MEDICARE PART D (WNR) MEDICARE (M) PART D Sep 14, 2012 PART D [id number] BLOHM,ELOISE HARD PATIENT OPTIMUM CHOICE POINT OF SERVICE [facility] Aug 14, 1998 [id number] [phone] BLOHM,ELOISE HARD PATIENT Selected Encounter This section includes the information on record at [place] for the Encounter. Date/Time Encounter Type Encounter Description Reason Pro vider Source Jul 30, 2023 03:14 PM CASE MANAGEMENT [facility]MIN [facility] Encounter Template Text not used by NE Plan of Treatment: Future Appointments (+ 6 months) and Future Tests (+/- 45 days) The Plan of Treatment section includes future care activities for the patient from all [place] treatmentfacilities. This section includes future appointments and future orders which are active, pending or scheduled. Future Appointments This section includes appointments that were scheduled to occur 6 months from the date of the Encounter, up to a maximum of 20 appointments. The data comes from all [place] treatment facilities. Appointment Date/Time Appointment Type Appointme nt Facility Name Aug 07, 2023 09:15 AM AMBULATORY - MEDICINE [facility] Active, Pending, and Scheduled Orders This section includes a listing of several types of active, pending, and scheduled orders, including clinic medications orders, diagnostic test orders, procedure orders and consult orders; where the start date of the order is 45 days before the date of the Encounter or 45 days after the date of theEncounter. The data comes from all [place] treatment facilities. Test Date/Time Test Type Test Details Facility Name Jul 22, 2023 12:00 AM Laboratory - Chemistry Order FECAL LACTOFERRIN STOOL [facility] Jul 22, 2023 12:00 AM Laboratory - Microbiology Order FECAL FAT, QUALITATIVE STOOL [facility] Jul 22, 2023 12:00 AM Laboratory - Microbiology Order YERSINIA CULTURE STOOL [facility] Jul 22, 2023 03:55 PM Laboratory - Chemistry Order GASTROINTESTINAL (GI) PANEL BIOFIRE STOOL [facility] Jul 22, 2023 03:55 PM Laboratory - Chemistry Order LAB C DIFF PANEL STOOL [facility] Jul 22, 2023 03:55 PM Laboratory - Microbiology Order O&P (STOOL) STOOL [facility] Jul 23, 2023 05:00 AM Laboratory - Chemistry Order FERRITIN (WPB) BLOOD (LIGHT-GREEN PST) PLASMA [facility] Jul 23, 2023 03:55 PM Laboratory - Microbiology Order O&P (STOOL) STOOL [facility] Jul 29, 2023 12:00 AM Laboratory - Chemistry Order GIARDIA ANTIGEN DETECTION STOOL [facility] Jul 29, 2023 12:00 AM Laboratory - Chemistry Order OSMOLALITY, FECES STOOL [facility] Jul 29, 2023 12:00 AM Laboratory - Chemistry Order CALPROTECTIN, STOOL STOOL STERILE/NO PRESERVATIVE [facility] Lab Results: +/- 30 days of the encounter This section includes the Chemistry and Hematology Lab Results on record with [place] for the patient. Radiology Reports and Pathology Reports are provided separately, in subsequent sections. Lab Results This section contains the Chemistry/Hematology Results that were resulted 30 days before or 30 daysafter the date of the Encounter. Date/Time Source Result Type Result - Unit Interpretation Reference Range Comment Aug 04, 2023 12:59 PM [facility] OCCULT BLOOD FITX1 SCREEN Specimen Type: FECES No comment entered. Ordering Provider: GIULIA CHANG MD Report Released Date/Time: Jul 22, 2023 03:55 PM Reporting Lab: [facility] [address] [facility] [address] Performing Lab: [facility] [address] [facility] [address] OCCULT BLOOD (FIT) #1 OF 1 Negative Negative Jul 29, 2023 11:15 AM [facility] TRYPTASE Specimen Type: SERUM Comment: REFERENCE RANGE: <11.0 mcg/L The Tryptase test, fluorescent enzyme immunoassay (FEIA), measures both the Alpha and Beta forms of Tryptase. Measuring both forms of Tryptase increases sensitivity for the diagnosis of mastocytosis, and mast cell degranulation as a cause of anaphylaxis. Test Performed by [facility], [employer] [place], [address] [place], [place] Gui Blakely M.D., Ph.D., Director of Laboratories , CLIA [id number] Ordering Provider: GIULIA CHANG MD Report Released Date/Time: Jul 22, 2023 03:55 PM Reporting Lab: [place] [address] [facility] [address] Performing Lab: [address] TRYPTASE 11.3 ug/L H SEE BELOW Jul 29, 2023 11:15 AM [facility] CELIAC DISEASE COMPREHENSIVE PANEL Specimen Type: SERUM [...] 15.0 Antibody detected SERUM IGA:Test Performed by [facility], SERUM IGA:[employer], SERUM IGA:[id number] [place], [place] SERUM IGA:Gui Blakely M.D., Ph.D., Director of Laboratories SERUM IGA: , CLIA [id number] Ordering Provider: GIULIA CHANG MD Report Released Date/Time: Jul 22, 2023 03:55 PM Reporting Lab: [facility] [address] [facility] [address] Performing Lab: [facility] [address] [place] I[place], SERUM QUEST 262 mg/dL 70-320 TISSUE TRANSGLUT IgA Ab <1.0 SEE BELOW INTERPRETATION SEE NOTE Jul 29, 2023 11:15 AM [facility] CEA Specimen Type: SERUM No comment entered. Ordering Provider: GIULIA CHANG MD Report Released Date/Time: Jul 22, 2023 03:55 PM Reporting Lab: [address] Performing Lab: [address] [place] [address] CEA 1.98 ng/mL 0.0-5.0 Jul 29, 2023 11:15 AM [facility] CBC Specimen Type: BLOOD No comment entered. Ordering Provider: GIULIA CHANG MD Report Released Date/Time: Jul 22, 2023 03:55 PM Reporting Lab: [address] [address] Performing Lab: [address] [place] [id number] WBC 9.7 10*3/uL 4.0-11.0 RBC 4.52 10*6/uL 4.4-5.9 HGB 14.9 g/dL 13.4-17.5 HEMATOCRIT 42.8 40-52 MCV 94.7 fL 82-98 MCH 32.9 pg 27.0-33.0 MCHC 34.7 g/dL 32.0-36.0 PLT 206 10*3/uL 140-400 RDW-CV 12.7 11.5-14.5 MPV 8.5 fL 6.6-10.6 Jul 29, 2023 11:15 AM [facility] Vitamin B12 & Folate Specimen Type: SERUM No comment entered. Ordering Provider: GIULIA CHANG MD Report Released Date/Time: Jul 22, 2023 03:55 PM Reporting Lab: [address] [facility] [address] Performing Lab: [address] [facility] [address] Vitamin B-12 >2000 pg/mL H 210-900 FOLATE SERUM/PLASMA >20.0 ng/mL 7-20 Jul 29, 2023 11:15 AM [facility] DIFF COUNT (BLOOD) Specimen Type: BLOOD No comment entered. Ordering Provider: GIULIA CHANG MD Report Released Date/Time: Jul 22, 2023 03:55 PM Reporting Lab: [place] [address] [address] [place] [address] Performing Lab: [place] [address] [address] [place] [address] NEUTROPHILS % 61.2 40-77 LYMPHOCYTE % 24.6 14-45 BASOPHILS % 0.8 0-2 MONOCYTE % 8.0 2-14 EOSINOPHILS % 5.4 0-7 LYMPHOCYTE # 2.4 10*3/uL 1.0-4.8 MONOCYTE # 0.8 10*3/uL 0.2-1.0 EOSINOPHIL # 0.5 10*3/uL 0.0-0.5 BASOPHILS # 0.1 10*3/uL 0-0.2 NEUTROPHIL # 5.9 10*3/uL 1.8-7.8 DIFTYPE AUTO Jul 29, 2023 11:15 AM [facility] C REACTIVE PROTEIN (NON-CARDIAC) Specimen Type: SERUM No comment entered. Ordering Provider: GIULIA CHANG MD Report Released Date/Time: Jul 22, 2023 03:55 PM Reporting Lab: [place] [address] [address] [place] [address] Performing Lab: [place] [address] C REACTIVE PROTEIN (NON-CARDIAC) 0.09 mg/dL 0.00-0.50 Jul 29, 2023 11:15 AM [facility] SED RATE Specimen Type: BLOOD No comment entered. Ordering Provider: GIULIA CHANG MD Report Released Date/Time: Jul 22, 2023 03:55 PM Reporting Lab: [place] [address] [address] [place] [address] Performing Lab: [place] [address] [place] [address] SED RATE 6 mm/h 0-20 Jul 29, 2023 11:15 AM [facility] URIC ACID Specimen Type: PLASMA No comment entered. Ordering Provider: GIULIA CHANG MD Report Released Date/Time: Jul 22, 2023 03:55 PM Reporting Lab: [facility] [address] [place] [address] Performing Lab: [facility] [address] [place] [address] URIC ACID 8.3 mg/dL H 3.5-7.2 Jul 29, 2023 11:15 AM [facility] THYROID PROFILE Specimen Type: PLASMA No comment entered. Ordering Provider: GIULIA CHANG MD Report Released Date/Time: Jul 22, 2023 03:55 PM Reporting Lab: [facility] [address] Performing Lab: [facility] [address] [place] [address] TSH 1.0260 u[IU]/mL 0.35-4.8 FREE THYROXINE 0.93 ng/dL 0.6-1.5 Jul 29, 2023 11:15 AM [facility] URINALYSIS Specimen Type: URINE No comment entered. Ordering Provider: GIULIA CHANG MD Report Released Date/Time: Jul 22, 2023 03:55 PM Reporting Lab: [facility] [address] [place] [address] Performing Lab: [facility] [address] [place] [address] URINE COLOR Yellow See_Comment SPECIFIC GRAVITY 1.015 1.005-1.035 UROBILINOGEN NEG mg/dL NEG URINE BILIRUBIN NEG mg/dL NEG URINE KETONES NEG mg/dL NEG URINE GLUCOSE (UA) NEG mg/dL NEG URINE PROTEIN (UA) NEG mg/dL NEG URINE PH 5.0 5.0-9.0 APPEARANCE CLEAR CLEAR URINE BLOOD NEG NEG URINE NITRITE NEG NEG LEUKOCYTE EST (UA) NEG NEG Jul 29, 2023 11:15 AM [facility] LIPID PROFILE Specimen Type: PLASMA No comment entered. Ordering Provider: GIULIA CHANG MD Report Released Date/Time: Jul 22, 2023 03:55 PM Reporting Lab: [facility] [address] [place] [id number] Performing Lab: [facility] [address] [place] [id number] LDL CHOL CALCULATION 62 mg/dL 0-100 CHOLESTEROL 117 mg/dL 0-200 HDL CHOLESTEROL 42 mg/dL 40-180 TRIGLYCERIDE 67 mg/dL 0-150 CHOLESTEROL:HDL CHOL RATIO 2.8 DIRECT LDL canc mg/dL 0-100 Jul 29, 2023 11:15 AM [facility] HEMOGLOBIN A1C Specimen Type: BLOOD Comment: Values [...] 2023 03:55 PM Reporting Lab: [facility] [address] [facility] [address] Performing Lab: [facility] [address] [facility] [address] HEMOGLOBIN A1C 4.9 4.2-5.8 Jul 29, 2023 11:15 AM [facility] MAGNESIUM Specimen Type: PLASMA No comment entered. Ordering Provider: GIULIA CHANG MD Report Released Date/Time: Jul 22, 2023 03:55 PM Reporting Lab: [facility] [address] [facility] [address] Performing Lab: [facility] [address] [facility] [address] MAGNESIUM 1.7 mg/dL 1.5-2.6 Jul 29, 2023 11:15 AM [facility] IRON GROUP Specimen Type: PLASMA No comment entered. Ordering Provider: GIULIA CHANG MD Report Released Date/Time: Jul 22, 2023 03:55 PM Reporting Lab: [facility] [address] [facility] [address] Performing Lab: [facility] [address] [facility] [address] TRANSFERRIN 207 mg/dL 180-330 IRON 113 ug/dL 65-175 CALC. TRANSFERRIN SATURATION 44 15-50 FERRITIN (WPB) 147.69 ng/mL 10-380 Calc TIBC 259 ug/dL L 260-445 Jul 29, 2023 11:15 AM [facility] BASIC METABOLIC PANEL Specimen Type: PLASMA No comment entered. Ordering Provider: GIULIA CHANG MD Report Released Date/Time: Jul 22, 2023 03:55 PM Reporting Lab: [place] [address] [address] [facility] [address] Performing Lab: [place] [address] [address] [place] [address] UREA NITROGEN 22 mg/dL 6-22 CALCIUM 9.5 mg/dL 8.5-10.5 CREATININE, SERUM OR PLASMA 0.97 mg/dL 0.60-1.30 GLUCOSE 93 mg/dL 70-100 SODIUM (SERUM/PLASMA) 140 mmol/L 134-145 POTASSIUM 4.3 mmol/L 3.6-5.2 CHLORIDE 103 mmol/L 100-111 CO2 27 mmol/L 21-29 EGFRCr 79 mL/min >=90 Jul 29, 2023 11:15 AM [facility] HEPATIC FUNCTION PANEL Specimen Type: PLASMA No comment entered. Ordering Provider: GIULIA CHANG MD Report Released Date/Time: Jul 22, 2023 03:55 PM Reporting Lab: [place] [address] [address] [place] [address] Performing Lab: [place] [address] [address] [place] [address] ALBUMIN 4.4 g/dL 3.4-5.2 ALKALINE PHOSPHATASE 62 U/L 40-150 ALT 19 U/L 0-55 AST 24 U/L 5-34 BILIRUBIN, TOTAL 0.7 mg/dL 0.2-1.2 DIRECT BILIRUBIN 0.3 mg/dL 0.0-0.5 PROTEIN, TOTAL 6.8 g/dL 6.2-8.5 A/G RATIO 1.8 0.8-2.0 Jul 29, 2023 11:15 AM [facility] PSA, FREE & TOT Specimen Type: SERUM No comment entered. Ordering Provider: GIULIA CHANG MD Report Released Date/Time: Jul 23, 2023 08:50 AM Reporting Lab: [place] [address] [address] Performing Lab: [place] [address] PSA-TOT <0.10 ng/mL 0.1-4.0 Advance Directives: All historical and current Section Date Range: From patient's date of to the date document was created. This section includes ALL of a patient's completed or amended [place] Advance and Rescinded Directives. The entries below indicate that a directive exists for the patient, but an actual copy is not included with this document. The data comes from all [place] facilities. Date Advance Directives Provider Source Jun 30, 2014 ADVANCE DIRECTIVE OBED HERNANDES [facility] Encounter Notes: All associated encounter notes This section contains the clinical notes associated to the Encounter. Date/Time Encounter Note(s) Provider Source Jul 30, 2023 03:14 PM CARE MANAGEMENT NO TE: LOCAL TITLE: TRAVELING COORDINATOR STANDARD TITLE: CARE MANAGEMENT NOTE DATE OF NOTE: JUL 30, 2023@15:14 ENTRY DATE: JUL 30, 2023@15:14:10 AUTHOR: [facility] EXP COSIGNER: URGENCY: STATUS: COMPLETED TRAVELING COORDINATOR Has ADDENDA Interfacility [facility] care coordination completed as requested by Alternate [facility]. Verified 07/29/23 FTP LAB appt attendance and results of care coordination given to ordering provider on existing TVC consult as significant findings. See [facility] consult 07/21/23 for full information* Note placed for non-count clinic encounter purposes. /es/ SHAHZAD LlamasN, wire lather Coordinator Signed: 07/30/2023 15:14 08/10/2023 ADDENDUM STATUS: COMPLETED Addiitonal lab results provided on consult as significant findings: (Celiac, tryptase, stool results). /bhavesh/ Janna Torres, MSN, RN, [facility], [facility] Traveling [place] Coordinator Signed: 08/10/2023 08:57 [facility]
--- OUTSIDE RECORDS SUMMARY | 2024-04-08 14:43 | XMS_ITS | Encounter Summary ---
Author Name [facility] [place] Organization [place] Address [address] [place] [address] Care Team Providers Care De Icer Kit Assembler Name Role Phone CORETTA REY Primary Care [...] [facility] Apr 14, 2010 [id number] [facility] MAYUR,ELOISE HARD PATIENT [employer]IG[employer] MEDICAL EXPENSE (OPT/PROF ) [facility] Mar 14, 2010 [id number] [facility] [phone] BLOHM,ELOISE HARD PATIENT CIGNA BEHAVIORAL HEALTH MENTAL HEALTH [facility] Mar 14, 2010 [id number] [facility] [phone] BLOHM,ELOISE HARD PATIENT MEDICARE (WNR) MEDICARE (M) PART B Sep 14, 2007 PART B [id number] [phone] [id number] BLOHM,ELOISE HARD PATIENT MEDICARE (WNR) MEDICARE (M) PART B Sep 14, 2007 PART B [id number] [phone] BLOHM,ELOISE HARD PATIENT MEDICARE (WNR) MEDICARE (M) PART A Sep 14, 2007 PART A [id number] BLOHM,ELOISE HARD PATIENT MEDICARE (WNR) MEDICARE (M) PART A Sep 14, 2007 PART A [id number] BLOHM,ELOISE HARD PATIENT MEDICARE (WNR) MEDICARE (M) PART A Sep 14, 2007 PART A [id number] BLOHM,ELOISE HARD PATIENT MEDICARE (WNR) MEDICARE (M) PART B Sep 14, 2007 PART B [id number] BLOHM,ELOISE HARD PATIENT MEDICARE PART D (WNR) MEDICARE (M) PART D Sep 14, 2012 PART D [id number] BLOHM,ELOISE HARD PATIENT OPTIMUM CHOICE POINT OF SERVICE [facility] Aug 14, 1998 [id number] [phone] BLOHM,ELOISE HARD PATIENT Selected Encounter This section includes the information on record at [place] for the Encounter. Date/Time Encounter Type Encounter Description Reason Provider Source Aug 07, 2023 09:15 AM Outpatient Encounter TELEPHONE/MEDICIN E ICD-10-CM R19.7 Diarrhea, unspecified ABDIRAHMAN SQUIRES Y IHE Encounter Template Text not used by [place] Assessments - Encounter Diagnoses This section includes the primary and secondary diagnoses documented for the Encounter. Date/Time Primary/Secondary Diagnosis Diagnosis Name Provider Source Aug 07, 2023 09:15 AM PRIMARY Diarrhea, unspecified YVONNE SQUIRES [facility] Plan of Treatment: Future Appointments (+ 6 months) and Future Tests (+/- 45 days) The Plan of Treatment section includes future care activities for the patient from all [facility] treatment[facility]ilities. This section includes future appointments and future orders which are active, pending or scheduled. Active, Pending, and Scheduled Orders This section includes a listing of several types of active, pending, and scheduled orders, including clinic medications orders, diagnostic test orders, procedure orders and consult orders; where the start date of the order is 45 days before the date of the Encounter or 45 days after the date of theEncounter. The data comes from all [place] treatment [facility]. Test Date/Time Test Type Test Details Facility Name Jul 22, 2023 12:00 AM Laboratory - Microbiology Order FECAL FAT, QUALITATIVE STOOL FECES [facility] Jul 22, 2023 12:00 AM Laboratory - Chemistry Order FECAL LACTOFERRIN STOOL FECES [facility] Jul 22, 2023 12:00 AM Laboratory - Microbiology Order YERSINIA CULTURE STOOL FECES [facility] Jul 22, 2023 03:55 PM Laboratory - Chemistry Order GASTROINTESTINAL (GI) PANEL BIOFIRE STOOL FECES [facility] Jul 22, 2023 03:55 PM Laboratory - Chemistry Order LAB C DIFF PANEL STOOL FECES Jul 22, 2023 03:55 PM Laboratory - Microbiology Order O&P (STOOL) STOOL FECES [facility] Jul 23, 2023 05:00 AM Laboratory - Chemistry Order FERRITIN (WPB) BLOOD (LIGHT-GREEN PST) PLASMA [facility] Jul 23, 2023 03:55 PM Laboratory - Microbiology Order O&P (STOOL) STOOL FECES [facility] Jul 29, 2023 12:00 AM Laboratory - Chemistry Order OSMOLALITY, FECES STOOL [facility]ECES Jul 29, 2023 12:00 AM Laboratory - Chemistry Order CALPROTECTIN, STOOL STOOL STERILE/NO PRESERVATIVE [facility]EC[facility] Jul 29, 2023 12:00 AM Laboratory - Chemistry Order GIARDIA ANTIGEN DETECTION STOOL FECES Lab Results: +/- 30 days of the encounter This section includes the Chemistry and Hematology Lab Results on record with [place] for the patient. Radiology Reports and Pathology Reports are provided separately, in subsequent sections. Lab Results This section contains the Chemistry/Hematology Results that were resulted 30 days before or 30 daysafter the date of the Encounter. Date/Time Source Result Type Result - Unit Interpretation Reference Range Comment Aug 04, 2023 12:59 PM [facility] OCCULT BLOOD FITX1 SCREEN Specimen Type: FECES No comment entered. Ordering Provider: GIULIA CHANG MD Report Released Date/Time: Jul 22, 2023 03:55 PM Reporting Lab: [facility] [address] [facility] [address] Performing Lab: [facility] [address] [facility] [address] OCCULT BLOOD (FIT) #1 OF 1 Negative Negative Jul 29, 2023 11:15 AM [facility] TRYPTASE Specimen Type: SERUM Comment: REFERENCE RANGE: <11.0 mcg/L The Tryptase test, fluorescent enzyme immunoassay (FEIA), measures both the Alpha and Beta forms of Tryptase. Measuring both forms of Tryptase increases sensitivity for the diagnosis of mastocytosis, and mast cell degranulation as a cause of anaphylaxis. Test Performed by [facility], [place], [address] [place], [place] Gui Blakely M.D., Ph.D., Director of Laboratories , CLIA [id number] Ordering Provider: GIULIA CHANG MD Report Released Date/Time: Jul 22, 2023 03:55 PM Reporting Lab: [facility] [address] [facility] [address] Performing Lab: [address] TRYPTASE 11.3 ug/L H SEE BELOW Jul 29, 2023 11:15 AM [facility] CELIAC DISEASE COMPREHENSIVE PANEL Specimen Type: [...] 15.0 Antibody detected SERUM IGA:Test Performed by [facility], SERUM IGA:JDCPhosphate, SERUM IGA:[id number] [place], [place] SERUM IGA:Gui Blakely M.D., Ph.D., Director of Laboratories SERUM IGA: , CLIA [id number] Ordering Provider: GIULIA CHANG MD Report Released Date/Time: Jul 22, 2023 03:55 PM Reporting Lab: [facility] [address] [facility] [address] Performing Lab: [facility] [address] RANDHAWA DE IGA, SERUM QUEST 262 mg/dL 70-320 TISSUE TRANSGLUT IgA Ab <1.0 SEE BELOW INTERPRETATION SEE NOTE Jul 29, 2023 11:15 AM [facility] CEA Specimen Type: SERUM No comment entered. Ordering Provider: GIULIA CHANG MD Report Released Date/Time: Jul 22, 2023 03:55 PM Reporting Lab: [place] [address] [facility] [address] Performing Lab: [place] [address] [facility] [address] CEA 1.98 ng/mL 0.0-5.0 Jul 29, 2023 11:15 AM [facility] Vitamin B12 & Folate Specimen Type: SERUM No comment entered. Ordering Provider: GIULIA CHANG MD Report Released Date/Time: Jul 22, 2023 03:55 PM Reporting Lab: [place] [address] [facility] [address] Performing Lab: [place] [address] [facility] [address] Vitamin B-12 >2000 pg/mL H 210-900 FOLATE SERUM/PLASMA >20.0 ng/mL 7-20 Jul 29, 2023 11:15 AM [facility] CBC Specimen Type: BLOOD No comment entered. Ordering Provider: GIULIA CHANG MD Report Released Date/Time: Jul 22, 2023 03:55 PM Reporting Lab: [place] [address] [facility] [address] Performing Lab: [place] [address] [facility] [address] WBC 9.7 10*3/uL 4.0-11.0 RBC 4.52 10*6/uL 4.4-5.9 HGB 14.9 g/dL 13.4-17.5 HEMATOCRIT 42.8 40-52 MCV 94.7 fL 82-98 MCH 32.9 pg 27.0-33.0 MCHC 34.7 g/dL 32.0-36.0 PLT 206 10*3/uL 140-400 RDW-CV 12.7 11.5-14.5 MPV 8.5 fL 6.6-10.6 Jul 29, 2023 11:15 AM [facility] DIFF COUNT (BLOOD) Specimen Type: BLOOD No comment entered. Ordering Provider: GIULIA CHANG MD Report Released Date/Time: Jul 22, 2023 03:55 PM Reporting Lab: [facility] [address] Performing Lab: [facility] [address] [place] [address] NEUTROPHILS % 61.2 40-77 LYMPHOCYTE % 24.6 14-45 BASOPHILS % 0.8 0-2 MONOCYTE % 8.0 2-14 EOSINOPHILS % 5.4 0-7 LYMPHOCYTE # 2.4 10*3/uL 1.0-4.8 MONOCYTE # 0.8 10*3/uL 0.2-1.0 EOSINOPHIL # 0.5 10*3/uL 0.0-0.5 BASOPHILS # 0.1 10*3/uL 0-0.2 NEUTROPHIL # 5.9 10*3/uL 1.8-7.8 DIFTYPE AUTO Jul 29, 2023 11:15 AM [facility] SED RATE Specimen Type: BLOOD No comment entered. Ordering Provider: GIULIA CHANG MD Report Released Date/Time: Jul 22, 2023 03:55 PM Reporting Lab: [place] [address] [place] [address] Performing Lab: [place] [address] [place] [address] SED RATE 6 mm/h 0-20 Jul 29, 2023 11:15 AM [facility] C REACTIVE PROTEIN (NON-CARDIAC) Specimen Type: SERUM No comment entered. Ordering Provider: GIULIA CHANG MD Report Released Date/Time: Jul 22, 2023 03:55 PM Reporting Lab: [facility] [address] [place] [address] Performing Lab: [place] [address] [address] [place] [address] C REACTIVE PROTEIN (NON-CARDIAC) 0.09 mg/dL 0.00-0.50 Jul 29, 2023 11:15 AM [facility] URIC ACID Specimen Type: PLASMA No comment entered. Ordering Provider: GIULIA CHANG MD Report Released Date/Time: Jul 22, 2023 03:55 PM Reporting Lab: [facility] [address] [facility] [address] Performing Lab: [facility] [address] [place] [id number] URIC ACID 8.3 mg/dL H 3.5-7.2 Jul 29, 2023 11:15 AM [facility] LIPID PROFILE Specimen Type: PLASMA No comment entered. Ordering Provider: GIULIA CHANG MD Report Released Date/Time: Jul 22, 2023 03:55 PM Reporting Lab: [facility] [address] [facility] [address] Performing Lab: [facility] [address] [facility] [address] LDL CHOL CALCULATION 62 mg/dL 0-100 CHOLESTEROL 117 mg/dL 0-200 HDL CHOLESTEROL 42 mg/dL 40-180 TRIGLYCERIDE 67 mg/dL 0-150 CHOLESTEROL:HDL CHOL RATIO 2.8 DIRECT LDL canc mg/dL 0-100 Jul 29, 2023 11:15 AM [facility] URINALYSIS Specimen Type: URINE No comment entered. Ordering Provider: GIULIA CHANG MD Report Released Date/Time: Jul 22, 2023 03:55 PM Reporting Lab: [facility] [address] [facility] [address] Performing Lab: [facility] [address] [place] [phone] URINE COLOR Yellow See_Comment SPECIFIC GRAVITY 1.015 1.005-1.035 UROBILINOGEN NEG mg/dL NEG URINE BILIRUBIN NEG mg/dL NEG URINE KETONES NEG mg/dL NEG URINE GLUCOSE (UA) NEG mg/dL NEG URINE PROTEIN (UA) NEG mg/dL NEG URINE PH 5.0 5.0-9.0 APPEARANCE CLEAR CLEAR URINE BLOOD NEG NEG URINE NITRITE NEG NEG LEUKOCYTE EST (UA) NEG NEG Jul 29, 2023 11:15 AM [facility] HEMOGLOBIN A1C Specimen Type: BLOOD Comment: Values obtained from A1C measurements can vary. For typical A1C assays, a reported value of 7.0 could actually be between 6.72 and 7.28 if measured by a reference method. A reported value of 9.0 could actually be between 8.73 and 9.27. Ordering Provider: GIULIA CHANG MD Report Released Date/Time: Jul 22, 2023 03:55 PM Reporting Lab: [facility] [address] [facility] [address] Performing Lab: [facility] [address] [facility] [address] HEMOGLOBIN A1C 4.9 4.2-5.8 Jul 29, 2023 11:15 AM [facility] MAGNESIUM Specimen Type: PLASMA No comment entered. Ordering Provider: GIULIA CHANG MD Report Released Date/Time: Jul 22, 2023 03:55 PM Reporting Lab: [facility] [address] [facility] [address] Performing Lab: [facility] [address] [facility] [address] MAGNESIUM 1.7 mg/dL 1.5-2.6 Jul 29, 2023 11:15 AM [facility] THYROID PROFILE Specimen Type: PLASMA No comment entered. Ordering Provider: GIULIA CHANG MD Report Released Date/Time: Jul 22, 2023 03:55 PM Reporting Lab: [facility] [address] [facility] [address] Performing Lab: [facility] [address] [facility] [address] TSH 1.0260 u[IU]/mL 0.35-4.8 FREE THYROXINE 0.93 ng/dL 0.6-1.5 Jul 29, 2023 11:15 AM [facility] IRON GROUP Specimen Type: PLASMA No comment entered. Ordering Provider: GIULIA CHANG MD Report Released Date/Time: Jul 22, 2023 03:55 PM Reporting Lab: [facility] [address] [facility] [address] Performing Lab: [facility] [address] [facility] [address] TRANSFERRIN 207 mg/dL 180-330 IRON 113 ug/dL 65-175 CALC. TRANSFERRIN SATURATION 44 15-50 FERRITIN (WPB) 147.69 ng/mL 10-380 Calc TIBC 259 ug/dL L 260-445 Jul 29, 2023 11:15 AM [facility] HEPATIC FUNCTION PANEL Specimen Type: PLASMA No comment entered. Ordering Provider: GIULIA CHANG MD Report Released Date/Time: Jul 22, 2023 03:55 PM Reporting Lab: [address] [place] [phone] Performing Lab: [address] [place] [address] ALBUMIN 4.4 g/dL 3.4-5.2 ALKALINE PHOSPHATASE 62 U/L 40-150 ALT 19 U/L 0-55 AST 24 U/L 5-34 BILIRUBIN, TOTAL 0.7 mg/dL 0.2-1.2 DIRECT BILIRUBIN 0.3 mg/dL 0.0-0.5 PROTEIN, TOTAL 6.8 g/dL 6.2-8.5 A/G RATIO 1.8 0.8-2.0 Jul 29, 2023 11:15 AM [facility] PSA, FREE & TOT Specimen Type: SERUM No comment entered. Ordering Provider: GIULIA CHANG MD Report Released Date/Time: Jul 23, 2023 08:50 AM Reporting Lab: [address] [place] [address] Performing Lab: [place] [address] PSA-TOT <0.10 ng/mL 0.1-4.0 Jul 29, 2023 11:15 AM [facility] BASIC METABOLIC PANEL Specimen Type: PLASMA No comment entered. Ordering Provider: GIULIA CHANG MD Report Released Date/Time: Jul 22, 2023 03:55 PM Reporting Lab: [address] Performing Lab: [place] [address] UREA NITROGEN 22 mg/dL 6-22 CALCIUM 9.5 mg/dL 8.5-10.5 CREATININE, SERUM OR PLASMA 0.97 mg/dL 0.60-1.30 GLUCOSE 93 mg/dL 70-100 SODIUM (SERUM/PLASMA) 140 mmol/L 134-145 POTASSIUM 4.3 mmol/L 3.6-5.2 CHLORIDE 103 mmol/L 100-111 CO2 27 mmol/L 21-29 EGFRCr 79 mL/min >=90 Advance Directives: All historical and current Section Date Range: From patient's date of to the date document was created. This section includes ALL of a patient's completed or amended [place] Advance and Rescinded Directives. The entries below indicate that a directive exists for the patient, but an actual copy is not included with this document. The data comes from all [place] facilities. Date Advance Directives Provider Source Jun 30, 2014 ADVANCE DIRECTIVE OBED HERNANDES [facility] Encounter Notes: All associated encounter notes This section contains the clinical notes associated to the Encounter. 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, nail pitting, joint pains, enthesitis - previously on MTX but did not tolerate - then placed on Remicade but discontinued in 2010 as he went into remission - symptoms worsened again in 2015, bilateral wrist/hand/shoulder/Achilles - established care at [facility] 02/2018, hep B/C and [...] call to patient today to go over recent labs/stool sample results as well as the e-consult recommendations from GI - patient says that he has actually noticed a recent improement in the diarrhea - he isn't quite ready to pursue a colo at this point but says he will cont to think about it - he says he has been eating wahtever he wants and the diarrhea has not been as much of an interuption in his daily life ROS: otherwise negative PMHx: reviewed Medications/Allergies: reviewed [...] to today on the phone in f/u of chronic diarrhea. I discussed with patient the results of his stool tests and also the recommendations from GI in the e-consult on 07/31. Patient tells me that the diarrhea actually seems to have slowed down. He is aware of the difference between a diagnostic and screening colo and says he will think about whether or not that is something he wants to pursue. If he does want to pursue he says he will get in touch with his PCP in [place]. Patient has no further questions or concerns at this time. I will see patient in routine f/u when he returns from [place] in early february. 15 minutes was spent in phone discussion with patient, chart review, and documentation of assessment and plan. /bhavesh/ Yvonne Squires, MSN, HUMAN RESOURCES MANAGER Nurse Practitioner, Rheumatology Signed: 08/27/2023 08:45 YVONNE SQUIRES [facility]
--- OUTSIDE RECORDS SUMMARY | 2024-04-08 14:43 | XMS_ITS | Encounter Summary ---
Author Name [place] Address [address] [place] [address] Care Team Providers Care Business Process Consultant Name Role Phone CORETTA ERY Primary Care Provider Unavailabl e Insurance Providers: [...] Guzman CIGNA INCOME PROTECTIO N (INDEMNIT Y) [facility] Apr 14, 2010 [id number] [facility] BLOHM,ELOISE HARD PATIENT CIGNA MEDICAL EXPENSE (OPT/PROF ) [facility] Mar 14, 2010 [id number] [facility] BLOHM,ELOISE HARD PATIENT CIGNA BEHAVIORAL HEALTH MENTAL HEALTH [facility] Mar 14, 2010 [id number] [facility] BLOHM,ELOISE HARD PATIENT MEDICARE (WNR) MEDICARE (M) PART B Sep 14, 2007 PART B [id number] BLOHM,ELOISE HARD PATIENT MEDICARE (WNR) MEDICARE (M) PART A Sep 14, 2007 PART A [id number] [phone] [id number] BLOHM,ELOISE HARD PATIENT MEDICARE (WNR) MEDICARE (M) PART B Sep 14, 2007 PART B [id number] BLOHM,ELOISE HARD PATIENT MEDICARE (WNR) MEDICARE (M) PART A Sep 14, 2007 PART A [id number] BLOHM,ELOISE HARD PATIENT MEDICARE (WNR) MEDICARE (M) PART A Sep 14, 2007 PART A [id number] [phone] BLOHM,ELOISE HARD PATIENT MEDICARE (WNR) MEDICARE (M) PART B Sep 14, 2007 PART B [id number] BLOHM,ELOISE HARD PATIENT MEDICARE PART D (WNR) MEDICARE (M) PART D Sep 14, 2012 PART D [id number] BLOHM,ELOISE HARD PATIENT OPTIMUM CHOICE POINT OF SERVICE [facility] Aug 14, 1998 [id number] [phone] BLOHM,ELOISE HARD PATIENT Selected Encounter This section includes the information on record at [place] for the Encounter. Date/Time Encounter Type Encounter Description Reason Pro vider Source Sep 17, 2023 09:11 AM Outpatient Encounter PRIMARY CARE/MEDICINE IHE Encounter Template Text not used by [place] Plan of Treatment: Future Appointments (+ 6 months) and Future Tests (+/- 45 days) The Plan of Treatment section includes future care activities for the patient from all [place] treatmentfacilities. This section includes future appointments and future orders which are active, pending or scheduled. Future Appointments This section includes appointments that were scheduled to occur 6 months from the date of the Encounter, up to a maximum of 20 appointments. The data comes from all [place] treatment facilities. Appointment Date/Time Appointment Type Appointme nt Facility Name Feb 26, 2024 09:45 AM AMBULATORY - MEDICINE [facility] Aidan PAIZ [facility] Active, Pending, and Scheduled Orders This section includes a listing of several types of active, pending, and scheduled orders, including clinic medications orders, diagnostic test orders, procedure orders and consult orders; where the start date of the order is 45 days before the date of the Encounter or 45 days after the date of theEncounter. The data comes from all [place] treatment facilities. Test Date/Time Test Type Test Details Facility Name Sep 24, 2023 12:00 AM Laboratory - Chemi stry Order CBC BLOOD (LAVENDER-BLOOD) [facility] Sep 24, 2023 12:00 AM Laboratory - Chemi stry Order DIFF COUNT (BLOOD) BLOOD (LAVENDER-BLOOD) [facility] Sep 24, 2023 12:00 AM Laboratory - Chemi stry Order LIPID PROFILE BLOOD (LIGHT-GREEN PST) PLASMA [facility] Sep 24, 2023 12:00 AM Laboratory - Chemi stry Order HEPATIC FUNCTION PANEL BLOOD (LIGHT-GREEN PST) [facility]AS[facility] Sep 24, 2023 12:00 AM Laboratory - Chemi stry Order BASIC METABOLIC PANEL BLOOD (LIGHT-GREEN PST) PLAS[facility] Sep 24, 2023 12:00 AM Laboratory - Chemi stry Order THYROID PROFILE BLOOD (LIGHT-GREEN PST) PLASMA [facility] Sep 24, 2023 12:00 AM Laboratory - Chemi stry Order PSA, FREE & TOT BLOOD (GOLD-SST) SERUM [facility] Sep 24, 2023 12:00 AM Laboratory - Chemi stry Order HEMOGLOBIN A1C BLOOD (LAVENDER-BLOOD) [facility] Sep 24, 2023 12:00 AM Laboratory - Chemi stry Order MICROALBUMIN/CREATININE PANEL URINE (RANDOM) [facility] Sep 24, 2023 12:00 AM Laboratory - Chemi stry Order VITAMIN D, 25-OH, TOTAL BLOOD (GOLD-SST) SERUM [facility] Advance Directives: All historical and current Section Date Range: From patient's date of to the date document was created. This section includes ALL of a patient's completed or amended [place] Advance and Rescinded Directives. The entries below indicate that a directive exists for the patient, but an actual copy is not included with this document. The data comes from all [facility]. Date Advance Directives Provider Source Jun 30, 2014 ADVANCE DIRECTIVE OBED HERNANDES [facility] Encounter Notes: All associated encounter notes This section contains the clinical notes associated to the Encounter. Date/Time Encounter Note(s) Provider Source Sep 17, 2023 09:11 AM PRIMARY CARE ADMIN ISTRATIVE NOTE: LOCAL TITLE: [facility] ADMINISTRATIVE STANDARD TITLE: PRIMARY CARE ADMINISTRATIVE NOTE DATE OF NOTE: SEP 17, 2023@09:11 ENTRY DATE: SEP 17, 2023@09:11:51 AUTHOR: SUKHDEEP DRAKE I EXP COSIGNER: URGENCY: STATUS: COMPLETED Attempted to contact the patient regarding: schedule annual labs and exam. Left a message for the patient to call the [facility] or the [place] underwriter back with the number provided to make the following appts. /bhavesh/ SUKHDEEP DRAKE DIRECTOR AGENCY & STRATEGIC PARTNERSHIPS Signed: 09/17/2023 09:11 SUKHDEEP DRAKE I [facility]
--- OUTSIDE RECORDS SUMMARY | 2024-04-08 14:43 | XMS_ITS | Encounter Summary ---
Author Name [facility] [place] Address [address] [place] [address] Care Team Providers Care Bailiff Name Role Phone CORETTA REY Primary Care [...] Guzman CIGNA INCOME PROTECTIO N (INDEMNIT Y) [facility] Apr 14, 2010 [id number] [facility] BLOHM,ELOISE HARD PATIENT CIGNA MEDICAL EXPENSE (OPT/PROF ) [facility] Mar 14, 2010 [id number] [facility] [phone] BLOHM,ELOISE HARD PATIENT CIGNA BEHAVIORAL HEALTH MENTAL HEALTH [facility] Mar 14, 2010 [id number] [facility] [phone] BLOHM,ELOISE HARD PATIENT MEDICARE (WNR) MEDICARE (M) PART B Sep 14, 2007 PART B [id number] BLOHM,ELOISE HARD PATIENT MEDICARE (WNR) MEDICARE (M) PART A Sep 14, 2007 PART A [id number] BLOHM,ELOISE HARD PATIENT MEDICARE (WNR) MEDICARE (M) PART B Sep 14, 2007 PART B [id number] BLOHM,ELOISE HARD PATIENT MEDICARE (WNR) MEDICARE (M) PART A Sep 14, 2007 PART A [id number] BLOHM,ELOISE HARD PATIENT MEDICARE (WNR) MEDICARE (M) PART A Sep 14, 2007 PART A [id number] BLOHM,ELOISE HARD PATIENT MEDICARE (WNR) MEDICARE (M) PART B Sep 14, 2007 PART B [id number] BLOHM,ELOISE HARD PATIENT MEDICARE PART D (WNR) MEDICARE (M) PART D Sep 14, 2012 PART D [id number] BLOHM,ELOISE HARD PATIENT OPTIMUM CHOICE POINT OF SERVICE [facility] Aug 14, 1998 [id number] [phone] BLOHM,ELOISE HARD PATIENT Selected Encounter This section includes the information on record at [place] for the Encounter. Date/Time Encounter Type Encounter Description Reason Pro vider Source Sep 09, 2023 11:07 AM Outpatient Encounter PRIMARY CARE/MEDICINE IHE Encounter Template Text not used by [place] Plan of Treatment: Future Appointments (+ 6 months) and Future Tests (+/- 45 days) The Plan of Treatment section includes future care activities for the patient from all [place] treatmentfacilities. This section includes future appointments and future orders which are active, pending or scheduled. Future Appointments This section includes appointments that were scheduled to occur 6 months from the date of the Encounter, up to a maximum of 20 appointments. The data comes from all [place] treatment facilities. Appointment Date/Time Appointment Type Appointme nt Facility Name Feb 26, 2024 09:45 AM AMBULATORY - MEDICINE [facility] Active, Pending, and Scheduled Orders This [...] Test Type Test Details Facility Name Jul 29, 2023 12:00 AM Laboratory - Chemi stry Order OSMOLALITY, FECES STOOL FECES [facility] Jul 29, 2023 12:00 AM Laboratory - Chemi stry Order CALPROTECTIN, STOOL STOOL STERILE/NO PRESERVATIVE FECES [facility] Jul 29, 2023 12:00 AM Laboratory - Chemi stry Order GIARDIA ANTIGEN DETECTION STOOL FECES [facility] Sep 24, 2023 12:00 AM Laboratory - Chemi stry Order DIFF COUNT (BLOOD) BLOOD (LAVENDER-BLOOD) [facility] NAMED [facility] Sep 24, 2023 12:00 AM Laboratory - Chemi stry Order BASIC METABOLIC PANEL BLOOD (LIGHT-GREEN PST) PLASMA [facility] NAMED [facility] Sep 24, 2023 12:00 AM Laboratory - Chemi stry Order CBC BLOOD (LAVENDER-BLOOD) [facility] NAMED [facility] Sep 24, 2023 12:00 AM Laboratory - Chemi stry Order LIPID PROFILE BLOOD (LIGHT-GREEN PST) PLASMA [facility] NAMED [facility] Sep 24, 2023 12:00 AM Laboratory - Chemi stry Order HEPATIC FUNCTION PANEL BLOOD (LIGHT-GREEN PST) PLASMA [facility] NAMED [facility] Sep 24, 2023 12:00 AM Laboratory - Chemi stry Order THYROID PROFILE BLOOD (LIGHT-GREEN PST) PLASMA [facility] NAMED [facility] Sep 24, 2023 12:00 AM Laboratory - Chemi stry Order PSA, FREE & TOT BLOOD (GOLD-SST) SERUM [facility] NAMED [facility] Sep 24, 2023 12:00 AM Laboratory - Chemi stry Order HEMOGLOBIN A1C BLOOD (LAVENDER-BLOOD) [facility] NAMED [facility] Sep 24, 2023 12:00 AM Laboratory - Chemi stry Order MICROALBUMIN/CREATININE PANEL URINE (RANDOM) [facility] NAMED [facility] Sep 24, 2023 12:00 AM Laboratory - Chemi stry Order VITAMIN D, 25-OH, TOTAL BLOOD (GOLD-SST) SERUM [facility] NAMED [facility] Advance Directives: All historical and current Section Date Range: From patient's date of to the date document was created. This section includes ALL of a patient's completed or amended [place] Advance and Rescinded Directives. The entries below indicate that a directive exists for the patient, but an actual copy is not included with this document. The data comes from all VA facilities. Date Advance Directives Provider Source Jun 30, 2014 ADVANCE DIRECTIVE OBED HERNANDES [place] [facility] Encounter Notes: All associated encounter notes This section contains the clinical notes associated to the Encounter. Date/Time Encounter Note(s) Provider Source Sep 09, 2023 11:07 AM PRIMARY CARE ADMIN ISTRATIVE NOTE: [facility] TITLE: [place] ADMINISTRATIVE STANDARD TITLE: PRIMARY CARE ADMINISTRATIVE NOTE DATE OF NOTE: SEP 09, 2023@11:07 ENTRY DATE: SEP 09, 2023@11:07:50 AUTHOR: SUKHDEEP DRAKE I EXP COSIGNER: URGENCY: STATUS: COMPLETED Attempted to contact the patient regarding: schedule annual labs and exam. Left a message for the patient to call the cboc or the movie writer back with the number provided to make the following appts. /bhavesh/ SUKHDEEP RDAKE LIGHT BULB ASSEMBLER Signed: 09/09/2023 11:08 SUKHDEEP DRAKE I [facility]
--- OUTSIDE RECORDS SUMMARY | 2024-04-08 14:44 | XMS_ITS | Encounter Summary ---
Author Name [facility] [place] Address [address] [place] [address] Care Team Providers Care Drier And Pulverizer Tender Name Role Phone CORETTA REY Primary Care [...] Guzman CIGNA INCOME PROTECTIO N (INDEMNIT Y) [facility] Apr 14, 2010 [id number] [facility] MAYUR,ELOISE HARD PATIENT CIGNA MEDICAL EXPENSE (OPT/PROF ) [facility] Mar 14, 2010 [id number] [facility] BLOHM,ELOISE HARD PATIENT CIGNA BEHAVIORAL HEALTH MENTAL HEALTH [facility] Mar 14, 2010 [id number] [facility] [phone] BLOHM,ELOISE HARD PATIENT MEDICARE (WNR) MEDICARE (M) PART B Sep 14, 2007 PART B [id number] BLOHM,ELOISE HARD PATIENT MEDICARE (WNR) MEDICARE (M) PART A Sep 14, 2007 PART A [id number] BLOHM,ELOISE HARD PATIENT MEDICARE (WNR) MEDICARE (M) PART A Sep 14, 2007 PART A [id number] [phone] BLOHM,ELOISE HARD PATIENT MEDICARE (WNR) MEDICARE (M) PART B Sep 14, 2007 PART B [id number] [phone] BLOHM,ELOISE HARD PATIENT MEDICARE (WNR) MEDICARE (M) PART A Sep 14, 2007 PART A [id number] [phone] BLOHM,ELOISE HARD PATIENT MEDICARE (WNR) MEDICARE (M) PART B Sep 14, 2007 PART B [id number] BLOHM,ELOISE HARD PATIENT MEDICARE PART D (WNR) MEDICARE (M) PART D Sep 14, 2012 PART D [id number] BLOHM,ELOISE HARD PATIENT OPTIMUM CHOICE POINT OF SERVICE [facility] Aug 14, 1996 [id number] [phone] BLOHM,ELOISE HARD PATIENT Selected Encounter This section includes the information on record at [place] for the Encounter. Date/Time Encounter Type Encounter Description Reason Provider Source Feb 26, 2024 09:45 AM OFFICE O/P EST HI 40 MIN RHEUMATOLOGY/ARTH RITIS ICD-10-CM L40.50 Arthropathic psoriasis, unspecified MIRALDI,ASHLE Y IHE Encounter Template Text not used by [place] Assessments - Encounter Diagnoses This section includes the primary and secondary diagnoses documented for the Encounter. Date/Time Primary/Secondary Diagnosis Diagnosis Name Provider Source Mar 14, 2024 02:23 PM PRIMARY Arthropathic psoriasis, unspecified MIRALDI,SURI [facility] Mar 14, 2024 02:23 PM SECONDARY Gout, unspecified MIRALDI,SURI [facility] Plan of Treatment: Future Appointments (+ [...] 20 appointments. The data comes from all [place] treatment facilities. Appointment Date/Time Appointment Type Appointme nt Facility Name Aug 23, 2024 08:15 AM AMBULATORY - MEDICINE [facility] Vital Signs: All taken on the encounter date This section contains inpatient and outpatient Vital Signs collected on the date of the Encounter. Date/Time Temperature Pulse Blood Pressure Respiratory Rate SP02 Pain Height Weight Body Mass Index Source Feb 26, 2024 09:40 AM 97.8 61 130/61 96 0 153 26 [facility] Advance Directives: All historical and current Section Date Range: From patient's date of to the date document was created. This section includes ALL of a patient's completed or amended [place] Advance and Rescinded Directives. The entries below indicate that a directive exists for the patient, but an actual copy is not included with this document. The data comes from all [place] facilities. Date Advance Directives Provider Source Jun 30, 2014 ADVANCE DIRECTIVE OBED HERNANDES [facility] Encounter Notes: All associated encounter notes This section contains the clinical notes associated to the Encounter. 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, nail pitting, joint pains, enthesitis - previously on MTX but did not tolerate - then placed on Remicade but discontinued in 2010 as he went into remission - symptoms worsened again in 2015, bilateral wrist/hand/shoulder/Achilles - established care at [facility] 02/2018, hep B/C and quant negative(Ordered [...] By imaging bilat wrists INTERVAL HX: - patient here for routine f/u for PsA and gout - remains on ixekizumab Q4 weeks, tolerating without ADRs - no gout symptoms despite not taking the allopurinol - just recently 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 [...] wrists and first CMC joints. Assessment/Plan: Mr. Rigoberto Merchant is a 83 year old gentleman with a PMH of psoriatic arthritis, gout, CPPD, OA, SCC, BCC, prostate ca s/p seed, CAD s/p CABG, L-spine stenosis, b/l knee replacements, and s/p right ankle fusion who presents for follow up. Patient on ixekizumab Q4 weeks, not taking allopurinol any longer because he felt like it was causing him GI upset and he preferred to be off of it. He is feeling quite well and does not have any inflammatory joint symptoms at this time. He plans to send me a copy of his recent labs that he has at home. PLAN: - Continue ixekizumab, prescription renewed today - monitor for gout symptoms, patient would be willing to resume allopurinol if necessary - patient to send me recent lab results - F/U by phone in Aug 45 minutes was spent in face to face discussion with patient, chart review, and documentation of assessment and plan. /bhavesh/ Suri Squires, MSN, ASSEMBLY LINE INSPECTOR Nurse Practitioner, Rheumatology Signed: 02/26/2024 16:12 SURI SQUIRES [facility]
--- OUTSIDE RECORDS SUMMARY | 2024-04-08 14:44 | XMS_ITS | Encounter Summary ---
Author Name [facility] [place] Address [address] [place] [address] Care Team Providers Care Sander Setter Name Role Phone CORETTA REY Primary Care [...] Guzman CIGNA INCOME PROTECTIO N (INDEMNIT Y) [facility] INS Apr 14, 2010 [id number] [facility] [phone] BLOHM,ELOISE HARD PATIENT CIGNA MEDICAL EXPENSE (OPT/PROF ) [facility] INS Mar 14, 2010 [id number] [facility] BLOHM,ELOISE HARD PATIENT CIGNA BEHAVIORAL HEALTH MENTAL HEALTH [facility] INS Mar 14, 2010 [id number] [facility] BLOHM,ELOISE HARD PATIENT MEDICARE (WNR) MEDICARE (M) PART B Sep 14, 2007 PART B [id number] [phone] BLOHM,ELOISE HARD PATIENT MEDICARE (WNR) MEDICARE (M) PART A Sep 14, 2007 PART A [id number] BLOHM,ELOISE HARD PATIENT MEDICARE (WNR) MEDICARE (M) PART B Sep 14, 2007 PART B [id number] BLOHM,ELOISE HARD PATIENT MEDICARE (WNR) MEDICARE (M) PART A Sep 14, 2007 PART A [id number] BLOHM,ELOISE HARD PATIENT MEDICARE (WNR) MEDICARE (M) PART A Sep 14, 2007 PART A [id number] BLOHM,ELOISE HARD PATIENT MEDICARE (WNR) MEDICARE (M) PART B Sep 14, 2007 PART B [id number] BLOHM,ELOISE HARD PATIENT MEDICARE PART D (WNR) MEDICARE (M) PART D Sep 14, 2012 PART D [id number] BLOHM,ELOISE HARD PATIENT OPTIMUM CHOICE POINT OF SERVICE [facility] Aug 14, 1996 [id number] [phone] BLOHM,ELOISE HARD PATIENT Selected Encounter This section includes the information on record at [place] for the Encounter. Date/Time Encounter Type Encounter Description Reason Pro vider Source Sep 18, 2023 03:36 PM Outpatient Encounter PRIMARY CARE/MEDICINE IHE Encounter Template Text not used by [place] [...] 09:45 AM AMBULATORY - MEDICINE [facility] Active, Pending, and Scheduled Orders This section [...] stry Order DIFF COUNT (BLOOD) BLOOD (LAVENDER-BLOOD) [facility] Sep 24, 2023 12:00 AM Laboratory - Chemi stry Order CBC BLOOD (LAVENDER-BLOOD) [facility] Sep 24, 2023 12:00 AM Laboratory - Chemi stry Order BASIC METABOLIC PANEL BLOOD (LIGHT-GREEN PST) PLASMA [facility] Sep 24, 2023 12:00 AM Laboratory - Chemi stry Order LIPID PROFILE BLOOD (LIGHT-GREEN PST) PLASMA [facility] Sep 24, 2023 12:00 AM Laboratory - Chemi stry Order HEPATIC FUNCTION PANEL BLOOD (LIGHT-GREEN PST) PLASMA [facility] Sep 24, 2023 12:00 AM Laboratory - Chemi stry Order THYROID PROFILE BLOOD (LIGHT-GREEN PST) PLASMA [facility] Sep 24, 2023 12:00 AM Laboratory - Chemi stry Order PSA, FREE & TOT BLOOD (GOLD-SST) SERUM [facility] Sep 24, 2023 12:00 AM Laboratory - Chemi stry Order HEMOGLOBIN A1C BLOOD (LAVENDER-BLOOD) [facility] Sep 24, 2023 12:00 AM Laboratory - Chemi stry Order VITAMIN D, 25-OH, TOTAL BLOOD (GOLD-SST) SERUM [facility] Sep 24, 2023 12:00 AM Laboratory - Chemi stry Order MICROALBUMIN/CREATININE PANEL URINE (RANDOM) [facility] Advance Directives: All historical and current Section Date Range: From patient's date of to the date document was created. This section includes ALL of a patient's completed or amended [place] Advance and Rescinded Directives. The entries below indicate that a directive exists for the patient, but an actual copy is not included with this document. The data comes from all [facility]. Date Advance Directives Provider Source Jun 30, 2014 ADVANCE DIRECTIVE OBED HERNANDES [facility] Encounter Notes: All associated encounter notes This section contains the clinical notes associated to the Encounter. Date/Time Encounter Note(s) Provider Source Sep 18, 2023 03:36 PM PRIMARY CARE ADMIN ISTRATIVE NOTE: LOCAL TITLE: [facility] STANDARD TITLE: PRIMARY CARE ADMINISTRATIVE NOTE DATE OF NOTE: SEP 18, 2023@15:36 ENTRY DATE: SEP 18, 2023@15:36:08 AUTHOR: SUKHDEEP DRAKE I EXP COSIGNER: URGENCY: STATUS: COMPLETED [facility] Has ADDENDA Letter sent regarding: patient to contact clinic to schedule annual exam and labs. /bhavesh/ SUKHDEEP DRAKE HE[facility] PROMOTION OFFICER Signed: 09/18/2023 15:36 11/10/2023 ADDENDUM STATUS: COMPLETED This literary writer attempted to contact the patient by phone to reschedule his/her annual appointments. Left a message on the patient's contact number listed on file. /bhavesh/ GOGO VAZQUEZ Roving Tester Laboratory Signed: 11/10/2023 14:35 SUKHDEEP DRAKE I [facility]
--- OUTSIDE RECORDS SUMMARY | 2024-04-08 14:44 | XMS_ITS | Encounter Summary ---
Author Name [facility] [place] Address [address] [place] [address] Care Team Providers Care Systems Administrator Name Role Phone CORETTA REY Primary Care [...] Guzman CIGNA INCOME PROTECTIO N (INDEMNIT Y) [facility] Apr 14, 2010 [id number] [facility] BLOHM,ELOISE HARD PATIENT CIGNA MEDICAL EXPENSE (OPT/PROF ) [facility] Mar 14, 2010 [id number] [facility] BLOHM,ELOISE HARD PATIENT CIGNA BEHAVIORAL HEALTH MENTAL HEALTH [facility] INS Mar 14, 2010 [id number] [facility] [phone] BLOHM,ELOISE HARD PATIENT MEDICARE (WNR) MEDICARE (M) PART B Sep 14, 2007 PART B [id number] [phone] BLOHM,ELOISE HARD PATIENT MEDICARE (WNR) MEDICARE (M) PART A Sep 14, 2007 PART A [id number] BLOHM,ELOISE HARD PATIENT MEDICARE (WNR) MEDICARE (M) PART A Sep 14, 2007 PART A [id number] BLOHM,ELOISE HARD PATIENT MEDICARE (WNR) MEDICARE (M) PART B Sep 14, 2007 PART B [id number] BLOHM,ELOISE HARD PATIENT MEDICARE (WNR) MEDICARE (M) PART A Sep 14, 2007 PART A [id number] BLOHM,ELOISE HARD PATIENT MEDICARE (WNR) MEDICARE (M) PART B Sep 14, 2007 PART B [id number] [phone] BLOHM,ELOISE HARD PATIENT MEDICARE PART D (WNR) MEDICARE (M) PART D Sep 14, 2012 PART D [id number] BLOHM,ELOISE HARD PATIENT OPTIMUM CHOICE POINT OF SERVICE [facility] Aug [birth year], 1996 [id number] [phone] BLOHM,ELOISE HARD PATIENT Selected Encounter This section includes the information on record at [place] for the Encounter. Date/Time Encounter Type Encounter Description Reason Pro vider Source Jan 01, 2024 03:50 PM Outpatient Encounter PRIMARY CARE/MEDICINE IHE Encounter Template Text not used by [place] Plan of Treatment: Future Appointments (+ 6 months) and Future Tests (+/- 45 days) The Plan of Treatment section includes future care activities for the patient from all [place] treatmentfacilities. This section includes future appointments and future orders which are active, pending or scheduled. Future Appointments This section includes appointments that were scheduled to occur 6 months from the date of the Encounter, up to a maximum of 20 appointments. The data comes from all [place] treatment facilities. Appointment Date/Time Appointment Type Appointme nt Facility Name Feb 26, 2024 09:45 AM AMBULATORY - MEDICINE [facility] Advance Directives: All historical and current Section Date Range: From patient's date of to the date document was created. This section includes ALL of a patient's completed or amended [place] Advance and Rescinded Directives. The entries below indicate that a directive exists for the patient, but an actual copy is not included with this document. The data comes from all [place] facilities. Date Advance Directives Provider Source Jun 30, 2014 ADVANCE DIRECTIVE OBED HERNANDES [place] [facility] Encounter Notes: All associated encounter notes This section contains the clinical notes associated to the Encounter. Date/Time Encounter Note(s) Provider Source Jan 01, 2024 03:51 PM ADMINISTRATIVE NOT E: LOCAL TITLE: CCC: SCHEDULING ADMINISTRATION STANDARD TITLE: ADMINISTRATIVE NOTE DATE OF NOTE: JAN 01, 2024@15:51 ENTRY DATE: JAN 01, 2024@15:51:02 AUTHOR: GOGO VAZQUEZ MA EXP COSIGNER: URGENCY: STATUS: COMPLETED This fiction and nonfiction writer prose attempted to contact the patient by phone to reschedule his/her annual appointments. Left a message on the patient's contact number listed on file. /bhavesh/ GOGO VAZQUEZ Photo Mask Processor Signed: 01/01/2024 15:51 GOGO VAZQUEZ [facility]
--- OUTSIDE RECORDS SUMMARY | 2024-04-08 14:44 | XMS_ITS | Encounter Summary ---
Author Name [facility] Organization [facility] [place] Address [address] [place] [address] Care Team Providers Care Label Fuser Tender Name Role Phone CORETTA REY Primary [...] CIGNA INCOME PROTECTIO N (INDEMNIT Y) [facility] Apr 14, 2010 [id number] [facility] [phone] MAYUR,ELOISE HARD PATIENT CIGNA MEDICAL EXPENSE (OPT/PROF ) [facility] INS Mar 14, 2010 [id number] [facility] BLOHM,ELOISE HARD PATIENT CIGNA BEHAVIORAL HEALTH MENTAL HEALTH [facility] INS Mar 14, 2010 [id number] [facility] WHITNEYHM,ELOISE HARD PATIENT MEDICARE (WNR) MEDICARE (M) PART B Sep 14, 2007 PART B [id number] BLOHM,ELOISE HARD PATIENT MEDICARE (WNR) MEDICARE (M) PART A Sep 14, 2007 PART A [id number] [id number] BLOHM,ELOISE HARD PATIENT MEDICARE (WNR) MEDICARE (M) PART B Sep 14, 2007 PART B [id number] BLOHM,ELOISE HARD PATIENT MEDICARE (WNR) MEDICARE (M) PART A Sep 14, 2007 PART A [id number] BLOHM,ELOISE HARD PATIENT MEDICARE (WNR) MEDICARE (M) PART A Sep 14, 2007 PART A [id number] BLOHM,ELOISE HARD PATIENT MEDICARE (WNR) MEDICARE (M) PART B Sep 14, 2007 PART B [id number] BLOHM,ELOISE HARD PATIENT MEDICARE PART D (WNR) MEDICARE (M) PART D Sep 14, 2012 PART D [id number] BLOHM,ELOISE HARD PATIENT OPTIMUM CHOICE POINT OF SERVICE [facility] Aug 14, 1998 [id number] [phone] BLOHM,ELOISE HARD PATIENT Selected Encounter This section includes the information on record at [place] for the Encounter. Date/Time Encounter Type Encounter Description Reason Provider Source Sep 30, 2023 01:24 PM Outpatient Encounter ADMIN PAT ACTIVTIES (MASNONCT) JANNA TORRES Encounter Template Text not used by [place] Plan of Treatment: Future Appointments (+ 6 months) and Future Tests (+/- 45 days) The Plan of Treatment section includes future care activities for the patient from all [place] treatmentfacilities. This section includes future appointments and future orders which are active, pending or scheduled. Future Appointments This section includes appointments that were scheduled to occur 6 months from the date of the Encounter, up to a maximum of 20 appointments. The data comes from all [place] treatment facilities. Appointment Date/Time Appointment Type Appointme nt Facility Name Feb 26, 2024 09:45 AM AMBULATORY - MEDICINE [facility] Active, Pending, and Scheduled Orders This [...] from all [facility]. Test Date/Time Test Type Test Details Facility Name Sep 24, 2023 12:00 AM Laboratory - Chemi stry Order CBC BLOOD (LAVENDER-BLOOD) [facility] Sep 24, 2023 12:00 AM Laboratory - Chemi stry Order BASIC METABOLIC PANEL BLOOD (LIGHT-GREEN PST) PLASMA [facility] Sep 24, 2023 12:00 AM Laboratory - Chemi stry Order DIFF COUNT (BLOOD) BLOOD (LAVENDER-BLOOD) [facility] Sep 24, 2023 12:00 AM Laboratory - Chemi stry Order LIPID PROFILE BLOOD (LIGHT-GREEN PST) PLASMA [facility] Sep 24, 2023 12:00 AM Laboratory - Chemi stry Order HEPATIC FUNCTION PANEL BLOOD (LIGHT-GREEN PST) PLASMA [facility] Sep 24, 2023 12:00 AM Laboratory - Chemi stry Order THYROID PROFILE BLOOD (LIGHT-GREEN PST) PLASMA [facility] Sep 24, 2023 12:00 AM Laboratory - Chemi stry Order PSA, FREE & TOT BLOOD (GOLD-SST) SERUM [facility] Sep 24, 2023 12:00 AM Laboratory - Chemi stry Order HEMOGLOBIN A1C BLOOD (LAVENDER-BLOOD) [facility] Sep 24, 2023 12:00 AM Laboratory - Chemi stry Order MICROALBUMIN/CREATININE PANEL URINE (RANDOM) [facility] Sep 24, 2023 12:00 AM Laboratory - Chemi stry Order VITAMIN D, 25-OH, TOTAL BLOOD (GOLD-SST) SERUM [facility] Advance Directives: All historical and current Section Date Range: From patient's date of to the date document was created. This section includes ALL of a patient's completed or amended [place] Advance and Rescinded Directives. The entries below indicate that a directive exists for the patient, but an actual copy is not included with this document. The data comes from all [facility]. Date Advance Directives Provider Source Jun 30, 2014 ADVANCE DIRECTIVE OBED HERNANDES [facility] Encounter Notes: All associated encounter notes This section contains the clinical notes associated to the Encounter. Date/Time Encounter Note(s) Provider Source Sep 30, 2023 01:24 PM CARE MANAGEMENT NO TE: LOCAL TITLE: TRAVELING COORDINATOR STANDARD TITLE: CARE MANAGEMENT NOTE DATE OF NOTE: SEP 30, 2023@13:24 ENTRY DATE: SEP 30, 2023@13:24:33 AUTHOR: JANNA TORRES EXP COSIGNER: URGENCY: STATUS: COMPLETED Midwife Practitioner received a voicemail as follows: I'm returning Mevli's call. I am calling to let her know the stool test was mailed back to [facility]. I don't know what happened to it. I feel it's probably not necessary but will follow up with my local C to see if it needs reordered. My number [phone] if you need anything else. Note placed for informational purposes. No action needed. /bhavesh/ Janna Torres, MSN, RN, CDCES, [facility] Traveling Coordinator Signed: 09/30/2023 13:25 JANNA TORRES [facility]
--- OUTSIDE RECORDS SUMMARY | 2024-04-08 14:45 | XMS_ITS | Encounter Summary ---
[place] [address] Care Team Providers Care Coater Brake Linings Name Role Phone Gavino Mccollum MD Primary Care Provider [phone] Encounter Details Date Type Department Care Team (Late st Contact Info) Description 06/05/2022 Telephone Dermatology at [address] [phone] Sierra Alarcon LPN Social History Tobacco Use Types Packs/Day Years Used Date Smoking Tobacco: Never Smokeless Tobacco: Never Sex and Gender Information Value Date Recorded Sex Assigned at Not on file Gender Identity Not on file Sexual Orientation Not on file documented as of this encounter Miscellaneous Notes * Telephone Encounter - Sierra Alarcon LPN - 06/05/2022 10:14 AM EDT 05/30/22 Shave right nasal tip Dx: BCCa No further treatment necessary, return to clinic 02/26/23 Reviewed biopsy results and Dr. Olivarez recommendation with patient. He voiced understanding. documented in this encounter Plan of Treatment Upcoming Encounters Date Type Department Care Team (Late st Contact Info) Description 04/11/2024 9:00 AM EDT Office Visit Dermatology at [address] [phone] Mark Ballesteros MD [address] [place] [address], ROBERT A DERMATOLOGY [place], [place] [phone] 06/09/2024 3:15 PM EDT Office Visit Dermatology at [place] [address] [place] [address] Mark Ballesteros MD [address] [facility], ROBERT Clarke DERMATOLOGY [place], [place] [phone] 03/01/2025 11:00 AM EDT Office Visit Cardiology at [place] [address] [facility] [place] [address] Leif Paniagua MD [facility] [place] [address] documented as of this encounter Visit Diagnoses Not on filedocumented in this encounter Care Teams Coater Brake Linings Relationship Specialty Start Date End Date Gavino Mccollum MD [address] [place] [address] PCP - General Dermatology 03/02/20 02/29/24 documented as of this encounter
--- OUTSIDE RECORDS SUMMARY | 2024-04-08 14:45 | XMS_ITS | Encounter Summary ---
[place] [address] Care Team Providers Care Lag Screwer Name Role Phone Gavino Mccollum MD Primary Care Provider [phone] Reason for Visit * Reason Comments Annual Exam Encounter Details Date Type Department Care Team (Late st Contact Info) Description 06/04/2023 3:45 PM EDT Office Visit Dermatology at [address] [phone] Mark Ballesteros MD [address] [facility], [place] [address] [place] (actinic keratosis); History of SCC (squamous cell carcinoma) of skin Social History Tobacco Use Types Packs/Day Years Used Date Smoking Tobacco: Never Smokeless Tobacco: Never Sex and Gender Information Value Date Recorded Sex Assigned at Not on file Gender Identity Not on file Sexual Orientation Not on file documented as of this encounter Progress Notes * Mark Ballesteros MD - 06/04/2023 3:45 PM EDT Problem: 1. Repeat skin checkup 2. Status post PDT therapy October 2013 3. History of multiple nonmelanoma cutaneous malignancies in [place] 4. 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 Status post courses of 5-FU / TAC May 2018, and May 2020 7. Status post three 1 week courses of 5-FU beginning of each month x3, February 2021, and February 2022 applying once daily 8. History malignant melanoma in his brother 9. History of malignant melanoma 0.65 mm Breslow depth right upper back July 2021. Kike follows up for his annual skin checkup. In December he had an SCC excised from his right parietal scalp and it has been granulating and gradually since then. Physical examination reveals a pleasant 82-year-old gentleman who has actinic keratoses present diffusely over the parietal scalp. He has only few sparsely scattered actinic's on his face. He has an early BCCA on the upper left preauricular cheek. Assessment plan: BCCA, appears to be recurrence, left upper preauricular cheek 1. Patient will be leaving soon to go back down to [place] first via [facility]. 2. There in [place] he will see his managed care liaison who can perform Mohs surgery on the site. 3. Patient will make his own appointment for this 4. Return to clinic here in 1 year for repeat check. Actinic keratoses scalp 1. Begin 5-fluorouracil 5% cream apply once daily to scalp for 1 week on off for 3 weeks. Repeat for total of 3 cycles. Right parietal scalp SCCA [place] treatment site 1. Patient given further wound care instructions for the care of this CC: Gavino Mccollum MD documented in this encounter Plan of Treatment Upcoming Encounters Date Type Department Care Team (Late st Contact Info) Description 04/11/2024 9:00 AM EDT Office Visit Dermatology at [address] [phone] Mark Ballesteros MD [address] [place] [address] 06/09/2024 3:15 PM EDT Office Visit Dermatology at [address] [phone] Mark Ballesteros MD [address] [place] [address] 03/01/2025 11:00 AM EDT Office Visit Cardiology at [address] [phone] Leif Paniagua MD [facility] [address] documented as of this encounter Visit Diagnoses Diagnosis AK (actinic keratosis) Actinic keratosis History of SCC (squamous cell carcinoma) of skin Personal history of other malignant neoplasm of skin documented in this encounter Care Teams Lag Screwer Relationship Specialty Start Date End Date Gavino Mccollum MD [address] [place] [address] PCP - General Dermatology 03/02/20 02/29/24 documented as of this encounter
--- OUTSIDE RECORDS SUMMARY | 2024-04-08 14:45 | XMS_ITS | Encounter Summary ---
Author Name [place] Organization [place] Address [address] [place] [address] Care Team Providers Care Assistant Professor Of Marine Biology Name Role Phone CORETTA REY Primary Care [...] [facility] INS Apr 14, 2010 [id number] [facility] MAYUR,ELOISE HARD PATIENT CIGNA MEDICAL EXPENSE (OPT/PROF ) [facility] INS Mar 14, 2010 [id number] [facility] BLOHM,ELOISE HARD PATIENT CIGNA BEHAVIORAL HEALTH MENTAL HEALTH [facility] INS Mar 14, 2010 [id number] [facility] [phone] BLOHM,ELOISE HARD PATIENT MEDICARE (WNR) MEDICARE (M) PART B Sep 14, 2007 PART B [id number] BLOHM,ELOISE HARD PATIENT MEDICARE (WNR) MEDICARE (M) PART A Sep 14, 2007 PART A [id number] BLOHM,ELOISE HARD PATIENT MEDICARE (WNR) MEDICARE (M) PART A Sep 14, 2007 PART A [id number] BLOHM,ELOISE HARD PATIENT MEDICARE (WNR) MEDICARE (M) PART B Sep 14, 2007 PART B [id number] BLOHM,ELOISE HARD PATIENT MEDICARE (WNR) MEDICARE (M) PART A Sep 14, 2007 PART A [id number] [phone] [id number] BLOHM,ELOISE HARD PATIENT MEDICARE (WNR) MEDICARE (M) PART B Sep 14, 2007 PART B [id number] [phone] BLOHM,ELOISE HARD PATIENT MEDICARE PART D (WNR) MEDICARE (M) PART D Sep 14, 2012 PART D [id number] BLOHM,ELOISE HARD PATIENT OPTIMUM CHOICE POINT OF SERVICE [facility] Aug 14, 1998 [id number] [phone] BLOHM,ELOISE HARD PATIENT Selected Encounter This section includes the information on record at [place] for the Encounter. Date/Time Encounter Type Encounter Description Reason Pro vider Source Nov 30, 2023 12:00 PM Outpatient Encounter ADMIN PAT ACTIVTIES (MASNONCT) I[facility] Encounter Template Text not used by [place] Plan of Treatment: Future Appointments (+ 6 months) and Future Tests (+/- 45 days) The Plan of Treatment section includes future care activities for the patient from all [place] treatmentfacilities. This section includes future appointments and future orders which are active, pending or scheduled. Future Appointments This section includes appointments that were scheduled to occur 6 months from the date of the Encounter, up to a maximum of 20 appointments. The data comes from all [place] treatment facilities. Appointment Date/Time Appointment Type Appointme nt Facility Name Feb 26, 2024 09:45 AM AMBULATORY - MEDICINE [facility] Advance Directives: All historical and current Section Date Range: From patient's date of to the date document was created. This section includes ALL of a patient's completed or amended [place] Advance and Rescinded Directives. The entries below indicate that a directive exists for the patient, but an actual copy is not included with this document. The data comes from all [place] facilities. Date Advance Directives Provider Source Jun 30, 2014 ADVANCE DIRECTIVE OBED HERNANDES [facility] Encounter Notes: All associated encounter notes This section contains the clinical notes associated to the Encounter. Date/Time Encounter Note(s) Provider Source Nov 30, 2023 12:00 PM NONVA NOTE: LOCAL TITLE: NonVA Medical Records STANDARD TITLE: NONVA NOTE DATE OF NOTE: NOV 30, 2023@12:00 ENTRY DATE: MAR 21, 2024@12:10:49 AUTHOR: REENA HESTER COSIGNER: URGENCY: STATUS: COMPLETED VistA Imaging - Scanned Document NON VA - LABORATORY DATES OF SERVICE: 11/30/23 RESULTS LOCATION OF SERVICE: [facility] SCANNED DOCUMENT SIGNATURE NOT REQUIRED Electronically Filed: 03/21/2024 by: REENA STONE [facility]
--- OUTSIDE RECORDS SUMMARY | 2024-04-08 14:45 | XMS_ITS | Encounter Summary ---
Author Organization [facility] [place] [address] Care Team Providers Care Marketing Analyst Name Role Phone Gavino Mccollum MD Primary Care Provider [phone] Encounter Details Date Type Department Care Team (Latest Contact Info) Description 06/18/2023 Travel Social History Tobacco Use Types Packs/Day Years Used Date Smoking Tobacco: Never Smokeless Tobacco: Never Sex and Gender Information Value Date Recorded Sex Assigned at Not on file Gender Identity Not on file Sexual Orientation Not on file documented as of this encounter Plan of Treatment Upcoming Encounters Date Type Department Care Team (Late st Contact Info) Description 04/11/2024 9:00 AM EDT Office Visit Dermatology at [address] [phone] Mark Ballesteros MD [address] [place] [address] [place] [address] 06/09/2024 3:15 PM EDT Office Visit Dermatology at [address] [phone] Mark Ballesteros MD [address] [place] [address] 03/01/2025 11:00 AM EDT Office Visit Cardiology at [address] [phone] Leif Paniagua MD [facility] [place] [address] documented as of this encounter Visit Diagnoses Not on filedocumented in this encounter Care Teams Marketing Analyst Relationship Specialty Start Date End Date Gavino Mccollum MD [address] [place] [address] PCP - General Dermatology 03/02/20 02/29/24 documented as of this encounter
--- OUTSIDE RECORDS SUMMARY | 2024-04-08 14:45 | XMS_ITS | Continuity of Care Document ---
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 COVID-19 (MGS43-LU U07.1). Course: Not improving. Plan: soonest for moab in his present locale would be 4 days form now due to weekend. pt is electing to retrurn home and deal with illness there. Need for Emergency Dept evaluation was discussed with pt as an appropriate option for further care due to complexity of investigation and/or intensity of condition especially if progressive shortness of breath or chest pain.. Patient Instructions: ; Follow up with primary care provider Within As needed. Counseled: Patient, Regarding diagnosis, Regarding treatment, Regarding medications, Regarding activity, Verbalized understanding. Summary: Pt was reminded that due to the nature of telemedicine, certain observable signs and medical testing are rendered impossible. Diagnoses and advice are given based on what can be observed via video chat and from the patient hx. If improvement does not occur, pt is encouraged to seek follow up care from their pcp, clinic or ED. . Problem List Condition Effective Dates Status Health Status Inform ant Arthritis(Confirmed) Active Cancer(Confirmed) Active Hyperlipidemia(Confirmed) Active Hypertension(Confirmed) Active Diagnosis Diagnosis Type Effective Dates Health Status Clinical Service Informant Hypertension Discharge Diagnosis 09/06/21 Non-Specified Immunosuppression due to drug therapy Discharge Diagnosis 09/06/21 Non-Specified COVID-19 Discharge Diagnosis 09/06/21 Non-Specified Procedures Procedure Date Related Diagnosis Body Site Status No previous procedures Co mpleted Vital Signs Most recent to oldest [Reference Range]: 1 Height Measured 65 in (09/06/21 3:33 PM) Weight Measured 165 lb (09/06/21 3:33 PM) Body Mass Index [18.5-25 kg/m2] 27.45 kg /m2 *HI* (09/06/21 3:33 PM) BSA 1.85 m2 (09/06/21 3:33 PM)
--- OUTSIDE RECORDS SUMMARY | 2024-04-08 14:45 | XMS_ITS | Encounter Summary ---
Author Organization [facility] [place] [address] Care Team Providers Care Surgery Center Administrator Name Role Phone Gavino Mccollum MD Primary Care Provider [phone] Encounter Details Date Type Department Care Team (Latest Contact Info) Description 06/04/2023 Travel Social History Tobacco Use Types Packs/Day [...] 9:00 AM EDT Office Visit Dermatology at [address] [phone] Mark Ballesteros MD [address] [place] [address] [place] [address] 06/09/2024 3:15 PM EDT Office Visit Dermatology at [address] [phone] Mark Ballesteros MD [address] [place] [address] 03/01/2025 11:00 AM EDT Office Visit Cardiology at [address] [phone] Leif Paniagua MD [facility] [place] [address] documented as of this encounter Visit Diagnoses Not on filedocumented in this encounter Care Teams Surgery Center Administrator Relationship Specialty Start Date End Date Gavino Mccollum MD [address] [place] [address] PCP - General Dermatology 03/02/20 02/29/24 documented as of this encounter
--- OUTSIDE RECORDS SUMMARY | 2024-04-08 14:45 | XMS_ITS | Encounter Summary ---
Author Organization On License [facility] [place] [address] Care Team Providers Care Gyroscope Technician Name Role Phone Brando Weathers MD Primary Care Provider [phone] Encounter Details Date Type Department Care Team (Late Contact Info) Description 03/16/2024 Refill Dermatology at [address] [phone] Sierra Alarcon LPN Social History Tobacco Use Types Packs/Day Years Used Date Smoking Tobacco: Never Smokeless Tobacco: Never Sex and Gender Information Value Date Recorded Sex Assigned at Not on file Gender Identity Not on file Sexual Orientation Not on file documented as of this encounter Miscellaneous Notes * Telephone Encounter - Sierra Alarcon LPN - 03/16/2024 1:08 PM EDT : 44 Patient reports everything has healed. He wants to start applying the 5- fluorouracil to his nose and face starting Thursday.(nightly for 1 week on 3 weeks off repeat for a total of 3 cycles) He needs arefill. He said Dr. Ballesteros discussed the treatment at his last appointment. Dr. Olivarez recommendations:Renew 5FU 40gm no refills to [place], [place] Patient notified. documented in this encounter Plan of Treatment Upcoming Encounters Date Type Department Care Team (Late Contact Info) Description 04/11/2024 9:00 AM EDT Office Visit Dermatology at [address] [phone] Mark Ballesteros MD [address] [facility] [place] [address] 06/09/2024 3:15 PM EDT Office Visit Dermatology at [address] [phone] Mark Ballesteros MD [address] [facility] [place] [address] 03/01/2025 11:00 AM EDT Office Visit Cardiology at [address] [phone] Leif Paniagua MD [facility] [place] [address] documented as of this encounter Visit Diagnoses Not on filedocumented in this encounter Care Teams Gyroscope Technician Relationship Specialty Start Date End Date Brando Weathers MD [address] [place] [address] PCP - General Internal Medicine 03/01/24 documented as of this encounter
--- OUTSIDE RECORDS SUMMARY | 2024-04-08 14:45 | XMS_ITS | Encounter Summary ---
[place] [address] Care Team Providers Care Warehouse Logistics Coordinator Name Role Phone Gavino Mccollum MD Primary Care Provider [phone] Reason for Visit * Reason Comments Follow-up Encounter Details Date Type Department Care Team (Late st Contact Info) Description 06/18/2023 8:45 AM EDT Office Visit Dermatology at [address] [place] [phone] Mark Ballesteros MD [address] [facility], [place] [address] Tseven's disease Social History Tobacco Use Types Packs/Day Years Used Date Smoking Tobacco: Never Smokeless Tobacco: Never Sex and Gender Information Value Date Recorded Sex Assigned at Not on file Gender Identity Not on file Sexual Orientation Not on file documented as of this encounter Progress Notes * Mark Ballesteros MD - 06/18/2023 8:45 AM EDT Problem: 1. Repeat skin checkup 2. Status post PDT therapy October 2013 3. History of multiple nonmelanoma cutaneous malignancies in [place] 4. History BCCA, sclerosing type, mid back [...] upper back July 2021. Kike follows up after last being seen on June 04. He is concerned about brand new itching on his chest and back. He has not been more physically active recently. He has not been outdoors or otherwise working up a sweat Physical examination reveals a pleasant 82-year-old gentleman who has erythematous papules on the flanks the back the chest which are excoriated. There are pinpoint papules. They are consistent with Grovers disease. The sites treated with liquid nitrogen are healing well in the scalp from his last visit on May 30. Assessment plan: Grovers disease, new onset 1. Begin CeraVe anti-itch formula cream apply once a day after his nightly shower 2. Patient uses Dove fragrance free sensitive skin soap. He does not use a washcloth to scrub his skin in the shower. Continue not to do this. 3. We will call in a prescription for triamcinolone 0.1% cream. We will call in the 1 pound jar foronce to twice daily applications to itchy areas on chest and back as needed to [facility]. Dispense 1 pound jar with 1 refills. CC: Gavino Mccollum MD documented in this encounter Plan of Treatment Upcoming Encounters Date Type Department Care Team (Late st Contact Info) Description 04/11/2024 9:00 AM EDT Office Visit Dermatology at [address] [phone] Mark Ballesteros MD [address] [place] [address] 06/09/2024 3:15 PM EDT Office Visit Dermatology at [address] [phone] Mark Ballesteros MD [address] [place] [address] 03/01/2025 11:00 AM EDT Office Visit Cardiology at [address] [phone] Leif Paniagua MD [facility] [place] [address] documented as of this encounter 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
--- OUTSIDE RECORDS SUMMARY | 2024-04-08 14:45 | XMS_ITS | Clinical Summary ---
Author Organization [facility] Address [facility] [place] [address] Care Team Providers Care Crossing Supervisor Name Role Phone Brando Weathers MD Primary Care Provider [phone] Allergies No known active allergies Medications Medication Sig Dispensed Refills Start Date End Date Status ketoconazole (NIZORAL) 2 % Shampoo MIX ENTIRE BOTTLE WITH CLOBETASOL SOLUTION AND USE TO WASH ONE TIME DAILY . LEAVE ON FOR 5 10 MINUTES THEN RINSE OFF 05/05/2020 Active aspirin EC 81 mg Tablet, Delayed Release (E.C.) TAKE ONE TABLET BY MOUTH DAILY 05/25/2006 Active rosuvastatin (Crestor) 5 mg Tablet Take 5 mg by mouth every evening. 11/14/2020 Active potassium chloride ER (K-Dur/Klor-Con) 10 mEq Tablet Sustained Release TAKE ONE TABLET BY MOUTH TWICE A DAY 03/09/2021 Active doxazosin (CARDURA) 2 mg Tablet Take 1 tablet by mouth nightly. 09/27/2021 Active amLODIPine-benazepriL (Lotrel) 10-40 mg capsule Take 1 capsule by mouth daily. Active ixekizumab (Taltz Autoinjector, 2 Pack,) 80 mg/mL Auto-Injector Inject subcutaneously. 10/09/2022 Active triamcinolone (Kenalog) 0.1 % Cream Apply twice daily to itchy areas on chest and back as needed 453.6 g 1 06/18/2023 Active human papillomavirus 9-valent, PF, (Gardasil 9, PF,) 0.5 mL Suspension Inject 0.5 mLs into the muscle once. Active fluorouraciL (EFUDEX) 5 % Cream Apply to nose and face nightly for 1 week on 3 weeks off repeat for a total of 3 cycles. 40 g 03/17/2024 Active Active Problems Problem Noted Date Diagnosed Date Nonrheumatic aortic valve stenosis 02/16/2024 Overview (03/01/2024): 08/2022 PADILLA: 29 mm Arun 3 08/2022 TTE: normal functioning valve, without regurgitation Assessment & Plan (03/01/2024 3:34 PM EDT): No issues per history nor exam. - ASA 81 QD - Because the valve is not mechanical, VKA is not required for this indication - Anti-biotic prophylaxis required as directed against expected bacterial varsha of at-risk procedures. Sleep apnea 02/16/2024 H/O prostate cancer 02/25/2022 Overview (02/25/2022): May 25, 2006 Entered By: VALENCIA GUTHRIE Comment: S/P SEED IMPLANTATION - FEBRUARY 2006 Cervical spondylosis without myelopathy 02/26/20 22 Dupuytren's contracture 02/25/2022 Overview (02/25/2022): May 16, 2014 Entered By: JAYCE CATRER Comment: R crystal, [place], 1977, not successful. Hyperpiesia 02/25/2022 Assessment & Plan (03/02/2024 8:42 AM EDT): Well controlled on current regimen. I think he can stop the hctz without causing his BP to rise to HTN level. If continues with orthostatic LH, can consider decreasing amlopdipine - Lotrel Malignant tumor of prostate 02/25/2022 Overview (02/25/2022): May 16, 2014 Entered By: JAYCE CARTER Comment: 2007, radioactive seeding. good PSA, F/U, non-[place] Psoriasis vulgaris 02/25/2022 Overview (02/25/2022): May 16, 2014 Entered By: JAYCE CARTER Comment: Mild, arthritis, multiple meds, [facility] 16, 2014 Entered By: JAYCE CARTER Comment: On no meds, 05/2014Jun 2018 Entered By: PB BRUNO Comment: Etanercept 06/01 Sensorineural hearing loss, bilateral 02/25/2022 ASCVD (arteriosclerotic cardiovascular disease) 02/25/2022 Overview (03/01/2024): 05/2015: CABG x 3 (MILES-LAD, SVG-OM1, SVG-PDA. DORIE closure with 35 mm Atriclip 07/2022 Cath (pre-PADILLA): LM and RCA totally occluded. Grafts patent Assessment & Plan (03/01/2024 3:34 PM EDT): No angina per history. - Anti-Thrombosis: asa 81 - Anti- Lipemic: crestor 5 - Anti- Anginals: GTN PRN, norvasc 10, toprol 25 Osteoarthritis of knee 04/04/2012 Overview (02/25/2022): May 16, 2014 Entered By: JAYCE CARTER Comment: R total knee 2012. L total knee 1983, good results. Resolved Problems Problem Noted Date Diagnosed Date Resolved Date Encounter for issue of repeat prescription 05/30/2022 03/01/2024 Male erectile disorder 02/25/202203/01 Psoriasis with arthropathy 02/25/2022 0 03/01/2024 Basal cell carcinoma of face 02/25/2022 03/01/2024 Overview (02/25/2022): May 16, 2014 Entered By: JAYCE CARTER Comment: Multiple, excised. Also squamous cell. Encounter for fitting and ad justment of hearing aid 02/25/2022 03/01/2024 Gout, unspecified 02/25/2022 03/01/2024 Heart murmur 02/25/2022 03/01/2024 Hyperlipidemia 02/25/2022 03/01/2024 Localized, primary osteoarthritis 02/25/2022 03/01/2024 Need for prophylactic vaccin ation and inoculation against viral disease 02/25/20222023 Other longterm (current) drug therapy 02/25/2022 03/01/2024 Encounter for immunization 11/27/2015 0 03/01/2024 AK (actinic keratosis) 05/16/201403/01 History of SCC (squamous christina l carcinoma) of skin 05/16/2014 03/01/2024 Inflammatory arthritis 04/04/201203/01 Encounters Date Type Department Care Team Description 03/16/2024 Refill Dermatology at [address] [phone] Sierra Alarcon LPN 03/01/2024 3:20 PM EDT Office Visit Cardiology at [address] [phone] Leif Paniagua MD ASCVD (arteriosclerotic cardiovascular disease); Nonrheumatic aortic valve stenosis; Hyperpiesia 03/01/2024 Travel 02/26/2024 Telephone Dermatology at [address] [phone] Flaca Nicole RN 02/19/2024 9:56 AM EDT - 02/19/2024 11:59 [place] [address] Discharge Disposition: Home 02/19/2024 9:45 AM EDT Office Visit Dermatology at [address] [phone] Mark Ballesteros MD Eastport's disease; AK (actinic keratosis); History of SCC (squamous cell carcinoma) of skin 02/16/2024 Abstract Cardiology at [address] [phone] Maliha Douglass RN Nonrheumatic aortic valve stenosis from Last 3 Months Social History Tobacco Use Types Packs/Day Years Used Date Smoking Tobacco: Never Smokeless Tobacco: Never Sex and Gender Information Value Date Recorded Sex Assigned at Not on file Gender Identity Not on file Sexual Orientation Not on file Last Filed Vital Signs Vital Sign Reading Time Taken Comments Blood Pressure 111/55 03/01/2024 3:47 PM EDT Pulse 65 03/01/2024 3:47 PM EDT per e cg Temperature - - Respiratory Rate - - Oxygen Saturation - - Inhaled Oxygen Concentration - - Weight 69.9 kg (154 lb) 03/01/2024 3:47 PM EDT Height 160 cm (5' 3) 03/01/2024 3:47 PM EDT Body Mass Index 27.28 03/01/2024 3:47 PM EDT Plan of Treatment Upcoming Encounters Date Type Department Care Team (Late st Contact Info) Description 04/11/2024 9:00 AM EDT Office Visit Dermatology at [address] [phone] Mark Ballesteros MD [address] [place] [address] 06/09/2024 3:15 PM EDT Office Visit Dermatology at [address] [phone] Mark Ballesteros MD [address] [place] [address] 03/01/2025 11:00 AM EDT Office Visit Cardiology at [address] [phone] Leif Paniagua MD [facility] [place] [address] Health Maintenance Due Date Last Done Comments Tdap adult 1961 Tetanus vaccine 1961 Zoster vaccine (1 of 2) 1992 Advance Directive 1997 Pneumoccocal Vaccine: 65+ (1 of 1 - PCV) 2007 Covid-19 Vaccine (1 - 2022-24 season) 2023 Influenza (Flu) vaccine (1 o f 1 - Influenza standard series) 05/15/2024 Procedures Procedure Name Priority Date/Time Associated Diagnosis Comments EKG 12-LEAD Routine 03/01/2024 4:01 PM EDT SURGICAL PATHOLOGY REPORT Routine 02/19/2024 10:35 AM EDT from Last 3 Months Results * EKG 12 Lead (03/01/2024 4:01 PM EDT) Ventricular rate 65 BPM MUSE SYSTEM Atrial Rate 65 BPM MUSE SYSTEM P-R Interval 138 ms MUSE SYSTEM QRS Duration 144 ms MUSE SYSTEM Q-T Interval 438 ms MUSE SYSTEM QTC Calculated (Bezet) 455 ms MUSE SYSTEM Calculated P [place] 51 degrees MUSE SYSTEM Calculated R [place] -84 degrees MUSE SYSTEM Calculated T [place] 86 degrees MUSE SYSTEM INTERPRETATION Normal sinus rhythm Left axis deviation Non-specific intra-ventricula r conduction block Possible Anterolateral infarct , age undetermined Abnormal ECG No previous ECGs available Confirmed by MD Paniagua Daniel ([id number]) on 03/06/2024 3:22:02 PM MUSE SYSTEM 03/01/2024 4:01 PM EDT 03/06/2024 3:22 PM EDT Unknown ECG ORDERABLES MUSE SYSTEM * (ABNORMAL) Surgical Pathology Report (02/19/2024 10:35 AM EDT) FINAL DIAGNOSIS (AP) [id number] ? Location: [facility] The signing pathologist has (i) examined the relevant preparation(s) for the specimen(s) and (ii) rendered or confirmed the diagnosis(es). . ?Surgical Pathology DIAGNOSIS A - Scalp, skin shave biopsy: - ??Squamous cell carcinoma in situ, present at the peripheral specimen edge, overlying dermal fibrosis B - Right upper chest, skin shave biopsy: - ??Verrucous acanthosis with basal layer atypia overlying dermal fibrosis, consistent with verrucous keratosis with features of actinic keratosis, inflamed and ? irritated Electronically signed by: ?Josef LEYVA, PhD, Gladys Verified: ??02/24/2024 17:24 ??Dermatopatholo gist Performed at: ??-[facility] Dept. of [place]ology, [place] [address] Orthotic Finish Grinding Technician: Gordo Burt MD, FCAP, ??CLIA Certificate: [id number] DISCUSSION THIS RESULT REQUIRES PHYSICIAN/A.P.P. FOLLOW UP SPECIMEN(S) SUBMITTED A - scalp, shave B - R upper chest skin shave, biopsy CLINICAL INFORMATION Erythematous patches, shave BX for Dx, [place]'s/SBCCA SPECIMEN PROCESSING A - Labeled/Fixative : A, formalin. Quantity/Size: ??Single, 1 x 1 x 0.1 cm. Tissue Description: Shave of white skin with a 0.2 x 0.1 cm brown skin patch. Sections/Process ing: Inked, serially sectioned and entirely submitted in 2 cassettes as follows: ?A1: ??Tips ?A2: ??Body B - Labeled/Fixative : B, formalin. Quantity/Size: ??Single, 0.9 x 0.8 x 0.1 cm. Tissue Description: Shave of a major-white scaly skin patch. Sections/Process ing: Inked, quadrisected and entirely submitted in 2 cassettes as follows: ?B1: ??Tips ?B2: ??Body ??SM(A) 02/24/2024 5:24 PM EDT [facility] 02/19/2024 10:3 5 AM EDT Mark Ballesteros MD PATHOLOGY/CYTOLOGY O RDERABLES [facility] [place] [address] from Last 3 Months Care Teams Crossing Supervisor Relationship Specialty Start Date End Date Brando Weathers MD [address] [place] [address] PCP - General Internal Medicine 03/01/24
--- OUTSIDE RECORDS SUMMARY | 2024-04-08 14:45 | XMS_ITS | Encounter Summary ---
Author Organization [facility] Address [facility] [address] [place] [address] Care Team Providers Care Card Cutter Helper Name Role Phone Brando Weathers MD Primary Care Provider [phone] Reason for Visit * Reason Comments Coronary Artery Disease Cardiac Valve Problem Aortic Valve Steno sis Encounter Details Date Type Department Care Team (Latest Contact Info) Description 03/01/2024 3:20 PM EDT Office Visit Cardiology at [address] [place] [address] Leif Paniagua MD [facility] [place] [address] ASCVD (arteriosclerotic cardiovascular disease); Nonrheumatic aortic valve stenosis; Hyperpiesia Social History Tobacco Use Types Packs/Day Years Used Date Smoking Tobacco: Never Smokeless Tobacco: Never Sex and Gender Information Value Date Recorded Sex Assigned at Not on file Gender Identity Not on file Sexual Orientation Not on file documented as of this encounter Last Filed Vital Signs Vital Sign Reading [...] Mass Index 27.28 03/01/2024 3:47 PM EDT documented in this encounter Progress Notes * Leif Paniagua MD - 03/01/2024 3:20 PM EDT Images from the original note were not included. CARDIOLOGY NEW OUTPATIENT PRIMARY CARE PROVIDER: Brando Weathers MD PROBLEM LIST: Patient Active Problem List Diagnosis Nonrheumatic aortic valve stenosis 08/2022 PADILLA: 29 mm Arun 3 08/2022 TTE: normal functioning valve, without regurgitation ASCVD (arteriosclerotic cardiovascular disease) 05/2015: CABG x 3 (MILES-LAD, SVG-OM1, SVG-PDA. DORIE closure with 35 mm Atriclip 07/2022 Cath (pre-PADILLA): LM and RCA totally occluded. Grafts patent Sleep apnea H/O prostate cancer May 25, 2006 Entered By: VALENCIA GUTHRIE Comment: S/P SEED IMPLANTATION - FEBRUARY 2006 Cervical spondylosis without myelopathy Dupuytren's contracture May 16, 2014 Entered By: JAYCE CARTER Comment: R hand, [place], 1977, not successful. Hyperpiesia Malignant tumor of prostate May 16, 2014 Entered By: JAYCE CARTER Comment: 2006, radioactive seeding. good PSA, F/U, non-[facility] Psoriasis vulgaris May 16, 2014 Entered By: JAYCE CARTER Comment: Mild, arthritis, multiple meds, [facility], 2014 Entered By: JAYCE CARTER Comment: On no meds, 05/2014Jun 2018 Entered By: PB BRUNO Comment: Etanercept 06/01 Sensorineural hearing loss, bilateral Osteoarthritis of knee May 16, 2014 Entered By: JAYCE CARTER Comment: R total knee 2012. L total knee 1983, good results. MEDICATIONS: Current Outpatient Medications Medication Instructions amLODIPine-benazepriL (Lotrel) 10-40 mg capsule 1 capsule, Oral, DAILY aspirin EC 81 mg Tablet, Delayed Release (E.C.) TAKE ONE TABLET BY MOUTH DAILY doxazosin (CARDURA) 2 mg Tablet 1 tablet, Oral, NIGHTLY human papillomavirus 9-valent, PF, (Gardasil 9, PF,) 0.5 mL Suspension 0.5 mLs, Intramuscular, ONCE ixekizumab (Taltz Autoinjector, 2 Pack,) 80 mg/mL Auto-Injector Subcutaneous ketoconazole (NIZORAL) 2 % Shampoo MIX ENTIRE BOTTLE WITH CLOBETASOL SOLUTION AND USE TO WASH ONE TIME DAILY . LEAVE ON FOR 5 10 MINUTES THEN RINSE OFF potassium chloride ER (K-Dur/Klor-Con) 10 mEq Tablet Sustained Release TAKE ONE TABLET BY MOUTH TWICE A DAY rosuvastatin (CRESTOR) 5 mg, Oral, EVERY EVENING triamcinolone (Kenalog) 0.1 % Cream Apply twice daily to itchy areas on chest and back as needed Subjective: Patient ID: Kike Colin is a 83 y.o. male. HPI: 83 m presents to establish cardiovascular care. He has a pertinent history as succinctly described above. Since last seen by cardiology in [place], he has been doing well. Excellent activity is without angina, untoward dyspnea, LH. He sometimes develops a foggy feeling in his head which he describes as lightheadedness, though not presyncope. He does also have orthostasis on occasion Bp well control Objective: Patient Vitals for the past 24 hrs: Pulse BP 03/01/24 1547 65 111/55 Gen: pleasant male in NAD Cor: rrr, s1/s2 of nl character and amplitude, expected murmurg Estimated RAP not elevated. Carotids without bruit. Pulm: CTAB. Normal diaphragmatic movement without use of accessory muscles EKG: nsr via NSIVCD (left bundloid) TTE: reviewed, as per problem list (08/2022, post-PADILLA). unremarkable Assessment and Plan: ASCVD (arteriosclerotic cardiovascular disease) No angina per history. - Anti-Thrombosis: asa 81 - Anti- Lipemic: crestor 5 - Anti- Anginals: GTN PRN, norvasc 10, toprol 25 Nonrheumatic aortic valve stenosis No issues per history nor exam. - ASA 81 QD - Because the valve is not mechanical, VKA is not required for this indication - Anti-biotic prophylaxis required as directed against expected bacterial varsha of at-risk procedures. Hyperpiesia Well controlled on current regimen. I think he can stop the hctz without causing his BP to rise to HTN level. If continues with orthostatic LH, can consider decreasing amlopdipine - Lotrel 10/40 RTC 12 months Leif Paniagua MD documented in this encounter Miscellaneous Notes * Assessment & Plan Note - Leif Paniagua MD - 03/01/2024 4:18 PM EDT Associated Problem(s): Hyperpiesia Well controlled on current regimen. I think he can stop the hctz without causing his BP to rise to HTN level. If continues with orthostatic LH, can consider decreasing amlopdipine - Lotrel * Assessment & Plan Note - Leif Paniagua MD - 03/01/2024 3:34 PM EDT Associated Problem(s): Nonrheumatic aortic valve stenosis No issues per history nor exam. - ASA 81 QD - Because the valve is not mechanical, VKA is not required for this indication - Anti-biotic prophylaxis required as directed against expected bacterial varsha of at-risk procedures. * Assessment & Plan Note - Leif Paniagua MD - 03/01/2024 3:34 PM EDT Associated Problem(s): ASCVD (arteriosclerotic cardiovascular disease) No angina per history. - Anti-Thrombosis: asa 81 - Anti- Lipemic: crestor 5 - Anti- Anginals: GTN PRN, norvasc 10, toprol 25 documented in this encounter Plan of Treatment Upcoming Encounters Date Type Department Care Team (Late st Contact Info) Description 04/11/2024 9:00 AM EDT Office Visit Dermatology at [address] [phone] Mark Ballestreos MD [address] [place] [address], [facility] [place], [place] [id number] 06/09/2024 3:15 PM EDT Office Visit Dermatology at [address] [phone] Mark Ballesteros MD [address] [place] [address], [place] [address] 03/01/2025 11:00 AM EDT Office Visit Cardiology at [address] [place] [address] Leif Paniagua MD [facility] [place] [address] documented as of this encounter Visit Diagnoses Diagnosis ASCVD (arteriosclerotic cardiovascular disease) Unspecified cardiovascular disease Nonrheumatic aortic valve stenosis Aortic valve disorders Hyperpiesia Unspecified essential hypertension documented in this encounter Care Teams Card Cutter Helper Relationship Specialty Start Date End Date Brando Weathers MD [address] [place] [address] PCP - General Internal Medicine 03/01/24 documented as of this encounter
--- OUTSIDE RECORDS SUMMARY | 2024-04-08 14:45 | XMS_ITS | Encounter Summary ---
[place] [address] Care Team Providers Care Sales Specialist Name Role Phone Gavino Mccollum MD Primary Care Provider [phone] Encounter Details Date Type Department Care Team (Late st Contact Info) Description 01/27/2023 Abstract Cardiology at [address] [phone] Yuliya Chowdhury RN Social History Tobacco Use Types Packs/Day Years [...] 9:00 AM EDT Office Visit Dermatology at [address] [phone] Mark Ballesteros MD [address] [place] [address] 06/09/2024 3:15 PM EDT Office Visit Dermatology at [address] [phone] Mark Ballesteros MD [address] [place] [address] 03/01/2025 11:00 AM EDT Office Visit Cardiology at [address] [phone] Leif Paniagua MD [facility] [place] [address] documented as of this encounter Visit Diagnoses Not on filedocumented in this encounter Care Teams Sales Specialist Relationship Specialty Start Date End Date Gavino Mccollum MD [address] [place] [address] PCP - General Dermatology 03/02/20 02/29/24 documented as of this encounter
--- OUTSIDE RECORDS SUMMARY | 2024-04-08 14:45 | XMS_ITS | Encounter Summary ---
Author Organization [facility] Address [facility] [place] [address] Care Team Providers Care Signal Manager Name Role Phone Brando Weathers MD Primary Care Provider [phone] Encounter Details Date Type Department Care Team (Latest Contact Info) Description 03/01/2024 Travel Social History Tobacco Use Types Packs/Day [...] 9:00 AM EDT Office Visit Dermatology at [address] [phone] Mark Ballesteros MD [address] [place] [address] [place] [address] 06/09/2024 3:15 PM EDT Office Visit Dermatology at [address] [phone] Mark Ballesteros MD [address] [place] [address] 03/01/2025 11:00 AM EDT Office Visit Cardiology at [address] [phone] Leif Paniagua MD [facility] [place] [address] documented as of this encounter Visit Diagnoses Not on filedocumented in this encounter Care Teams Signal Manager Relationship Specialty Start Date End Date Brando Weathers MD [address] [place] [address] PCP - General Internal Medicine 03/01/24 documented as of this encounter
--- OUTSIDE RECORDS SUMMARY | 2024-04-08 14:45 | XMS_ITS | Encounter Summary ---
[place] [address] Care Team Providers Care Cigar Binder Name Role Phone Gavino Mccollum MD Primary Care Provider [phone] Encounter Details Date Type Department Care Team (Late Contact Info) Description 02/26/2024 Telephone Dermatology at [address] [place] [address] Flaca Nicole RN Social History Tobacco Use Types Packs/Day Years Used Date Smoking Tobacco: Never Smokeless Tobacco: Never Sex and Gender Information Value Date Recorded Sex Assigned at Not on file Gender Identity Not on file Sexual Orientation Not on file documented as of this encounter Miscellaneous Notes * Telephone Encounter - Flaca Nicole RN - 02/26/2024 3:01 PM EDT Patient called and informed of his pathology report. Patient had 2 shave biopsies on 02/19/2024. Specimen A: shave biopsy right frontal pariental scalp. Diagnosis: squamous cell carcinoma. Specimen B: shave biopsy right upper chest. Diagnosis: sun damage Per Dr. Ballesteros's recommendation patient to return to the clinic for a 30 min appointment for a shave C&D of the scalp and LL2 of chest site. Patient informed of Dr. Ballesteros's recommendation, he stated that he understood, and scheduled an appointment on 04/11/2024. documented in this encounter Plan of Treatment Upcoming Encounters Date Type Department Care Team (Late Contact Info) Description 04/11/2024 9:00 AM EDT Office Visit Dermatology at [address] [phone] Mark Ballesteros MD [address] [place] [address], [place], [place] [id number] 06/09/2024 3:15 PM EDT Office Visit Dermatology at [address] [address] Mark Ballesteros MD [address] [place] [address], [place] [address] 03/01/2025 11:00 AM EDT Office Visit Cardiology at [address] [phone] Leif Paniagua MD [facility] [place] [address] documented as of this encounter Visit Diagnoses Not on filedocumented in this encounter Care Teams Cigar Binder Relationship Specialty Start Date End Date Gavino Mccollum MD [address] [place] [address] PCP - General Dermatology 03/02/20 02/29/24 documented as of this encounter
--- OUTSIDE RECORDS SUMMARY | 2024-04-08 14:45 | XMS_ITS | Encounter Summary ---
[place] [address] Care Team Providers Care Shelter Director Name Role Phone Gavino Mccollum MD Primary Care Provider [phone] Reason for Visit * Reason Comments Suture / Staple Removal Encounter Details Date Type Department Care Team (Late st Contact Info) Description 02/19/2024 9:45 AM EDT Office Visit Dermatology at [address] [phone] Mark Ballesteros MD [address], [place] [address] Combes's disease; AK (actinic keratosis); History of SCC (squamous cell carcinoma) of skin Social History Tobacco Use Types Packs/Day Years Used Date Smoking Tobacco: Never Smokeless Tobacco: Never Sex and Gender Information Value Date Recorded Sex Assigned at Not on file Gender Identity Not on file Sexual Orientation Not on file documented as of this encounter Progress Notes * Mark Ballesteros MD - 02/19/2024 9:45 AM EDT Problem: 1. Follow-up for suture removal 2. Status post PDT therapy October 2013 3. History of multiple nonmelanoma cutaneous malignancies in [place] 4. History BCCA, sclerosing type, mid back [...] Breslow depth right upper back July 2021. 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 History of Mohs surgery [place] for left cheek January 2024 Kike follows up for suture removal. He had Mohs surgery for an SCC in [place] on his left cheek on January 24. Physical examination reveals a pleasant 83-year-old gentleman with good healing of the left cheek site. He has areas of concern for possible additional SCCA's on the right frontal parietal scalp and 1 on his right presternal chest. Assessment plan: Status post Mohs surgery for left cheek SCCA 1. Sutures removed 2. January wound care instructions Rule out SCC is new sites right frontal parietal scalp and right upper chest 1. Today shave biopsies obtained from both sites 2. Will notify patient of the biopsy results 3. If positive would recommend Mohs surgery at [facility]. 4. Will plan total-body skin checkup in May. CC: Gavino Mccollum MD documented in this encounter Plan of Treatment Upcoming Encounters Date Type Department Care Team (Late st Contact Info) Description 04/11/2024 9:00 AM EDT Office Visit Dermatology at [address] [phone] Mark Ballesteros MD [address] [place] [address] [place] [address] 06/09/2024 3:15 PM EDT Office Visit Dermatology at [address] [phone] Mark Ballesteros MD [address] [place] [address] 03/01/2025 11:00 AM EDT Office Visit Cardiology at [address] [phone] Leif Paniagua MD [facility] [place] [address] documented as of this encounter Visit Diagnoses Diagnosis Combes's disease Other specified dermatoses AK (actinic keratosis) Actinic keratosis History of SCC (squamous cell carcinoma) of skin Personal history of other malignant neoplasm of skin documented in this encounter Care Teams Shelter Director Relationship Specialty Start Date End Date Gavino Mccollum MD [address] [place] [address] PCP - General Dermatology 03/02/20 02/29/24 documented as of this encounter
--- OUTSIDE RECORDS SUMMARY | 2024-04-08 14:45 | XMS_ITS | Encounter Summary ---
[place] [address] Care Team Providers Care Recreation Program Specialist Name Role Phone Gavino Mccollum MD Primary Care Provider [phone] Encounter Details Date Type Department Care Team (Late st Contact Info) Description 02/16/2024 Abstract Cardiology at [address] [phone] Maliha Douglass RN Nonrheumatic aortic valve stenosis Social History Tobacco Use Types Packs/Day Years [...] 9:00 AM EDT Office Visit Dermatology at [address] [phone] Mark Ballesteros MD [address] [place] [address] 06/09/2024 3:15 PM EDT Office Visit Dermatology at [address] [phone] Mark Ballesteros MD [address] [place] [address] 03/01/2025 11:00 AM EDT Office Visit Cardiology at [address] [phone] Leif Paniagua MD [facility] [place] [address] documented as of this encounter Visit Diagnoses Diagnosis Nonrheumatic aortic valve stenosis Aortic valve disorders documented in this encounter Care Teams Recreation Program Specialist Relationship Specialty Start Date End Date Gavino Mccollum MD [address] [facility] [place] [address] PCP - General Dermatology 03/02/20 02/29/24 documented as of this encounter
--- OUTSIDE RECORDS SUMMARY | 2024-04-08 14:45 | XMS_ITS | Encounter Summary ---
[place] [address] Care Team Providers Care Senior Investment Manager Name Role Phone Gavino Mccollum MD Primary Care Provider [phone] Encounter Details Date Type Department Care Team (Late st Contact Info) Description 06/18/2023 Refill Dermatology at [address] [phone] Sierra Alarcon LPN Social History Tobacco Use Types Packs/Day Years Used Date Smoking Tobacco: Never Smokeless Tobacco: Never Sex and Gender Information Value Date Recorded Sex Assigned at Not on file Gender Identity Not on file Sexual Orientation Not on file documented as of this encounter Miscellaneous Notes * Telephone Encounter - Sierra Alarcon LPN - 06/18/2023 9:12 AM EDT . documented in this encounter Plan of Treatment Upcoming Encounters Date Type Department Care Team (Late Contact Info) Description 04/11/2024 9:00 AM EDT Office Visit Dermatology at [address] [phone] Mark Ballesteros MD [address] [place] [address], [facility] DERMATOLOGY [place], [place] [address] 06/09/2024 3:15 PM EDT Office Visit Dermatology at [address] [phone] Mark Ballesteros MD [address] [place] [address], AD[place] [address] 03/01/2025 11:00 AM EDT Office Visit Cardiology at [place] [address] [facility] [place] [phone] Leif Paniagua MD [facility] [place] [address] documented as of this encounter Visit Diagnoses Not on filedocumented in this encounter Care Teams Senior Investment Manager Relationship Specialty Start Date End Date Gavino Mccollum MD [address] [place], [place] [phone] PCP - General Dermatology 03/02/20 02/29/24 documented as of this encounter
--- OUTSIDE RECORDS SUMMARY | 2024-04-08 14:45 | XMS_ITS | Encounter Summary ---
Author Organization [facility] [place] [address] Care Team Providers Care Cable Way Operator Name Role Phone Gavino Mccollum MD Primary Care Provider [phone] Encounter Details Date Type Department Care Team (Latest Contact Info) Description 02/19/2024 9:56 AM EDT - 02/19/2024 11:59 PM EDT Hospital [place] [phone] Discharge Disposition: Home Social History Tobacco Use Types Packs/Day Years Used Date Smoking Tobacco: Never Smokeless Tobacco: Never Sex and Gender Information Value Date Recorded Sex Assigned at Not on file Gender Identity Not on file Sexual Orientation Not on file documented as of this encounter Medications at Time of Discharge Medication Sig Dispensed Refills Start Date End Date human papillomavirus 9-valent, PF, (Gardasil 9, PF,) 0.5 mL Suspension Inject 0.5 mLs into the muscle once. triamcinolone (Kenalog) 0.1 % Cream Apply twice daily to itchy areas on chest and back as needed 453.6 g 1 06/18/2023 ixekizumab (Taltz Autoinjector, 2 Pack,) 80 mg/mL Auto-Injector Inject subcutaneously. 10/09/2022 amLODIPine-benazepriL (Lotrel) 10-40 mg capsule Take 1 capsule by mouth daily. doxazosin (CARDURA) 2 mg Tablet Take 1 tablet by mouth nightly. 09/27/2021 potassium chloride ER (K-Dur/Klor-Con) 10 mEq Tablet Sustained Release TAKE ONE TABLET BY MOUTH TWICE A DAY 03/09/2021 aspirin EC 81 mg Tablet, Delayed Release (E.C.) TAKE ONE TABLET BY MOUTH DAILY 05/25/2006 rosuvastatin (Crestor) 5 mg Tablet Take 5 mg by mouth every evening. 11/14/2020 ketoconazole (NIZORAL) 2 % Shampoo MIX ENTIRE BOTTLE WITH CLOBETASOL SOLUTION AND USE TO WASH ONE TIME DAILY . LEAVE ON FOR 5 10 MINUTES THEN RINSE OFF 05/05/2020 clopidogreL (Plavix) 75 mg tablet Take 1 tablet by mouth daily. 10/09/2022 03/01/2024 hydrochlorothiazide (HYDRODIURIL) 25 mg Tablet Take 25 mg by mouth daily. 03/01/2024 mupirocin (Bactroban) 2 % Ointment 04/21/2023 03/01/2024 acetaminophen (Tylenol) 325 mg Tablet Take 650 mg by mouth. 09/27/202103/01 hydrOXYchloroQUINE (Plaquenil) 200 mg Tablet Take 1 tablet by mouth 2 times daily. 03/13/2021 03/01/2024 alclometasone (ACLOVATE) 0.05 % Cream 01/02/2021 03/01/2024 acyclovir (Zovirax) 800 mg Tablet 01/23/2020 03/01/2024 clobetasoL (TEMOVATE) 0.05 % Solution MIX ENTIRE BOTTLE WITH KETOCONAZOLE SHAMPOO AND USE TO WASH ONE TIME DAILY. LEAVE ON FOR 5 TO 10 MINUTES THEN RINSE OFF 05/04/2020 03/01/2024 clotrimazole-betamethaso ne (LOTRISONE) 1-0.05 % Cream 01/31/2020 03/01/2024 diclofenac (VOLTAREN) 1 % Gel 10/20/2018 03/01/2024 metoprolol succinate (TOPROL-XL) 25 mg Tablet Sustained Release 24 hr Take 25 mg by mouth. 03/01/2024 documented as of this encounter Plan of Treatment Upcoming Encounters Date Type Department Care Team (Late st Contact Info) Description 04/11/2024 9:00 AM EDT Office Visit Dermatology at [place] [address] [facility] [place] [address] Mark Ballesteros MD [address] [facility], ADINA [place] [address] 06/09/2024 3:15 PM EDT Office Visit Dermatology at [place] [address] [facility] [place] [address] Mark Ballesteros MD [address] [facility], ADINA A DERMATOLOGY [place], [place] [phone] 03/01/2025 11:00 AM EDT Office Visit Cardiology at [place] [address] [facility] [place] [address] Leif Paniagua MD [facility] [place] [address] documented as of this encounter Procedures Procedure Name Priority Date/Time Associated Diagnosis Comments SURGICAL PATHOLOGY REPORT Routine 02/19/2024 10:35 AM EDT documented in this encounter Results * (ABNORMAL) Surgical Pathology Report (02/19/2024 10:35 AM EDT) FINAL DIAGNOSIS (AP) [id number] ? Location: [facility] The signing pathologist has [...] Verified: ??02/24/2024 17:24 ??Dermatopatholo gist Performed at: ??-[facility] Dept. of Pathology, [place] [id number] Hand Flatwork Finisher: Gordo Burt MD, FCAP, ??CLIA Certificate: [id number] DISCUSSION THIS RESULT REQUIRES PHYSICIAN/A.P.P. FOLLOW UP [...] ?B2: ??Body ??SM(A) 02/24/2024 5:24 PM EDT [facility] 02/19/2024 10:3 5 AM EDT Mark Ballesteros MD PATHOLOGY/CYTOLOGY O NEFTALI Performing Organization Address City/State/[facility] Co de Phone Number [facility] [place] [address] documented in this encounter Visit Diagnoses Not on filedocumented in this encounter Care Teams Cable Way Operator Relationship Specialty Start Date End Date Gavino Mccollum MD [address] [place] [address] PCP - General Dermatology 03/02/20 02/29/24 documented as of this encounter
--- OUTSIDE RECORDS SUMMARY | 2024-04-08 14:46 | XMS_ITS | Encounter Summary ---
[place] [address] Care Team Providers Care Senior Marketing Coordinator Name Role Phone Joaquín Huber MD Primary Care Provider [phone] Reason for Visit * Reason Comments Follow-up Encounter Details Date Type Department Care Team (Late st Contact Info) Description 04/12/2015 2:15 PM EDT Office Visit Dermatology at [address] [place] [address] Mark Ballesteros MD [address] [place] [address] RD, [place] [address] [place] (actinic keratosis); History of SCC (squamous cell carcinoma) of skin Discharge Disposition: Home Social History Tobacco Use Types Packs/Day Years Used Date Smoking Tobacco: Unknown Sex and Gender Information Value Date Recorded Sex Assigned at Not on file Gender Identity Not on file Sexual Orientation Not on file documented as of this encounter Patient Instructions * Patient Instructions* Flora Nascimento LPN - 04/12/2015 2:30 PM EDT Images from the original note were not included. [facility] Actinic Keratosis: After Your Visit Your Care Instructions Actinic keratosis is a skin growth caused by sun damage. It can turn into skin cancer, but this isn't common. Actinic keratoses, also called solar keratoses, are small red, brown, or skin-colored scaly patches. They are most common on the face, neck, hands, and forearms. Your doctor can remove these growths by freezing or scraping them off or by putting medicines on them. Follow-up care is a rodriguez part of your treatment and safety. Be sure to make and go to all appointments, and call your doctor if you are having problems. It's also a good idea to know your test resultsand keep a list of the medicines you take. How can you care for yourself at home? ?? If your doctor removes the growth, clean the area with soap and water 2 times a day unless your doctor gives you different instructions. Don't use hydrogen peroxide or alcohol, which can slow healing. ?? You may cover the wound with a thin layer of petroleum jelly, such as Vaseline, and a nonstick bandage. To prevent actinic keratosis ?? Always wear sunscreen on exposed skin. Make sure the sunscreen blocks ultraviolet rays (both UVAand UVB) and has a sun protection factor (SPF) of at least 15. Use it every day, even when it is cloudy. Some doctors may recommend a higher SPF, such as 30. ?? Wear long sleeves, a hat, and pants if you are going to be outdoors for a long time. ?? Avoid the sun between 10 a.m. and 4 p.m., the peak time for UV rays. ?? Do not use tanning booths or sunlamps. When should you call for help? Watch closely for changes in your health, and be sure to contact your doctor if: ?? The areas that were treated are red, drain pus, or have red streaks leading from them. ?? You see other growths that do not go away. ?? You do not get better as expected. Where can you learn more? Visit our health information library at http://Dropmysite/healthinfo You can also view health information on [employer]Cred[employer], your personal patient account. Log in or sign up today. Enter L364 in the search box to learn more about Actinic Keratosis: After Your Visit. ?? [id number] [employer], [employer]. Care instructions adapted under license by [facility]. This care instruction is for use with your licensed healthcare professional. If you have questions about a medical condition or this instruction, always ask your healthcare professional. [employer] disclaims any warranty or liability for your use of this information. Content Version: 10.4.412521; Current as of: April 13, 2014 [facility] Actinic Keratosis: After Your Visit Your Care Instructions Actinic keratosis is a skin growth caused by sun damage. It can turn into skin cancer, but this isn't common. Actinic keratoses, also called solar keratoses, are small red, brown, or skin-colored scaly patches. They are most common on the face, neck, hands, and forearms. Your doctor can remove these growths by freezing or scraping them off or by putting medicines on them. Follow-up care is a rodriguez part of your treatment and safety. Be sure to make and go to all appointments, and call your doctor if you are having problems. It's also a good idea to know your test resultsand keep a list of the medicines you take. How can you care for yourself at home? ?? If your doctor removes the growth, clean the area with soap and water 2 times a day unless your doctor gives you different instructions. Don't use hydrogen peroxide or alcohol, which can slow healing. ?? You may cover the wound with a thin layer of petroleum jelly, such as Vaseline, and a nonstick bandage. To prevent actinic keratosis ?? Always wear sunscreen on exposed skin. Make sure the sunscreen blocks ultraviolet rays (both UVAand UVB) and has a sun protection factor (SPF) of at least 15. Use it every day, even when it is cloudy. Some doctors may recommend a higher SPF, such as 30. ?? Wear long sleeves, a hat, and pants if you are going to be outdoors for a long time. ?? Avoid the sun between 10 a.m. and 4 p.m., the peak time for UV rays. ?? Do not use tanning booths or sunlamps. When should you call for help? Watch closely for changes in your health, and be sure to contact your doctor if: ?? The areas that were treated are red, drain pus, or have red streaks leading from them. ?? You see other growths that do not go away. ?? You do not get better as expected. Where can you learn more? Visit our health information library at http://Dropmysite/Manjrasoftinfo You can also view health information on [email or web address], your personal patient account. Log in or sign up today. Enter L364 in the search box to learn more about Actinic Keratosis: After Your Visit. ?? [id number] [employer]. Care instructions adapted under license by [facility]. This care instruction is for use with your licensed healthcare professional. If you have questions about a medical condition or this instruction, always ask your healthcare professional. [employer] disclaims any warranty or liability for your use of this information. Content Version: 10.4.859431; Current as of: April 13, 2014 documented in this encounter Progress Notes * Mark Ballesteros MD - 04/12/2015 2:43 PM EDT Problems: 1. Skin check. 2. Status post PDT therapy, October 2013. 3. History of SCCA of the KA type, left ventral forearm, treated with Mohs, three stages, in January 2014. 4. History of multiple nonmelanoma cutaneous malignancies. Kike follows up and was recently diagnosed in [place] with [place] disease of the upper nasal bridge. His hog feeder, Dr. Mccollum suggested surgery, but because of triple bypass, this was postponed, and LN2 instead was aggressively applied to the site. The patient presents today for evaluation of this biopsy site, as well as for a repeat skin checkup. He and his , Zahira, just got back from a trip to [place] and [place] [facility] Physical examination reveals a pleasant, 74-year-old gentleman who has a very well-healed shave biopsy site on the upper bridge of his nose. There is no evidence of recurrent England disease at this location. He does have, however, actinics on the left nasal sidewall, the right and left temples, and on his cheeks; a total of six sites are noted. There is no evidence of recurrent SCCA on the left ventral forearm where he had Mohs surgery in January 2014. Assessment and Plan: 1. Actinic keratoses. a. LN2 times two applied to each of six sites. 2. History of England disease, bridge of nose, December 2014. a. No evidence of recurrence. b. I would not recommend further treatment or biopsy at this time. I will see the patient again on June 04, 2015, for repeat check of this site. COPY: Gavino Mccollum M.D. documented in this encounter Plan of Treatment Upcoming Encounters Date Type Department Care Team (Late st Contact Info) Description 04/11/2024 9:00 AM EDT Office Visit Dermatology at [address] [phone] Mark Ballesteros MD [address] [place] [address], [place], [place] [phone] 06/09/2024 3:15 PM EDT Office Visit Dermatology at [address] [phone] Mark Ballesteros MD [address] [place] [address], [place] [address] 03/01/2025 11:00 AM EDT Office Visit Cardiology at [address] [phone] Leif Paniagua MD [facility] [place] [address] documented as of this encounter Visit Diagnoses Diagnosis AK (actinic keratosis) Actinic keratosis History of SCC (squamous cell carcinoma) of skin Personal history of other malignant neoplasm of skin documented in this encounter Care Teams Senior Marketing Coordinator Relationship Specialty Start Date End Date Joaquín Huber MD [address] [place] [address] PCP - General 04/12/15 06/01/17 documented as of this encounter
--- OUTSIDE RECORDS SUMMARY | 2024-04-08 14:46 | XMS_ITS | Encounter Summary ---
[place] [address] Care Team Providers Care Binder Layer Name Role Phone Gavino Mccollum MD Primary Care Provider Reason for Visit * Reason Comments Skin Check Encounter Details Date Type Department Care Team (Late st Contact Info) Description 02/19/2021 10:00 AM EDT Office Visit Dermatology at [address] [phone] Mark Ballesteros MD [address] [facility] [place] [address] History of SCC (squamous cell carcinoma) of skin; AK (actinic keratosis) Social History Tobacco Use Types Packs/Day Years Used Date Smoking Tobacco: Never Smokeless Tobacco: Never Sex and Gender Information Value Date Recorded Sex Assigned at Not on file Gender Identity Not on file Sexual Orientation Not on file documented as of this encounter Progress Notes * Mark Ballesteros MD - 02/19/2021 10:00 AM EDT Problem: 1. ??Repeat skin checkup 2. ??Status post PDT therapy??October??2013 3. ??History of multiple nonmelanoma cutaneous malignancies??in [place] 4. 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 ??Status post courses of 5-FU / TAC May 2018, and May 2020 Kike follows up for a repeat skin checkup. I last saw him in January before he headed down to [place]. He saw his line controller while there and a number of biopsies were performed fortunately all of which came back showing other actinic's or benign skin lesions. He has noted that he has numerous newactinic's are developing on the scalp and face today. He is using a 50-50 mix of ketoconazole 2% shampoo with clobetasol scalp solution applying this to this his scalp on on a daily basis for severalminutes then washing off. He is also using alclometasone dipropionate cream to his face on a daily basis and has been doing so for the last month. I would recommend that he discontinue the cream. Physical examination reveals a pleasant 80-year-old gentleman who has diffuse actinic damage of thebalding parietal scalp, also on his face and cheeks. Fortunately examination of the chest the back the hands the arms from the thighs and calves otherwise benign. Assessment and assessment and plan: Actinic keratoses facial scalp and ears. 1. Begin 5 fluorouracil 5% cream applying once daily to face and scalp for the first 7 days of eachof the next 3 months. Dispense 40 g with 0 refills 2. There will be no prescription for triamcinolone 3. Return to clinic in May for repeat check. History of multiple nonmelanoma cutaneous malignancies 1. No evidence of any cutaneous malignancy on examination today. CC: Gavino Mccollum MD documented in this encounter Plan of Treatment Upcoming Encounters Date Type Department Care Team (Late st Contact Info) Description 04/11/2024 9:00 AM EDT Office Visit Dermatology at [address] [phone] Mark Ballesteros MD [address] [place] [address], [facility] [place] [address] 06/09/2024 3:15 PM EDT Office Visit Dermatology at [address] [phone] Mark Ballesteros MD [address] [place] [address], [place] [address] 03/01/2025 11:00 AM EDT Office Visit Cardiology at [address] [place] [address] Leif Paniagua MD [facility] [place] [address] documented as of this encounter Visit Diagnoses Diagnosis History of SCC (squamous cell carcinoma) of skin Personal history of other malignant neoplasm of skin AK (actinic keratosis) Actinic keratosis documented in this encounter Care Teams Binder Layer Relationship Specialty Start Date End Date Gavino Mccollum MD [address] [facility] [address] PCP - General Dermatology 03/02/20 02/29/24 documented as of this encounter
--- OUTSIDE RECORDS SUMMARY | 2024-04-08 14:46 | XMS_ITS ---
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 Active 01022648 7 Problem 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 Active 5007 Problem Psoriasis 696.1 Active 1932572 Problem Arthropathic psoriasis, unspecified L40.50 Active 46235629 Problem HTN 401.9 Active 49634179 Problem Gouty arthritis NOS 274.9 Active 4844 0001 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 691089679 Problem Spondylosis without myelopathy or radiculopathy, cervical region M47.812 Active 250352573 Problem Essential (primary) hypertension I10 Active 10775451 ALLERGIES No Known Allergies ENCOUNTERS Encounter Location Date Diagnosis [facility] [address] [place] [address] Jun, [facility] [address] [place] [address] Nov, Arthropathic psoriasis, unspecified L40.50 ; 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 ; Essential (primary) hypertension I10 ; Spondylosis without myelopathy or radiculopathy, cervical region M47.812 and 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 [facility] [address] [address] Jul, Psoriatic arthritis 696.0 ; 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 ; Effusion of knee joint 719.06 ; Cervical spondylosis 720.9 ; Joint pain, knee 719.46 ; Psoriasis 696.1 ; HTN 401.9 and MCC use of medications V58.69 [facility] [address] [address] Mar, [facility] [address] [address] Mar, 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 ; Hemarthrosis of lower leg 719.16 ; Psoriatic arthritis 696.0 ; Cervical spondylosis 720.9 ; Psoriasis 696.1 ; HTN 401.9 ; Myalgias 729.1 ; MCC use of medications V58.69 ; Effusion of knee joint 719.06 and Joint pain, knee 719.46 [facility] [address] [address] Feb, [facility] [address] [address] Dec, [facility] [address] [address] Jun, [facility] [address] [address] May, [facility] [address] [address] May, [facility] [address] [address] Apr, Psoriatic arthritis 696.0 ; Cervical spondylosis 720.9 ; Psoriasis 696.1 ; HTN 401.9 ; Myalgias 729.1 ; 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 and MCC use of medications V58.69 [facility] [address] [place] [address] Mar, [facility] [address] [address] January, Psoriatic arthritis 696.0 ; Cervical spondylosis 720.9 ; Psoriasis 696.1 ; HTN 401.9 ; Myalgias 729.1 ; 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 ; MCC use of medications V58.69 and Hyperglycemia 790.6 [facility] [address] [place] [address] Nov, [facility] [address] [place], [place] [address] Oct, [facility] [address] [address] Sep, [facility] [address] [address] Sep, Psoriatic arthritis 696.0 ; Cervical spondylosis 720.9 ; Psoriasis 696.1 ; HTN 401.9 ; Myalgias 729.1 ; 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 and oysterman use of medications V58.69 [facility] [address] [address] Jul, [facility] [address] [address] Jun, [facility] [address] [address] Apr, [facility] [address] [place] [address] Apr, [facility] [address] [address] Feb, [facility] [address] [address] January, [facility] [address] [address] Dec, [facility] [address] [address] Dec, [facility] [address] [place] [address] 27 Nov, 2009 [facility] [address] [place] [address] 19 Nov, 2009 [facility] [address] [place] [address] 17 Nov, 2009 Psoriatic arthritis 696.0 and oysterman use of medications V58.69 [facility] [address] [place] [address] 11 Nov, 2009 Psoriatic arthritis 696.0 ; Cervical spondylosis 720.9 ; Psoriasis 696.1 ; HTN 401.9 ; oysterman use of medications V58.69 and Myalgias 729.1 [facility] [address] [place] [address] Nov, [facility] [address] [place] [address] Sep, [facility] [address] [place] [address] Sep, [facility] [address] [place] [address] 14 Sep, 2009 Psoriatic arthritis 696.0 ; Pneumonia NOS 486 ; Cervical spondylosis 720.9 ; Psoriasis 696.1 ; HTN 401.9 ; oysterman use of medications V58.69 and Myalgias 729.1 [facility] [address] [place] [address] Aug, Psoriatic arthritis 696.0 ; Pneumonia NOS 486 ; Cervical spondylosis 720.9 ; Psoriasis 696.1 ; HTN 401.9 and MCC use of medications V58.69 [facility] [address] [place] [address] Aug, [facility] [address] [place] [address] Aug, [facility] [address] [place] [address] Jul, Psoriatic arthritis 696.0 ; Cervical spondylosis 720.9 ; Psoriasis 696.1 ; HTN 401.9 and oysterman use of medications V58.69 [facility] [address] [place] [address] 25 Jul, 2009 oysterman use of medications V58.69 and Psoriatic arthritis 696.0 [facility] [address] [place] [address] 10 Jul, 2009 [facility] [address] [place] [address] 04 Jul, 2009 [facility] [address] [place] [address] 24 May, 2009 Psoriatic arthritis 696.0 ; Cervical spondylosis 720.9 ; Psoriasis 696.1 ; HTN 401.9 and MCC use of medications V58.69 [facility] [address] [address] 15 May, 2009 [facility] [address] [place] [address] 09 May, 2009 oysterman use of medications V58.69 and Psoriatic arthritis 696.0 [facility] [address] [address] Mar, [facility] [address] [address] Feb, Psoriatic arthritis 696.0 ; Cervical spondylosis 720.9 ; Psoriasis 696.1 ; HTN 401.9 and oysterman use of medications V58.69 [facility] [address] [address] Feb, [facility] [address] [address] 14 Jan, 2009 oysterman use of medications V58.69 and Psoriatic arthritis 696.0 [facility] [address] [address] 07 Dec, 2008 Psoriatic arthritis 696.0 ; Cervical spondylosis 720.9 ; Psoriasis 696.1 ; HTN 401.9 ; oysterman use of medications V58.69 and Rash 782.1 [facility] [address] [address] Nov, [facility] [address] [address] Sep, MCC use of medications V58.69 and Psoriatic arthritis 696.0 [facility] [address] [address] Sep, Psoriatic arthritis 696.0 ; Cervical spondylosis 720.9 ; Psoriasis 696.1 ; HTN 401.9 and MCC use of medications V58.69 [facility] [address] [address] Jul, [facility] [address] [address] Jul, Psoriatic arthritis 696.0 ; Cervical spondylosis 720.9 ; Psoriasis 696.1 ; HTN 401.9 and MCC use of medications V58.69 [facility] [address] [address] May, oysterman use of medications V58.69 [facility] [address] [address] Apr, Psoriatic arthritis 696.0 ; Cervical spondylosis 720.9 ; Psoriasis 696.1 ; HTN 401.9 and oysterman use of medications V58.69 [facility] [address] [address] Mar, [facility] [address] [address] Feb, Sinusitis 473.9 ; Psoriatic arthritis 696.0 ; Psoriasis 696.1 ; HTN 401.9 and MCC use of medications V58.69 [facility] [address] [address] 04 Feb, 2008 Psoriatic arthritis 696.0 ; Sinusitis 473.9 ; Psoriasis 696.1 ; HTN 401.9 and oysterman use of medications V58.69 [facility] [address] [address] Feb, [facility] [address] [place] [address] January, [facility] [address] [place] [address] Dec, Psoriatic arthritis 696.0 ; HTN 401.9 ; MCC use of medications V58.69 and Psoriasis 696.1 [facility] [address] [place] [address] Dec, [facility] [address] [place] [address] Dec, [facility] [address] [place] [address] Nov, [facility] [address] [address] Nov, Psoriatic arthritis 696.0 ; HTN 401.9 ; MCC use of medications V58.69 and Psoriasis 696.1 IMMUNIZATIONS Vaccine Route Administration Date Status Influenza IM Intramuscular Jun 07, 2009 Administer ed SOCIAL HISTORY Never Assessed REASON FOR REFERRAL FUNCTIONAL STATUS PLAN OF CARE Activity Details Follow Up June Reason: Pending Test Uric acid Pending Test CELL COUNT AND DIFF, SYNOVIAL FLUID Pending Test Basic Metabolic Pane l (BMP) Pending Test CBC Pending Test Comp Metabolic Panel (CMP) Pending Test CBC Pending Test CPK Pending Test Comp Metabolic Panel (CMP) Pending Test CRP (non-cardiac) Pending Test ESR Pending Test CBC Pending Test CMP Pending Test CBC Pending Test CMP Pending Test CBC Pending Test CMP Pending Test CMP and CBC Pending Test CBC with diff VITAL SIGNS Weight 176 lbs 2017-12-08 Weight 174 lbs 2012-08-03 Weight 172 lbs 2012-04-06 Weight 172 lbs 2011-05-05 Weight 177 lbs 2011-01-13 Weight 180 lbs 2010-09-30 Weight 172 lbs 2009-11-22 Weight 172 lbs 2009-09-27 Weight 174 lbs 2009-08-31 Weight 172 lbs 2009-08-13 Weight 175 lbs 2009-06-07 Weight N/A lbs 2009-02-22 Weight N/A lbs 2008-12-19 Weight N/A lbs 2008-10-04 Weight N/A lbs 2008-07-27 Weight N/A lbs 2008-05-11 Weight N/A lbs 2008-02-24 Weight N/A lbs 2008-02-16 Weight N/A lbs 2008-01-05 Weight N/A lbs 2007-11-23 Temperature 97.9 degrees Fahrenheit Temperature 98.3 degrees Fahrenheit Temperature 97.7 degrees Fahrenheit Temperature N/A degrees Fahrenheit 2009-03-14 5 Temperature N/A degrees Fahrenheit 2009-01-12 4 Temperature N/A degrees Fahrenheit 2008-11-12 9 Temperature N/A degrees Fahrenheit 4 Temperature N/A degrees Fahrenheit 2007-12-15 3 Temperature N/A degrees Fahrenheit 2007-11-13 1 Oximetry 16 % 2009-08-08 Oximetry 16 % 2009-05-23 Oximetry N/A % 2009-03-28 Oximetry N/A % 2009-01-25 Oximetry N/A % 2008-11-30 Oximetry N/A % 2008-02-16 Height 64.8 in 2017-12-08 Height 64.8 in 2012-08-03 Height N/A in 2012-04-06 Height 64.8 in 2011-05-05 BMI 29.47 2017-12-08 BMI 29.13 2012-08-03 BMI 28.80 2012-04-06 BMI 28.80 2011-05-05 Blood pressure systolic 128 mm Hg Blood pressure diastolic 72 mm Hg 2017-11 MEDICATIONS Medication Instructions Dosage Frequency Start Date End Date Duration Status Hydrochlorot 25 mg 1 tab Active potassium chloride 10 mEq orally bid 1 tab(s) 12h Act gregory Ecotrin 325 mg orally once a day 1 tab(s) 24h Active amlodipine-benaz epril 10 mg-40 mg orally once a day 1 cap(s) 24h Active multivitamin Multiple Vitamins orally qd 1 tab(s) 24h 30 day(s) Active Medrol dose pack 4 mg po daily as directed on pack 24h Nov, Active Crestor 5 mg orally once a day (at bedtime) 1 tab(s) Active Vitamin D3 5000 intl units orally once a day 1 tab(s) 24h Active Metoprolol Tartrate 25 mg orally 2 times a day 1/2 tab(s) 12h Active CeleBREX 200 mg orally 2 times a day 1 cap(s) 12h Active Voltaren Topical 1% applied topically 4 times a day 6h Active PROCEDURES Procedure Date Ordered Result Body Site [facility] Jun 07, 2009 INJ DEXETHOSONE SODIM PHOSHATE 1 MG April 06, 2012 PT VISIT [facility] May 11[facility] 2008 PT [facility] Aug 13, 2009 Influenza Jun 07, 2009 X-RAY HAND LEFT - 2 VIEWS Sep 30, 2010 PT VISIT DOC USING [facility] February 22, 2009 DOC MEDS VERIFIED W/PT OR RE January 13, 2011 AT LEAST 1 RX TRANSMIT ERX SYS January 13, 2011 DOC MEDS VERIFIED W/PT OR RE May 05, 2011 X-RAY HAND RIGHT - 2 VIEWS November 23, 2007 X-RAY WRIST RIGHT- 2 VIEWS February 22, 2009 X-RAY RIGHT KNEE - 2 VIEWS April 06, 2012 PRESCRIPTION BY E-PRESCRIB S January 05, 2008 AT LEAST 1 RX TRANSMIT ERX SYS May 05, 2011 Large Joint April 06, 2012 DOC MEDS VERIFIED W/PT OR RE Aug 13, 2009 X-RAY SHOULDER - 2 VIEWS Oct 04, 2008 DOC MEDS VERIFIED W/PT OR RE April 06, 2012 DOC MEDS VERIFIED W/PT OR RE Sep 30, 2010 AT LEAST 1 RX TRANSMIT ERX SYS Sep 30, 2010 PRESCRIPTION BY E-PRESCRIB S Jul 27, 2008 INJ 40 MG METHYLPRDNISOLONE ACTAT Aug 03, 2012 PRESCRIPTION BY E-PRESCRIB S February 24, 2008 DOC MEDS VERIFIED W/PT OR RE Sep 27, 2009 DOC MEDS VERIFIED W/PT OR RE November 22, 2009 ULTRASOUND GUIDE FOR ARTHROCENTESIS April 06, 2012 X-RAY HAND RIGHT - 2 VIEWS February 22, 2009 DRAIN/INJECT, JOINT/BURSA Oct 04, 2008 X-RAY WRIST RIGHT- 2 VIEWS Sep 30, 2010 DOC MEDS VERIFIED W/PT OR RE February 22, 2009 DOC MEDS VERIFIED W/PT OR RE Jun 07, 2009 PT [facility] December 19, 2008 X-RAY WRIST LEFT- 2 VIEWS Sep 30, 2010 AT LEAST 1 RX TRANSMIT ERX SYS Aug 03, 2012 AT LEAST 1 RX TRANSMIT ERX SYS November 22, 2009 EMR used - [facility] certified Aug 03, 2012 EMR used - [facility] certified November 22, 2009 X-RAY HAND LEFT - 2 VIEWS November 23, 2007 PT VISIT DOC USING [facility] Aug 31, 2009 AT LEAST 1 RX TRANSMIT ERX SYS Apr 22, 2012 PT VISIT DOC USING [facility] Sep 27, 2009 INJ DEXETHOSONE SODIM PHOSHATE 1 MG Aug 03, 2012 Qualified e-prescribing November 23, 2007 AT LEAST 1 RX TRANSMIT ERX SYS April 06, 2012 EMR used - [facility] certified January 13, 2011 INJ 40 MG METHYLPRDNISOLONE ACTAT April 06, 2012 [facility] May 05, 2011 INJ DEXETHOSONE SODIM PHOSHATE 1 MG Oct 04, 2008 PRESCRIPTION BY E-PRESCRIB S May 11, 2008 X-RAY WRIST LEFT- 2 VIEWS November 23, 2007 PT VISIT DOC USING [facility] November 23, 2007 X-RAY HAND LEFT - 2 VIEWS February 22, 2009 PRESCRIPTION BY E-PRESCRIB S February 16, 2008 [facility] Sep 30, 2010 PT VISIT DOC USING [facility] February 24, 2008 X-RAY HAND RIGHT - 2 VIEWS Sep 30, 2010 PT VISIT DOC USING [facility] Oct 04, 2008 DOC MEDS VERIFIED W/PT OR RE Aug 03, 2012 ULTRASOUND GUIDE FOR ARTHROCENTESIS Aug 03, 2012 DOC MEDS VERIFIED W/PT OR RE December 08, 2017 PT VISIT DOC USING [facility] February 16, 2008 DOC MEDS VERIFIED W/PT OR RE December 19, 2008 X-RAY WRIST RIGHT- 2 VIEWS November 23, 2007 DOC MEDS VERIFIED W/PT OR RE Aug 31, 2009 DOC MEDS VERIFIED W/PT OR RE Apr 22, 2012 X-RAY WRIST LEFT- 2 VIEWS February 22, 2009 INJ 40 MG METHYLPRDNISOLONE ACTAT Oct 04, 2008 PT VISIT DOC USING [facility] Jul 27, 2008 PRESCRIPTION BY E-PRESCRIB S Aug 31, 2009 EMR used - [facility] certified Apr 22, 2012 PRESCRIPTION BY E-PRESCRIB S Sep 27, 2009 Large Joint Aug 03, 2012 PT VISIT DOC USING [facility] January 05, 2008 PRESCRIPTION BY E-PRESCRIB S Aug 13, 2009 [facility] April 06, 2012 RESULTS Name Result Date Reference Range Culture, Fluids 2012-08-03 CELL COUNT AND DIFF, SYNOVIAL FLUID 08-03 SITE RIGHT KNEE CRYSTALS, SYNOVIAL FLUID 2012-08-03 SITE RIGHT KNEE CRYSTALS, SYNOVIAL FLUID 2012-04-06 CRYSTALS, SYNOVIAL FLUID SITE X ray: Bilateral Hands/wrists 2views X ray : Chest 2 views CBC MPV WHITE BLOOD CELL COUNT RED BLOOD CELL COUNT HEMOGLOBIN HEMATOCRIT MCH MCHC MCV PLATELET COUNT RDW CMP X ray: Shoulder, right 2 views X ray: Bilateral Hands/wrists 2views REASON FOR VISIT PT SEEN IN 2012, joint pain, joint stiffness, joint swelling, swollen rt knee, Joint Pain, Humira, prior auth., FYI only, Joint Pain, joint pain, Remicade orders, joint pain, FYI, FYI only, Remicade at [place], Message, Rem[place]ade treatment in [place], joint stiffness, joint pain, arthralgias, Message, Message, joint pain, Remicade Infusion, Message, joint pain, Refills needed, Remicade Infusion, Remicade Infusion, joint pain, Remicade Infusion, joint pain, Remicade Infusion, Remicade Infusion, Insomnia,Remicade Infusion, neck pain, hip pain, CONFIRMED, Remicade Infusion, neck pain, Remicade Infusion,joint pain, Joint Pain/has a cold currently, Message, Remicade Infusion, CONFIRMED, Cold, Message, Rx faxed, Joint Pain Insurance Providers Health Insurance Type Health Plan Insurance Address Health Plan Insurance Phone Health Plan Insurance Name Health Plan Coverage Dates Member ID Patient Relationship to Subscriber Patient Address Patient Phone Patient Name Patient Date of Subscriber ID Subscriber Name Subscriber Date of Group No [employer] [address] [place] [address]- [employer] self RIGOBERTO MERCHANT [id number] Medicare [employer] [address] [place] [phone] Medicare [employer] self RIGOBERTO MERCHANT [id number]
--- OUTSIDE RECORDS SUMMARY | 2024-04-08 14:46 | XMS_ITS | Encounter Summary ---
[place] [address] Care Team Providers Care Bobcat Operator Name Role Phone Gavino Mccollum MD Primary Care Provider [phone] Reason for Visit * Reason Comments Skin Check Encounter Details Date Type Department Care Team (Late st Contact Info) Description 05/31/2020 2:15 PM EDT Office Visit Dermatology at [address] [phone] Mark Ballesteros MD [address] [facility], [place] [address] History of SCC (squamous cell carcinoma) of skin; AK (actinic keratosis) Social History Tobacco Use Types Packs/Day Years Used Date Smoking Tobacco: Never Smokeless Tobacco: Never Sex and Gender Information Value Date Recorded Sex Assigned at Not on file Gender Identity Not on file Sexual Orientation Not on file documented as of this encounter Progress Notes * Mark Ballesteros MD - 05/31/2020 2:15 PM EDT Problem: 1. ??Repeat skin checkup 2. ??Status post PDT therapy??October??2013 3. ??History of multiple nonmelanoma cutaneous malignancies??in [place] 4. 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 ??Status post course of 5-FU / TAC May 2018. Kike follows today with his [place]. He will be heading down to [place] again in mid June. He has gradually had recurrence of numerous actinic's on his face following the course of 5-FU 2years ago in May 2018. He wonders about another course and I think he is right. Physical examination reveals a pleasant 79-year-old gentleman who has diffuse actinic keratosis of the lateral cheeks over the forehead and scalp. There is no evidence of any malignant lesions. He also has 1 on the left dorsal hand. Examination of the head and neck the chest the back the hands the arms and forearms reveals no malignant lesions. There is no evidence of any recurrent tumors at prior treatment sites. Assessment plan: Actinic keratoses facial scalp and ears 1. Begin 5 fluorouracil 5% cream applying twice daily for 10 days to face scalp and ears then discontinue dispense 40 g with 0 refills 2. Also begin triamcinolone 0.1% cream apply twice daily 30 minutes after each 5-FU application to same distribution dispense 30 g with 1 refill 3. Patient had a wonderful response last time around. I think 10 days will be the correct length oftreatment. He will call if is any questions. 4. Return to clinic in late January for his next skin checkup. Actinic keratosis left dorsal hand 1. LN2 x2 applied to single site. CC: Gavino Mccollum MD documented in this encounter Plan of Treatment Upcoming Encounters Date Type Department Care Team (Late Contact Info) Description 04/11/2024 9:00 AM EDT Office Visit Dermatology at [address] [phone] Mark Ballesteros MD [address] [place] [address], [facility] [place] [address] 06/09/2024 3:15 PM EDT Office Visit Dermatology at [address] [phone] Mark Ballesteros MD [address] [place] [address], [place] [address] 03/01/2025 11:00 AM EDT Office Visit Cardiology at [address] [place] [phone] Leif Paniagua MD [facility] [address] documented as of this encounter Visit Diagnoses Diagnosis History of SCC (squamous cell carcinoma) of skin Personal history of other malignant neoplasm of skin AK (actinic keratosis) Actinic keratosis documented in this encounter Care Teams Bobcat Operator Relationship Specialty Start Date End Date Gavino Mccollum MD [address] [facility] [place] [address] PCP - General Dermatology 03/02/20 02/29/24 documented as of this encounter
--- OUTSIDE RECORDS SUMMARY | 2024-04-08 14:46 | XMS_ITS | Encounter Summary ---
[place] [address] Care Team Providers Care Steel Post Installer Name Role Phone Allison Emanuel MD Primary Care Provider [phone] Reason for Visit * Reason Comments Skin Check Encounter Details Date Type Department Care Team (Late st Contact Info) Description 04/22/2018 3:00 PM EDT Office Visit Dermatology at [address] [phone] Mark Ballesterso MD [address] [facility] [address], [place] [address] History of SCC (squamous cell carcinoma) of skin; AK (actinic keratosis) Social History Tobacco Use Types Packs/Day Years Used Date Smoking Tobacco: Never Smokeless Tobacco: Never Sex and Gender Information Value Date Recorded Sex Assigned at Not on file Gender Identity Not on file Sexual Orientation Not on file documented as of this encounter Progress Notes * Mark Ballesteros MD - 04/22/2018 3:00 PM EDT Problem: 1. Repeat skin checkup 2. Status post PDT therapy for over 2013 3. History of multiple nonmelanoma cutaneous malignancies in [place] 4. 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 Continues to be seen both in my office and also in the office of his [place] outboard motor mechanic Dr. Gavino Mccollum. They continue to enjoy the summertime [place]. They winter in [place] Physical examination reveals diffuse actinic damage with number hyperkeratotic actinic's on the scalp on his ears and face. He shows me containers of clobetasol solution and ketoconazole both cream and shampoo that he has been applying to scalp and face prescribed by his [place] outboard motor mechanic. Assessment and plan: Actinic keratoses 1. Last year discussed the option of 5-FU which that time was not convenient for the patient, this year it will work out for him and would not be contraindicated by his study status as per his [place] outboard motor mechanic 2. Discussed the appropriate application of 5-FU 45 g 0 refills combined with triamcinolone 0.1% cream 30 g 1 refill would recommend a 10 day course twice daily applications with return to clinic after that 3. With his schedule will be most convenient for him to take this in late May but I would seehim in early June and follow-up following a 10 day course and then recommend appropriate therapyfrom that point. I see expected ear irritation inflammation that this treatment will cause but the long-term very beneficial outcome that can be expected. 4. Continue his sun avoidance precautions Cc: Allison Emanuel MD documented in this encounter Plan of Treatment Upcoming Encounters Date Type Department Care Team (Late [facility]) Description 04/11/2024 9:00 AM EDT Office Visit Dermatology at [address] [phone] Mark Ballesteros MD [address] [place] [phone] 06/09/2024 3:15 PM EDT Office Visit Dermatology at [address] [phone] Mark Ballesteros MD [address] [place] [address] 03/01/2025 11:00 AM EDT Office Visit Cardiology at [address] [phone] Leif Paniagua MD [facility] [place] [address] documented as of this encounter Visit Diagnoses Diagnosis History of SCC (squamous cell carcinoma) of skin Personal history of other malignant neoplasm of skin AK (actinic keratosis) Actinic keratosis documented in this encounter Care Teams Steel Post Installer Relationship Specialty Start Date End Date Allison Emanuel MD [address] [place] [address] PCP - General Internal Medicine 06/02/17 03/01/20 documented as of this encounter
--- OUTSIDE RECORDS SUMMARY | 2024-04-08 14:46 | XMS_ITS | Encounter Summary ---
[place] [address] Care Team Providers Care Fur Dyer Name Role Phone Allison Emaneul MD Primary Care Provider [phone] Reason for Visit * Reason Comments Follow-up Skin Check Encounter Details Date Type Department Care Team (Late st Contact Info) Description 03/04/2019 9:30 AM EDT Office Visit Dermatology at [address] [phone] Mark Ballesteros MD [address] [facility], [place] [address] History of SCC (squamous cell carcinoma) of skin; AK (actinic keratosis) Social History Tobacco Use Types Packs/Day Years Used Date Smoking Tobacco: Never Smokeless Tobacco: Never Sex and Gender Information Value Date Recorded Sex Assigned at Not on file Gender Identity Not on file Sexual Orientation Not on file documented as of this encounter Progress Notes * Mark Ballesteros MD - 03/04/2019 9:30 AM EDT Problem: 1. Repeat skin checkup 2. Status post PDT therapy for over 2013 3. History of multiple nonmelanoma cutaneous malignancies in [place] 4. 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 Status post 10-day course of 5-FU May 2018, with wonderful results Kike follows up and has been doing well. He continues to be followed both in [place] by his steel hanger, Dr. Gavino Cm there and in my office. Physical examination reveals that the significant diffuse actinic damage previously present over the sun exposed skin of the face and scalp is now largely cleared. He has a few residual actinic keratoses. Assessment plan: Actinic keratoses 1. LN 2 x 2 today applied each of 6 sites 2. Recommend I see him again in June for repeat check and consideration of another course of 5-FU. Discussed however that in all likelihood LN2 will be an excellent temporizing therapy until an another course of 5-FU may be necessary perhaps 2 to 3 years from now. 3. Continue sun with precautions 4. Would not recommend spot treatment of actinic keratoses in the meantime with 5-FU and expressed this to patient. CC: Allison Emanuel MD documented in this encounter Plan of Treatment Upcoming Encounters Date Type Department Care Team (Late st Contact Info) Description 04/11/2024 9:00 AM EDT Office Visit Dermatology at [address] [phone] Mark Ballesteros MD [address] [place] [phone] 06/09/2024 3:15 PM EDT Office Visit Dermatology at [address] [phone] Mark Ballesteros MD [address] [place] [address] 03/01/2025 11:00 AM EDT Office Visit Cardiology at [address] [phone] Leif Paniagua MD [facility] [place] [address] documented as of this encounter Visit Diagnoses Diagnosis History of SCC (squamous cell carcinoma) of skin Personal history of other malignant neoplasm of skin AK (actinic keratosis) Actinic keratosis documented in this encounter Care Teams Fur Dyer Relationship Specialty Start Date End Date Allison Emanuel MD [address] [place] [address] PCP - General Internal Medicine 06/02/17 03/01/20 documented as of this encounter
--- OUTSIDE RECORDS SUMMARY | 2024-04-08 14:46 | XMS_ITS | Encounter Summary ---
[place] [address] Care Team Providers Care Sample Card Maker Name Role Phone Joaquín Huber MD Primary Care Provider [phone] Reason for Visit * Reason Comments Skin Check Encounter Details Date Type Department Care Team (Late st Contact Info) Description 06/04/2015 11:15 AM EDT Office Visit Dermatology at [address] [place] [phone] Mark Ballesteros MD [address] [facility], [place] [address] History of SCC (squamous cell carcinoma) of skin; AK (actinic keratosis) Discharge Disposition: Home Social History Tobacco Use Types Packs/Day Years Used Date Smoking Tobacco: Never Sex and Gender Information Value Date Recorded Sex Assigned at Not on file Gender Identity Not on file Sexual Orientation Not on file documented as of this encounter Patient Instructions * Patient Instructions* Flora Nascimento LPN - 06/04/2015 12:02 PM EDT [facility] Actinic Keratosis: After Your Visit Your [...] more? Visit our health information library at [email or web address] You can also view health information on [facility], your personal patient account. Log in or sign up today. Enter L364 in the search box to learn more about Actinic Keratosis: After Your Visit. ?? [id number] [employer], [employer]. Care instructions adapted under license by [facility]. This care instruction is for use with your licensed healthcare professional. If you have questions about a medical condition or this instruction, always ask your healthcare professional. [employer] disclaims any warranty or liability for your use of this information. Content Version: 10.4.305193; Current as of: April 13, 2014 documented in this encounter Progress Notes * Mark Ballesteros MD - 06/04/2015 12:16 PM EDT Problem: 1. Skin check. 2. Status post PDT therapy October 2013. 3. History of SCCA of the KA type, left ventral forearm, treated with Mohs, three staged, January 2014. 4. History of multiple nonmelanoma cutaneous malignancies, treated in [place]. Kike follows up and has been doing well. He is here for a repeat skin check. He is seen here and also by his folding rules printing machine operator in [place], Gavino Mccollum M.D., when Kike is down there during winter months. Physical examination reveals a pleasant 74-year-old gentleman who has no evidence of recurrent England's disease of the upper nasal bridge. He has actinics scattered sparsely over the forehead and lateral cheeks. He has a pearly papule on the mid central back about 3 mm in diameters, concerning for an early BCCA. There is no evidence of recurrent SCCA on the left ventral forearm where he had Mohs surgery in January 2014. Assessment and Plan: 1. Actinic keratoses. a. LN2 times two applied to each of eight sites. 2. History of multiple nonmelanoma cutaneous malignancies. a. Patient reassured about benign examination today. b. Return to clinic in another year for repeat check, with visit with Dr. Mccollum in the meantime. 3. Probable BCCA, mid back, left of midline. a. After obtaining informed consent site was anesthetized and shave C and D times three performed. After curettage site measured 4 mm in diameter. b. Triple antibiotic ointment and Band-Aid placed. Wound care instructions and supplies given. COPY: Gavino Mccollum M.D. documented in this encounter Plan of Treatment Upcoming Encounters Date Type Department Care Team (Late st Contact Info) Description 04/11/2024 9:00 AM EDT Office Visit Dermatology at [address] [phone] Mark Ballesteros MD [address] [place] [address], [facility] [place] [address] 06/09/2024 3:15 PM EDT Office Visit Dermatology at [address] [phone] Mark Ballesteros MD [address] [place] [address], [facility] [place] [address] 03/01/2025 11:00 AM EDT Office Visit Cardiology at [address] [phone] Leif Paniagua MD [facility] [place] [address] documented as of this encounter Visit Diagnoses Diagnosis History of SCC (squamous cell carcinoma) of skin Personal history of other malignant neoplasm of skin AK (actinic keratosis) Actinic keratosis documented in this encounter Care Teams Sample Card Maker Relationship Specialty Start Date End Date Joaquín Huber MD [address] [place] [address] PCP - General 04/12/15 06/01/17 documented as of this encounter
--- OUTSIDE RECORDS SUMMARY | 2024-04-08 14:46 | XMS_ITS | Encounter Summary ---
[place] [address] Care Team Providers Care Bulk Mail Technician Name Role Phone Allison Emanuel MD Primary Care Provider [phone] Reason for Referral * Diagnostic Test (Routine) - Closed Specialty Diagnoses / Procedures Referred By Contac t Referred To Contact Radiology Diagnoses Distal paresthesia Low back pain, unspecified back pain laterality, unspecified chronicity, with sciatica presence unspecified Procedures MRI Lumbar Spine wo Contrast (Generic) MRI Lumbar Spine wwo Contrast Allison Emanuel MD [facility] [employer] [address] [place] [address] [place] [address] Referral ID Status Reason Start Date Expiration Date V isits Requested Visits Authorized [id number] Closed Specialty Service Requested 05/25/2017 05/25/2018 1 1 Reason for Visit * Diagnostic Test (Routine) - Closed Specialty Diagnoses / Procedures Referred By Contac t Referred To Contact Radiology Diagnoses Distal paresthesia Low back pain, unspecified back pain laterality, unspecified chronicity, with sciatica presence unspecified Procedures MRI Lumbar Spine wo Contrast (Generic) MRI Lumbar Spine wwo Contrast Allison Emanuel MD [facility] [employer] [address] [place] [address] [place] [address] Referral ID Status Reason Start Date Expiration Date V isits Requested Visits Authorized [id number] Closed Specialty Service Requested 05/25/2017 05/25/2018 1 1 Encounter Details Date Type Department Care Team (Late st Contact Info) Description 06/02/2017 1:43 PM EDT - 06/02/2017 11:59 PM EDT Hospital Encounter MRI at [facility] [place] [address] Allison Emanuel MD [address] [facility] [address] [place] [address] Distal paresthesia; Low back pain, unspecified back pain laterality, unspecified chronicity, with sciatica presence unspecified Discharge Disposition: Home Social History Tobacco Use Types Packs/Day Years Used Date Smoking Tobacco: Never Smokeless Tobacco: Never Sex and Gender Information Value Date Recorded Sex Assigned at Not on file Gender Identity Not on file Sexual Orientation Not on file documented as of this encounter Medications at Time of Discharge Medication Sig Dispensed Refills Start Date End Date aspirin EC 81 mg Tablet, Delayed Release (E.C.) TAKE ONE TABLET BY MOUTH DAILY 05/25/2006 hydrochlorothiazide (HYDRODIURIL) 25 mg Tablet Take 25 mg by mouth daily. 03/01/2024 metoprolol tartrate (Lopressor) 50 mg Tablet Take 1 tablet by mouth 2 times daily. 06/05/2015 06/04/2023 amlodipine-benazepril (LOTREL) 10-40 mg Capsule 1 capsule. potassium chloride (KLOR-CON) 20 mEq Packet 10 mEq. aspirin 325 mg Tablet, Delayed Release (E.C.) 325 mg. 02/19 rosuvastatin (CRESTOR) 10 mg Tablet Take 10 mg by mouth daily. 02/19/2021 meTOPROLOL (LOPRESSOR) 12.5 mg Tablet Take 25 mg by mouth. 06/06 amLODIPine (NORVASC) 10 mg Tablet Take 10 mg by mouth daily. 01/27/2023 documented as of this encounter Plan of Treatment Upcoming Encounters Date Type Department Care Team (Late st Contact Info) Description 04/11/2024 9:00 AM EDT Office Visit Dermatology at [address] [place] [address] Mark Ballesteros MD [address] [facility], [place] [address] 06/09/2024 3:15 PM EDT Office Visit Dermatology at [address] [place] [address] Mark Ballesteros MD [address] [facility] A DERMATOLOGY [place], [place] [id number] 03/01/2025 11:00 AM EDT Office Visit Cardiology at [address] [place] [address] Leif Paniagua MD [facility] [place] [address] documented as of this encounter Procedures Procedure Name Priority Date/Time Associated Diagnosis Comments MRI LUMBAR SPINE WITHOUT CONTRAST Routine 06/02/2017 3:02 PM EDT Distal paresthesia Low back pain, unspecified back pain laterality, unspecified chronicity, with sciatica presence unspecified documented in this encounter Results * MRI Lumbar Spine wo Contrast (Generic) (06/02/2017 3:02 PM EDT) Anatomical Region Laterality Modality L-spine Magnetic Resonan ce Impressions 06/02/2017 5:09 PM EDT Severe degenerative changes resulting in severe degrees of canal and neural foraminal narrowing at several levels as described above. Comment: The following findings are so common in people without low back pain that while we report their presence, they must be interpreted with caution and in context of the clinical situation (Reference- Lishak et al, Spine 2001). Findings: (Prevalence in patients without low back pain), disc degeneration (decreased T2 signal, height loss, bulge) (91%), disc T2-signal loss (83%), disc height loss (56%), disc bulge (64%), disc protrusion (32%), annular fissure (38%). Narrative 06/02/2017 5:09 PM EDT EXAMINATION: MRI LUMBAR SPINE WO CONTRAST (GENERIC) CLINICAL HISTORY: Distal paresthesia, low back pain TECHNIQUE: MRI of the lumbar spine was performed without contrast, routine radiculopathy protocol. ? COMPARISON: None FINDINGS: Advanced multilevel degenerative changes present with severe degrees of disc space narrowing and facet arthropathy at multiple levels. Several millimeters of retrolisthesis identified at L1/L2, L2/L3 and L3/L4. Grade 1 L3 on L4 and L5 on S1 anterolisthesis is noted. Otherwise alignment is unremarkable. Visualized retroperitoneal structures are unremarkable. Bone marrow signal intensity is heterogeneous but likely within the range of normal, especially if the patient is a smoker. Findings at individual levels: T12-L1: ??Disc bulge with a central disc extrusion mildly indents the thecal sac. Mild bilateral neural foraminal narrowing. L1-L2: ??Disc bulge and facet arthropathy with mild canal narrowing. Moderate bilateral neural foraminal narrowing. L2-L3: ??Disc bulge and facet arthropathy with moderate canal narrowing. Severe left and mild right-sided neural foraminal narrowing noted. L3-L4: ??Severe canal narrowing with disc bulge and facet arthropathy. Foraminal narrowing is severe in the left and moderate on the right. L4-L5: ??Severe facet arthropathy, thickening of the ligamentum flavum and a disc bulge with a superimposed left foraminal disc extrusion results in very severe canal narrowing. Foraminal narrowing is severe bilaterally, worse on the left side. L5-S1: ??Disc bulge and very severe facet arthropathy results in mild to moderate left and severe right-sided neural foraminal narrowing. Mild to moderate central canal narrowing. Procedure Note Román Chavez MD - 06/02/2017 EXAMINATION: MRI LUMBAR SPINE WO CONTRAST (GENERIC) CLINICAL HISTORY: Distal paresthesia, low back pain TECHNIQUE: MRI of the lumbar spine was performed without contrast,routine radiculopathy protocol. COMPARISON: None FINDINGS: Advanced multilevel degenerative changes present with severedegrees of disc space narrowing and facet arthropathy at multiple levels.Several millimeters of retrolisthesis identified at L1/L2, L2/L3 and L3/L4. Grade1 L3 on L4 and L5 on S1 anterolisthesis is noted. Otherwise alignment is unremarkable. Visualized retroperitoneal structures are unremarkable.Bone marrow signal intensity is heterogeneous but likely within the range ofnormal, especially if the patient is a smoker. Findings at individual levels: T12-L1: Disc bulge with a central disc extrusion mildly indents thethecal sac. Mild bilateral neural foraminal narrowing. L1-L2: Disc bulge and facet arthropathy with mild canal narrowing.Moderate bilateral neural foraminal narrowing. L2-L3: Disc bulge and facet arthropathy with moderate canal narrowing.Severe left and mild right-sided neural foraminal narrowing noted. L3-L4: Severe canal narrowing with disc bulge and facet arthropathy.Foraminal narrowing is severe in the left and moderate on the right. L4-L5: Severe facet arthropathy, thickening of the ligamentum flavum diogo disc bulge with a superimposed left foraminal disc extrusion results in verysevere canal narrowing. Foraminal narrowing is severe bilaterally, worse on theleft side. L5-S1: Disc bulge and very severe facet arthropathy results in mild tomoderate left and severe right-sided neural foraminal narrowing. Mild to moderatecentral canal narrowing. IMPRESSION Severe degenerative changes resulting in severe degrees of canal andneural foraminal narrowing at several levels as described above. Comment: The following findings are so common in people without low backpain that while we report their presence, they must be interpreted with cautionand in context of the clinical situation (Reference- Margievik et al, [id number]). Findings: (Prevalence in patients without low back pain), discdegeneration (decreased T2 signal, height loss, bulge) (91%), disc T2-signal loss(83%), disc height loss (56%), disc bulge (64%), disc protrusion (32%), annularfissure (38%). Allison Emanuel MD [facility] MRI ORDERABLES documented in this encounter Visit Diagnoses Diagnosis Distal paresthesia Disturbance of skin sensation Low back pain, unspecified back pain laterality, unspecified chronicity, with sciatica presence unspecified documented in this encounter Care Teams Bulk Mail Technician Relationship Specialty Start Date End Date Allison Emanuel MD [address] [place] [address] PCP - General Internal Medicine 06/02/17 03/01/20 documented as of this encounter
--- OUTSIDE RECORDS SUMMARY | 2024-04-08 14:46 | XMS_ITS | Encounter Summary ---
[place] [address] Care Team Providers Care Visual Basic .Net Developer Name Role Phone Gavino Mccollum MD Primary Care Provider [phone] Encounter Details Date Type Department Care Team (Late st Contact Info) Description 05/31/2020 Refill Dermatology at [address] [phone] Sierra Alarcon, [employer] Social History Tobacco Use Types Packs/Day Years [...] 9:00 AM EDT Office Visit Dermatology at [address] [phone] Mark Ballesteros MD [address] [place] [address] 06/09/2024 3:15 PM EDT Office Visit Dermatology at [address] [phone] Mark Ballesteros MD [address] [place] [address] 03/01/2025 11:00 AM EDT Office Visit Cardiology at [address] [phone] Leif Paniagua MD [facility] [place] [address] documented as of this encounter Visit Diagnoses Not on filedocumented in this encounter Care Teams Visual Basic .Net Developer Relationship Specialty Start Date End Date Gavino Mccollum MD [address] [place] [address] PCP - General Dermatology 03/02/20 02/29/24 documented as of this encounter
--- OUTSIDE RECORDS SUMMARY | 2024-04-08 14:46 | XMS_ITS | Encounter Summary ---
[place] [address] Care Team Providers Care Conservation Agent Name Role Phone Gavino Mccollum MD Primary Care Provider [phone] Reason for Visit * Reason Comments Follow-up Encounter Details Date Type Department Care Team (Late st Contact Info) Description 05/30/2022 10:15 AM EDT Office Visit Dermatology at [address] [phone] Mark Ballesteros MD [address] [facility], [place] [address] [place] (actinic keratosis); History of SCC (squamous cell carcinoma) of skin Social History Tobacco Use Types Packs/Day Years Used Date Smoking Tobacco: Never Smokeless Tobacco: Never Sex and Gender Information Value Date Recorded Sex Assigned at Not on file Gender Identity Not on file Sexual Orientation Not on file documented as of this encounter Progress Notes * Mark Ballesteros MD - 05/30/2022 10:15 AM EDT Problem: 1. ??Repeat skin checkup 2. ??Status post PDT therapy??October??2013 3. ??History of multiple nonmelanoma cutaneous malignancies??in [place] 4. 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 ??Status post courses??of 5-FU / TAC May 2018, and May 2020 7. ??Status post three 1 week courses of 5-FU beginning of each month x3, February 2021, and February 2022 applying once daily 8. History malignant melanoma in his brother 9. History of malignant melanoma 0.65 mm Breslow depth right upper back July 2021. Kike follows up today with his Zahira. Has been doing well. He utilized the 5-FU 1 week out of each month for 3 months February and April and has had a wonderful response. He is very pleased and very grateful. He did notice some bleeding from the right nasal tip site. Physical examination reveals a pleasant 81-year-old gentleman who has 2 or 3 remaining actinic keratoses on the scalp and face but otherwise it is a clear complexion. He is not as red, the skin tone is much improved. He has a pearly papule on the right nasal tip concerning for SCC versus BCCA. Assessment plan: Actinic keratoses significant provement facial involvement following courses of 5-FU this summer 1. Patient congratulated on wonderful response 2. Return to clinic next spring for a repeat check. Actinic keratoses, residual sites 1. LN 2 x 2 applied each of 3 sites SCC versus BCCA right tip of nose 1. After obtaining consent site was anesthetized and then removed shave C&D 2. Triple antibiotic ointment bandage placed. After curettage site measured 7 mm in diameter. 3. Wound care instructions and supplies given CC: Gavino Mccollum MD ?? documented in this encounter Plan of Treatment Upcoming Encounters Date Type Department Care Team (Late st Contact Info) Description 04/11/2024 9:00 AM EDT Office Visit Dermatology at [address] [phone] Mark Ballesteros MD [address] [place] [address], [facility] [place] [address] 06/09/2024 3:15 PM EDT Office Visit Dermatology at [address] [phone] Mark Ballesteros MD [address] [place] [address], [facility] [place] [address] 03/01/2025 11:00 AM EDT Office Visit Cardiology at [address] [place] [address] Leif Paniagua MD [facility] [place] [address] documented as of this encounter Visit Diagnoses Diagnosis AK (actinic keratosis) Actinic keratosis History of SCC (squamous cell carcinoma) of skin Personal history of other malignant neoplasm of skin documented in this encounter Care Teams Conservation Agent Relationship Specialty Start Date End Date Gavino Mccollum MD [address] [place], [place] [id number] PCP - General Dermatology 03/02/20 02/29/24 documented as of this encounter
--- OUTSIDE RECORDS SUMMARY | 2024-04-08 14:46 | XMS_ITS | Encounter Summary ---
[place] [address] Care Team Providers Care Preprint Analyst Name Role Phone Allison Emanuel MD Primary Care Provider [phone] Reason for Visit * Reason Comments Follow-up Encounter Details Date Type Department Care Team (Late st Contact Info) Description 06/04/2017 9:45 AM EDT Office Visit Dermatology at [address] [phone] Mark Ballesteros MD [address] [facility] [place] [address] History of SCC (squamous cell carcinoma) of skin; AK (actinic keratosis) Social History Tobacco Use Types Packs/Day Years Used Date Smoking Tobacco: Never Smokeless Tobacco: Never Sex and Gender Information Value Date Recorded Sex Assigned at Not on file Gender Identity Not on file Sexual Orientation Not on file documented as of this encounter Progress Notes * Mark Ballesteros MD - 06/04/2017 9:45 AM EDT PROBLEM: 1. Repeat skin checkup. 2. Status post PDT therapy 10/2013. 3. History of multiple nonmelanoma cutaneous malignancies in [place]. 4. 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 5. 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 Kike follows up and has been doing well. He has noted some new actinics. He would like to have them checked and treated before he heads back down to [place], and he will be heading down in June. He will be seeing his [place] online affiliate marketing manager, Gavino Mccollum MD, in June. Since our last meeting I have been in contact with the office of Dr. Mccollum, and I was told that Efudex would not be contraindicated in Mr. Colin's case given his study status. Physical examination reveals a pleasant 76-year-old gentleman who has diffuse small actinics developing again on the scalp, the face, the lateral cheeks, the forehead. A/P: Actinic keratoses. a. Discussed the option of 5FU. b. Unfortunately this will not fit into patient's current schedule. He will bring this option up with Dr. Mccollum when he sees him in June in [place]. c. LN2 x2 is applied to actinics on the face seen today. Return to clinic here in January for repeat check. A total of 15 actinics were treated. Cc: Gavino Mccollum MD documented in this encounter Plan of Treatment Upcoming Encounters Date Type Department Care Team (Late st Contact Info) Description 04/11/2024 9:00 AM EDT Office Visit Dermatology at [address] [phone] Mark Ballesteros MD [address] [place] [address] 06/09/2024 3:15 PM EDT Office Visit Dermatology at [address] [phone] Mark Ballesteros MD [address] [place] [address] 03/01/2025 11:00 AM EDT Office Visit Cardiology at [address] [phone] Leif Paniagua MD [facility] [place] [address] documented as of this encounter Visit Diagnoses Diagnosis History of SCC (squamous cell carcinoma) of skin Personal history of other malignant neoplasm of skin AK (actinic keratosis) Actinic keratosis documented in this encounter Care Teams Preprint Analyst Relationship Specialty Start Date End Date Allison Emanuel MD [address] [place] [address] PCP - General Internal Medicine 06/02/17 03/01/20 documented as of this encounter
--- OUTSIDE RECORDS SUMMARY | 2024-04-08 14:46 | XMS_ITS | Encounter Summary ---
Author Organization [facility] [place] [address] Care Team Providers Care House Decorator Name Role Phone Unknown Primary Care Provider Unavailabl e Reason for Visit * Reason Comments Skin Check Encounter Details Date Type Department Care Team (Late st Contact Info) Description 05/16/2014 11:30 AM EDT Office Visit Dermatology at [address] [place] [address] Mark Grimes MD [address] [facility], [place] [address] [place] (actinic keratosis) (Primary Dx); History of SCC (squamous cell carcinoma) of skin Social History Tobacco Use Types Packs/Day Years Used Date Smoking Tobacco: Unknown Sex and Gender Information Value Date Recorded Sex Assigned at Not on file Gender Identity Not on file Sexual Orientation Not on file documented as of this encounter Patient Instructions * Patient Instructions* Grazyna Pickett LPN - 05/16/2014 12:28 PM EDT Images from the original note were not included. [facility] Skin Cancer Prevention: After Your Visit Your Care Instructions Skin cancer is the abnormal growth of cells in the skin. It usually appears as a growth that changes in color, shape, or size. This can be a sore that does not heal or a change in a wart or a mole. Skin cancer is almost always curable when found early and treated. So it is important to see your doctor if you have any of these changes in your skin. Skin cancer is the most common type of cancer. It often appears on areas of the body that have beenexposed to the sun, such as the head, face, neck, back, chest, or shoulders. Follow-up care is a rodriguez part of your treatment and safety. Be sure to make and go to all appointments, and call your doctor if you are having problems. It's also a good idea to know your test resultsand keep a list of the medicines you take. How can you care for yourself at home? ?? Wear a wide-brimmed hat and long sleeves and pants if you are going to be outdoors for a long time. ?? Avoid the sun between 10 a.m. and 4 p.m., which is the peak time for UV rays. ?? Wear sunscreen on exposed skin. Make sure the sunscreen blocks ultraviolet rays (both UVA and UVB) and has a sun protection factor (SPF) of at least 15. Use it every day, even when it is cloudy. Some doctors may recommend a higher SPF, such as 30. ?? Do not use tanning booths or sunlamps. ?? Use lip balm or cream that has sun protection factor (SPF) to protect your lips from getting sunburned or getting cold sores. ?? Wear sunglasses that block UV rays. When should you call for help? Watch closely for changes in your health, and be sure to contact your doctor if: ?? You are concerned about any problem areas on your skin. ?? You notice a change in a mole or skin growth. For example: ?? It gets bigger. ?? It develops uneven borders. ?? It gets thicker, raised, or worn down. ?? It changes color. ?? It starts to bleed easily. Where can you learn more? Visit our health information library at [email or web address] You can also view health information on [employer], your personal patient account. Log in or sign up today. Enter P392 in the search box to learn more about Skin Cancer Prevention: After Your Visit. ?? [phone] [employer]. Care instructions adapted under license by [facility]. This care instruction is for use with your licensed healthcare professional. If you have questions about a medical condition or this instruction, always ask your healthcare professional. [employer] disclaims any warranty or liability for your use of this information. Content Version: 9.9.228508; Last Revised: April 19, 2013 documented in this encounter Progress Notes * Mark Grimes MD - 05/16/2014 12:42 PM EDT Problem: Skin check. Kike is a 73-year-old gentleman who recently started spending his harding in [place] and would like to establish contact with a ski base trimmer here. He brown in [place]. His doctor there is Dr. Mccollum. The patient has a history of nonmelanoma skin cancer and has had PDT therapy earlier this year. He has a history of an SCCA of the KA type on the left ventral forearm, which was excised with Mohs surgery in January 2014. Physical examination reveals a pleasant, 73-year-old gentleman who has actinics present over the balding parietal scalp, several on his cheeks. Otherwise, careful examination of the head and neck, chest, back, hands, arms, forearms is otherwise benign. Assessment and Plan: Actinic keratoses, scalp. a. LN2 times two applied to each of 10 sites. b. Patient reassured about remainder of benign skin examination. c. I recommended I see him on a yearly basis when he is up here in [place]. He will continue to see his ski base trimmer in [place] when he is down there. d. I reinforced sun avoidance precautions. I encouraged him to use sunscreen and wear a broad-brimmed hat when out of doors. e. [id number] reminder in one year. COPY: Gavino Mccollum M.D. documented in this encounter Miscellaneous Notes * Addendum Note - Mark Grimes MD - 05/23/2014 5:35 PM EDTAddended by: MARK GRIMES on: 05/23/2014 05:35 PM Modules accepted: Level of Service documented in this encounter Plan of Treatment Upcoming Encounters Date Type Department Care Team (Late st Contact Info) Description 04/11/2024 9:00 AM EDT Office Visit Dermatology at [address] [phone] Mark Grimes MD [address] [place] [address] 06/09/2024 3:15 PM EDT Office Visit Dermatology at [address] [phone] Mark Grimes MD [address] [place] [address] 03/01/2025 11:00 AM EDT Office Visit Cardiology at [address] [phone] [facility] [place] [address] documented as of this encounter Visit Diagnoses Diagnosis AK (actinic keratosis)- Primary Actinic keratosis History of SCC (squamous cell carcinoma) of skin Personal history of other malignant neoplasm of skin documented in this encounter Care Teams House Decorator Relationship Specialty Start Date End Date Unknown None PCP - General 02/28/14 04/11/15 documented as of this encounter
--- OUTSIDE RECORDS SUMMARY | 2024-04-08 14:46 | XMS_ITS | Encounter Summary ---
[place] [address] Care Team Providers Care Data Center Architect Name Role Phone Gavino Mccollum MD Primary Care Provider [phone] Reason for Visit * Reason Comments Skin Check Encounter Details Date Type Department Care Team (Late st Contact Info) Description 02/25/2022 10:00 AM EDT Office Visit Dermatology at [address] [phone] Mark Ballesteros MD [address] [facility], [place] [address] [place] (actinic keratosis); History of SCC (squamous cell carcinoma) of skin Social History Tobacco Use Types Packs/Day Years Used Date Smoking Tobacco: Never Smokeless Tobacco: Never Sex and Gender Information Value Date Recorded Sex Assigned at Not on file Gender Identity Not on file Sexual Orientation Not on file documented as of this encounter Progress Notes * Mark Ballesteros MD - 02/25/2022 10:00 AM EDT Problem: 1. ??Repeat skin checkup 2. ??Status post PDT therapy??October??2013 3. ??History of multiple nonmelanoma cutaneous malignancies??in [place] 4. 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 ??Status post courses??of 5-FU / TAC May 2018, and May 2020 7. Status post three 1 week courses of 5-FU beginning of each month x3, February 2021, applying daily 8. History malignant melanoma in his brother ?? Kike follows up and is now 81. Since his last visit with me he was seen by junior mechanical engineer in [place] and then malignant melanoma was just diagnosed in the right upper back. Kike will request thebiopsy report be sent to my chart as well for documentation purposes. He like to have his general skin checkup. He is frustrated that his actinic's have recurred again. They are sore and tender. Physical examination reveals a pleasant 81-year-old gentleman who has diffuse widespread actinic damage of the cheeks discussed balding scalp of the nose and ears postauricular scalp and a little biton the submandibular neck left and right. Examination of the chest the back the hands arms forearmsthighs and calves is benign with an actinic on the right dorsal hand and on the right dorsal forearm. He has a well-healed scar in the right upper back with no evidence of recurrent pigmentation there. He also has an actinic that runs longitudinally at the vermilion border of the lower lip centrally. He had a good winter in [place] at [place] this year. Assessment plan: Actinic keratosis facial 1. Again begin 5-fluorouracil applying on a once daily basis to face nightly for 1 week on 3 weeks off repeat for a total of 3 cycles. He has plenty left at home. 2. He knows to apply this in a thin layer as he would apply sunscreen to the scalp face nose ears lower vermilion border of the lip. 3. Return to clinic in May for repeat check. Actinic keratosis dorsal hand and forearm 1. LN 2 x 2 applied each of 2 sites. Painful symptomatic actinic keratoses 1. While using 5-FU may continue to use his prescriptions from his [place] junior mechanical engineer, ketoconazole 2% cream and shampoo for face and scalp, Aclovate cream/alclometasone dipropionate cream, and clobetasol solution. 2. He mixes small amounts of these together to apply the sensitive areas. History of malignant melanoma 1. Patient has a positive family history 2. Patient has a personal history, will request copy of biopsy report. 3. He will do monthly self skin checks of at home and his Zahira will help him with these. 4. Reevaluate in 3months in my office. 5. He plans again to head down to [place] next winter with follow-up with his junior mechanical engineer to their CC: Gavino Mccollum MD documented in this encounter Plan of Treatment Upcoming Encounters Date Type Department Care Team (Late st Contact Info) Description 04/11/2024 9:00 AM EDT Office Visit Dermatology at [address] [phone] Mark Ballesteros MD [address] [place] [address], [facility] [place] [address] 06/09/2024 3:15 PM EDT Office Visit Dermatology at [address] [phone] Mark Ballesteros MD [address] [place] [address] 03/01/2025 11:00 AM EDT Office Visit Cardiology at [address] [phone] Leif Paniagua MD [facility] [place] [address] documented as of this encounter Visit Diagnoses Diagnosis AK (actinic keratosis) Actinic keratosis History of SCC (squamous cell carcinoma) of skin Personal history of other malignant neoplasm of skin documented in this encounter Care Teams Data Center Architect Relationship Specialty Start Date End Date Gavino Mccollum MD [address] [place] [address] PCP - General Dermatology 03/02/20 02/29/24 documented as of this encounter
--- OUTSIDE RECORDS SUMMARY | 2024-04-08 14:46 | XMS_ITS | Encounter Summary ---
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 Tina Griffith APRN [address] [place] [address] Leif Paniagua MD [facility] [place] [address] Referral ID Status Reason Start Date Expiration Date V isits Requested Visits Authorized [id number] Closed Consult, Test & Treat PCP Updated and/or Approved 03/21/2022 03/21/2023 6 6 Encounter Details Date Type Department Care Team (Late st Contact Info) Description 03/21/2022 Transcribe Orders eDH Incoming Referrals [phone] Tina Griffith APRN [address] [place], [place] [id number] 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 Social History Tobacco Use Types Packs/Day Years [...] 9:00 AM EDT Office Visit Dermatology at [address] [phone] Mark Ballesteros MD [address] [place] [address], [facility] [place] [address] 06/09/2024 3:15 PM EDT Office Visit Dermatology at [address] [phone] Mark Ballesteros MD [address] [place] [address], [place] [address] 03/01/2025 11:00 AM EDT Office Visit Cardiology at [address] [phone] Leif Paniagua MD [facility] [place] [place] [address] Scheduled Referrals Name Type Priority Associated Diagnoses Orde r Schedule Referral to Cardiology Outpatient Referral Routine 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
--- OUTSIDE RECORDS SUMMARY | 2024-04-08 14:46 | XMS_ITS | Encounter Summary ---
[place] [address] Care Team Providers Care Satin Finisher Name Role Phone Gavino Mccollum MD Primary Care Provider [phone] Reason for Visit * Reason Comments Skin Check Encounter Details Date Type Department Care Team (Late st Contact Info) Description 05/27/2021 11:30 AM EDT Office Visit Dermatology at [address] [phone] Mark Ballesteros MD [address] [facility] [address], [place] [address] [place] (actinic keratosis) Social History Tobacco Use Types Packs/Day Years Used Date Smoking Tobacco: Never Smokeless Tobacco: Never Sex and Gender Information Value Date Recorded Sex Assigned at Not on file Gender Identity Not on file Sexual Orientation Not on file documented as of this encounter Progress Notes * Mark Ballesteros MD - 05/27/2021 11:30 AM EDT Problem: 1. ??Repeat skin checkup 2. ??Status post PDT therapy??October??2013 3. ??History of multiple nonmelanoma cutaneous malignancies??in [place] 4. 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 ??Status post courses of 5-FU / TAC May 2018, and May 2020 7. Status post three 1 week courses of 5-FU beginning of each month x3, February 2021, applying daily Kike follows up and is very pleased with the results of the 5-FU. He use this daily for one weekthe beginning of each month for 3 months and then discontinued it. He did not need to use any triamcinolone cream. He found that he had a mild reaction but very acceptable without excessive redness and excessive irritation. He applied the cream to his scalp his face. He has noted a new lesion at the left anterior helical rim at its intersection with the cheek Physical examination reveals a pleasant 80-year-old gentleman who has only 3 or 4 small actinic keratoses remaining remaining on the bald parietal scalp. Facial examination is otherwise clear. Examination of the chest and back the hands and arms and forearms is otherwise benign. He has a red sensitive hypertrophic scar on the left anterior distal thigh at site of an earlier biopsy Assessment and plan: Actinic keratoses facial scalp and ears 1. Wonderful response to 5-FU applied for 7 days of each of 3 months February and April 2021 2. No triamcinolone was needed 3. Hold further use of it at this time 4. LN2 x2 applied to each of 5 residual actinic keratoses on the bald parietal scalp. History of multiple nonmelanoma cutaneous malignancies 1. No evidence of recurrence, and no new lesions of concern 2. Return to clinic in February for repeat check. 3. If the patient goes to [place] this winter, he will seek a visit with his dialysis rn there Rule out BCCA SCCA left anterior helical rim at junction with cheek 1. After obtaining informed patient consent, the site was anesthetized and shave C&D x3 performed 2. Triple antibiotic applied bandage placed. After curettage site measured 7 mm in diameter 3. Return to clinic in February for repeat check Hypertrophic scar left anterior thigh 1. Could consider injection with Kenalog 10 mg/mL 0.1 mL CC: Gavino Mccollum MD documented in this encounter Plan of Treatment Upcoming Encounters Date Type Department Care Team (Late st Contact Info) Description 04/11/2024 9:00 AM EDT Office Visit Dermatology at [place] [address] [facility] [place] [address] Mark Ballesteros MD 580 [facility], [place] [address] 06/09/2024 3:15 PM EDT Office Visit Dermatology at [address] [place] [address] Mark Ballesteros MD 580 [facility], [facility] DERMATOLOGY [place], [place] [phone] 03/01/2025 11:00 AM EDT Office Visit Cardiology at [address] [place] [address] Leif Paniagua MD [facility] [address] documented as of this encounter Visit Diagnoses Diagnosis AK (actinic keratosis) Actinic keratosis documented in this encounter Care Teams Satin Finisher Relationship Specialty Start Date End Date Gavino Mccollum MD [address] [place] [address] PCP - General Dermatology 03/02/20 02/29/24 documented as of this encounter
--- OUTSIDE RECORDS SUMMARY | 2024-04-08 14:46 | XMS_ITS | Encounter Summary ---
[place] [address] Care Team Providers Care Detector Car Operator Name Role Phone Gavino Mccollum MD Primary Care Provider [phone] Reason for Visit * Reason Comments Skin Check Encounter Details Date Type Department Care Team (Late st Contact Info) Description 03/02/2020 1:30 PM EDT Office Visit Dermatology at [address] [phone] Mark Ballesteros MD [address] [facility] [address], [place] [address] History of SCC (squamous cell carcinoma) of skin; AK (actinic keratosis) Social History Tobacco Use Types Packs/Day Years Used Date Smoking Tobacco: Never Smokeless Tobacco: Never Sex and Gender Information Value Date Recorded Sex Assigned at Not on file Gender Identity Not on file Sexual Orientation Not on file documented as of this encounter Progress Notes * Mark Ballesteros MD - 03/02/2020 1:30 PM EDT Problem: 1. ??Repeat skin checkup 2. ??Status post PDT therapy October 2013 3. ??History of multiple nonmelanoma cutaneous malignancies??in [place] 4. 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 Status post course of 5-FU / TAC May 2018. Kike follows up today for a repeat check. He and his Zahira nettlesker down in [place] over the winter and are now happy to be [facility] [place] [facility]. On January 29 he was seen by his regional business development manager in [place] and multiple biopsies were taken at different locations on his face his scalp his shoulder and back. He did not have time to have any of these acted upon before [place] left [place]. The biopsies demonstrated actinic keratoses with several small very early stage squamous of carcinomas in situ and superficial BCCA's. Documentation and photographs of thelocate location of these is very clearly provided in paperwork that he had submitted to us. Physical examination reveals a pleasant 79-year-old gentleman who has healing biopsy sites on the cheek the scalp the shoulders and chest. Each of these was identified and treated today with aggressive LN2 x2. Otherwise examination of the head and the neck the chest the back the hands the arms forearms thighs and calves is benign. 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 LN 2 x 2 plan each of 9 sites 2. Remainder of skin examination appears benign today. 3. Return to clinic in May for repeat skin check before his back down to [place] for the winter. Cc: Allison Emanuel MD documented in this encounter Plan of Treatment Upcoming Encounters Date Type Department Care Team (Late st Contact Info) Description 04/11/2024 9:00 AM EDT Office Visit Dermatology at [address] [phone] Mark Ballesteros MD [address] [place] [address] 06/09/2024 3:15 PM EDT Office Visit Dermatology at [address] [phone] Mark Ballesteros MD [address] [place] [address] 03/01/2025 11:00 AM EDT Office Visit Cardiology at [address] [phone] Leif Paniagua MD [facility] [place] [address] documented as of this encounter Visit Diagnoses Diagnosis History of SCC (squamous cell carcinoma) of skin Personal history of other malignant neoplasm of skin AK (actinic keratosis) Actinic keratosis documented in this encounter Care Teams Detector Car Operator Relationship Specialty Start Date End Date Gavino Mccollum MD [address] [facility] [place] [address] PCP - General Dermatology 03/02/20 02/29/24 documented as of this encounter
--- OUTSIDE RECORDS SUMMARY | 2024-04-08 14:46 | XMS_ITS | Encounter Summary ---
Author Organization [facility] Address [facility] [address] ro[address] [address] Care Team Providers Care Wad Impregnator Name Role Phone Gavino Mccollum MD Primary Care Provider [phone] Encounter Details Date Type Department Care Team (Late st Contact Info) Description 03/27/2022 Telephone Cardiology at [address] [phone] Leif Paniagua MD [facility] [place] [address] Social History Tobacco Use Types Packs/Day Years Used Date Smoking Tobacco: Never Smokeless Tobacco: Never Sex and Gender Information Value Date Recorded Sex Assigned at Not on file Gender Identity Not on file Sexual Orientation Not on file documented as of this encounter Miscellaneous Notes * Telephone Encounter - Deion Breaux - 03/27/2022 9:40 AM EDT I spoke with patient and he stated that since Dr. Paniagua would not be able to see him until For his new patient appt he will wait until February of next year when [place]. documented in this encounter Plan of Treatment Upcoming Encounters Date Type Department Care Team (Late st Contact Info) Description 04/11/2024 9:00 AM EDT Office Visit Dermatology at [address] [phone] Mark Ballesteros MD [address] [place] [address], [place] [address] 06/09/2024 3:15 PM EDT Office Visit Dermatology at [address] [place] [address] aMrk Ballesteros MD 580 [facility] DERMATOLOGY [place], [place] [phone] 03/01/2025 11:00 AM EDT Office Visit Cardiology at [address] [place] [address] Leif Paniagua MD [facility] [place] [address] documented as of this encounter Visit Diagnoses Not on filedocumented in this encounter Care Teams Wad Impregnator Relationship Specialty Start Date End Date Gavino Mccollum MD [address] [place] [address] PCP - General Dermatology 03/02/20 02/29/24 documented as of this encounter
--- OUTSIDE RECORDS SUMMARY | 2024-04-08 14:46 | XMS_ITS | Encounter Summary ---
[place] [address] Care Team Providers Care Welfare Specialist Name Role Phone Gavino Mccollum MD Primary Care Provider [phone] Encounter Details Date Type Department Care Team (Late st Contact Info) Description 02/21/2021 Refill Dermatology at [address] [phone] [place], [employer] Social History Tobacco Use Types Packs/Day Years [...] 9:00 AM EDT Office Visit Dermatology at [address] [phone] Mark Ballesteros MD [address] [place] [address] 06/09/2024 3:15 PM EDT Office Visit Dermatology at [address] [phone] Mark Ballesteros MD [address] [place] [address] 03/01/2025 11:00 AM EDT Office Visit Cardiology at [address] [phone] [facility] [place] [address] documented as of this encounter Visit Diagnoses Not on filedocumented in this encounter Care Teams Welfare Specialist Relationship Specialty Start Date End Date Gavino Mccollum MD [address] [place] [address] PCP - General Dermatology 03/02/20 02/29/24 documented as of this encounter
--- OUTSIDE RECORDS SUMMARY | 2024-04-08 14:46 | XMS_ITS | Encounter Summary ---
[place] [address] Care Team Providers Care Cribber Name Role Phone Allison Emanuel MD Primary Care Provider [phone] Encounter Details Date Type Department Care Team (Late st Contact Info) Description 06/06/2019 1:30 PM EDT Office Visit Dermatology at [address] [place] [address] Mark Ballesteros MD [address] [facility] [address], [place] [address] History of SCC (squamous cell carcinoma) of skin; AK (actinic keratosis) Social History Tobacco Use Types Packs/Day Years Used Date Smoking Tobacco: Never Smokeless Tobacco: Never Sex and Gender Information Value Date Recorded Sex Assigned at Not on file Gender Identity Not on file Sexual Orientation Not on file documented as of this encounter Progress Notes * Mark Ballesteros MD - 06/06/2019 1:30 PM EDT Problem: 1. Repeat skin checkup 2. Status post PDT therapy October 2013 3. History of multiple nonmelanoma cutaneous malignancies in [place] 4. 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 Status post course of 5-FU / TAC May 2018. Kike follows up today for a repeat check. I last saw him in February of this year. He will soon be heading back down to [place] for the summer. He continues to be very satisfied with the long-lasting results of the course of 5-FU administered last May to his face and scalp, with resolution of nearly all of the hyperkeratotic actinic's that were present at that time. Physical examination reveals a pleasant 78-year-old gentleman is here today with his Zahira.He has an actinic on the left mid helical rim. He has some mild actinic damage of the bald parietalscalp but nothing that required treatment today. He has 3 actinic's on the right preauricular cheek. Otherwise examination of the face the scalp the head and the neck the chest the back the hands thearms the forearms thighs and the calves is benign. Assessment and plan: Actinic keratoses left ear and of right preauricular cheek 1. LN 2 x 2 applied each of 4 sites 2. Continue sun avoidance precautions 3. I recommend that I see him again next spring. We will decide at that time whether he thereafter should be seen on a every 6 month versus q. 12-month basis. 4. He will be seeing his [place] office coordinator receptionist Dr. Gavino Cm this winter in [place]. CC: Allison Emanuel MD documented in this encounter Plan of Treatment Upcoming Encounters Date Type Department Care Team (Late st Contact Info) Description 04/11/2024 9:00 AM EDT Office Visit Dermatology at [address] [phone] Mark Ballesteros MD [address] [place] [address] 06/09/2024 3:15 PM EDT Office Visit Dermatology at [address] [phone] Mark Ballesteros MD [address] [place] [address] 03/01/2025 11:00 AM EDT Office Visit Cardiology at [address] [phone] Leif Paniagua MD [facility] [place] [address] documented as of this encounter Visit Diagnoses Diagnosis History of SCC (squamous cell carcinoma) of skin Personal history of other malignant neoplasm of skin AK (actinic keratosis) Actinic keratosis documented in this encounter Care Teams Cribber Relationship Specialty Start Date End Date Allison Emanuel MD [address] [place] [address] PCP - General Internal Medicine 06/02/17 03/01/20 documented as of this encounter
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
--- OUTSIDE RECORDS SUMMARY | 2024-04-08 14:46 | XMS_ITS | Encounter Summary ---
[place] [address] Care Team Providers Care Multimedia Technician Name Role Phone Joaquín Huber MD Primary Care Provider [phone] Reason for Visit * Reason Comments Follow-up Skin Check Encounter Details Date Type Department Care Team (Late st Contact Info) Description 04/13/2017 3:30 PM EDT Office Visit Dermatology at [address] [phone] Mark Ballesteros MD [address] [facility], [place] [address] History of SCC (squamous cell carcinoma) of skin; AK (actinic keratosis) Social History Tobacco Use Types Packs/Day Years Used Date Smoking Tobacco: Never Smokeless Tobacco: Never Sex and Gender Information Value Date Recorded Sex Assigned at Not on file Gender Identity Not on file Sexual Orientation Not on file documented as of this encounter Progress Notes * Mark Ballesteros MD - 04/13/2017 3:30 PM EDT PROBLEM: 1. Repeat skin checkup. 2. Status post PDT therapy October 2013. 3. History of multiple nonmelanoma cutaneous lesions treated in [place]. 4. History of BCCA, sclerosing type, mid back left of midline, May 2015. 5. Currently participating in HPV vaccine study vis-??-vis development with keratinocyte carcinoma. Kike follows up and has been doing well. He is here for repeat skin checkup. He is also seen by a forge tender in [place], Gavino Mccollum MD, when he is there in the winter months. He is planning on seeing him again in June. PHYSICAL EXAMINATION: He is a pleasant 76-year-old gentleman who has a number of actinics, mainly hyperkeratotic, present along the lateral cheeks, his forehead, and balding parietal scalp. Examination of the chest, the back, the hands, forearms, thighs, and calves is otherwise benign. There is no evidence of any recurrent BCCA on the mid back. ASSESSMENT AND PLAN: 1. Actinic keratoses. A. LN2 x2 applied to each of 15 sites. B. Recommend he see me on a yearly basis. C. The patient will be seen by Dr. Mccollum in the meantime. Note: I discussed with the patient of 5-FU in the future. The patient did not recall ever having used this in the past. We will need to check with Dr. Mccollum to be sure that this is not contraindicated in study patients. documented in this encounter Plan of Treatment Upcoming Encounters Date Type Department Care Team (Late st Contact Info) Description 04/11/2024 9:00 AM EDT Office Visit Dermatology at [address] [phone] Mark Ballesteros MD [address] [place] [phone] 06/09/2024 3:15 PM EDT Office Visit Dermatology at [address] [phone] Mark Ballesteros MD [address] [place] [address] 03/01/2025 11:00 AM EDT Office Visit Cardiology at [address] [phone] Leif Paniagua MD [facility] [place] [address] documented as of this encounter Visit Diagnoses Diagnosis History of SCC (squamous cell carcinoma) of skin Personal history of other malignant neoplasm of skin AK (actinic keratosis) Actinic keratosis documented in this encounter Care Teams Multimedia Technician Relationship Specialty Start Date End Date Joaquín Huber MD [address] [place] [address] PCP - General 04/12/15 06/01/17 documented as of this encounter
--- OUTSIDE RECORDS SUMMARY | 2024-04-08 14:46 | XMS_ITS | Encounter Summary ---
[place] [address] Care Team Providers Care Rnp Name Role Phone Allison Emanuel MD Primary Care Provider [phone] Reason for Referral * Diagnostic Test (Routine) - Closed Specialty Diagnoses / Procedures Referred By Contac t Referred To Contact Radiology Diagnoses Spinal stenosis of lumbar region, unspecified whether neurogenic claudication present Procedures MRI Lumbar Spine wo Contrast (Generic) Allison Emanuel MD [employer] [address] [place] [address] [place] [address] Referral ID Status Reason Start Date Expiration Date V isits Requested Visits Authorized [id number] Closed Specialty Service Requested 03/09/2019 03/08/2020 1 1 Reason for Visit * Diagnostic Test (Routine) - Closed Specialty Diagnoses / Procedures Referred By Contac t Referred To Contact Radiology Diagnoses Spinal stenosis of lumbar region, unspecified whether neurogenic claudication present Procedures MRI Lumbar Spine wo Contrast (Generic) Allison Emanuel MD [address] [employer] [address] [place] [address] [place] [address] Referral ID Status Reason Start Date Expiration Date V isits Requested Visits Authorized [id number] Closed Specialty Service Requested 03/09/2019 03/08/2020 1 1 Encounter Details Date Type Department Care Team (Late st Contact Info) Description 03/25/2019 1:50 PM EDT - 03/25/2019 11:59 PM EDT [place] [address] Allison Emanuel MD [address] [place] [address] Spinal stenosis of lumbar region, unspecified whether neurogenic claudication present Discharge Disposition: Home Social History Tobacco Use [...] by mouth 2 times daily. 06/05/2015 06/04/2023 diclofenac (VOLTAREN) 1 % Gel 10/20/2018 03/01/2024 DUREZOL 0.05 % Drops 10/07/2018 021 gatifloxacin (ZYMAXID) 0.5 % Drops 10/07/2018 06/06/2019 ketorolac tromethamine (ACULAR) 0.5 % Drops 10/07/2018 019 metoprolol succinate (TOPROL-XL) 25 mg Tablet Sustained Release 24 hr Take 25 mg by mouth. 2023 fluorouracil (EFUDEX) 5 % Cream APPLY TO FACE AND SCALP TWICE DAILY FOR 10 DAYS THEN STOP 0 04/22/2018 06/06/2019 triamcinolone (KENALOG) 0.1 % Cream APPLY TOPICALLY TO 5FU TREATED AREA AFTER APPLICATION TWICE DAILY 30 MINUTES AFTER APPLICATION FOR 10 DAYS 1 04/22/2018 05/31/2020 celecoxib (CELEBREX) 200 mg Capsule TAKE ONE CAPSULE BY MOUTH TWICE A DAY 2 03/19/2018 02/19/2021 potassium chloride (KLOR-CON) 20 mEq Packet Take 10 mEq by mouth. 2020 amlodipine-benazepril (LOTREL) 10-40 mg Capsule 1 capsule. 05/30/2022 aspirin 325 mg Tablet, Delayed Release (E.C.) [...] 9:00 AM EDT Office Visit Dermatology at [address] [phone] Mark Ballesteros MD [address] [place] [address], [place] [address] 06/09/2024 3:15 PM EDT Office Visit Dermatology at [address] [phone] Mark Ballesteros MD [address] [place] [address] 03/01/2025 11:00 AM EDT Office Visit Cardiology at [address] [phone] Leif Paniagua MD [facility] [place] [address] documented as of this encounter Procedures Procedure Name Priority Date/Time Associated Diagnosis Comments MRI LUMBAR SPINE WITHOUT CONTRAST Routine 03/25/2019 3:00 PM EDT Spinal stenosis of lumbar region, unspecified whether neurogenic claudication present documented in this encounter Results * MRI Lumbar Spine wo Contrast (Generic) (03/25/2019 3:00 PM EDT) Anatomical Region Laterality Modality L-spine Magnetic Resonan ce Impressions 03/25/2019 4:47 PM EDT Lumbar spondylosis described in detail above. Notably, severe central canal stenosis at L3-4 and L4-5. No significant change since prior. Comment: The Following Findings Are So Common In People Without Low Back Pain That While We Report Their Presence, They Must Be Interpreted With Caution And In Context Of The Clinical Situation (Reference- Margievik Et Al, Spine 2001). Findings: (Prevalence In Patients Without Low Back Pain), Disc Degeneration (Decreased T2 Signal, Height Loss, Bulge) (91%), Disc T2-Signal Loss (83%), Disc Height Loss (56%), Disc Bulge (64%), Disc Protrusion (32%), Annular Fissure (38%). Thank you for letting us participate in the care of this patient. For questions regarding this report, please contact the number below. ? Narrative 03/25/2019 4:47 PM EDT EXAMINATION: MRI LUMBAR SPINE WO CONTRAST (GENERIC) CLINICAL HISTORY: spinal stenosis order in scanned docs TECHNIQUE: MRI of the lumbar spine performed without intravenous contrast administration. COMPARISON: 06/02/2017 FINDINGS: Rightward convex curvature of the lumbar spine with compensatory leftward convex curvature lumbosacral junction. Mild retrolisthesis of T12 with respect to L1, L1 with respect to L2, L2 with respect to L3, L3 with respect L4 on a degenerative basis. Mild anterolisthesis of L4 with respect L5 and L5 with respect to S1 on the degenerative basis. Alignment is similar to prior exam. The conus is normal in signal and terminates at L1. T12-L1: Disc bulge with superimposed central disc extrusion contributing to mild central canal stenosis, unchanged. L1-2: Disc bulge and facet arthropathy contributing to moderate central canal stenosis and moderate right foraminal stenosis. No significant change. L2-3: Disc bulge and left greater than right facet arthropathy contributing to moderate central canal stenosis. Mild left greater than right neural foraminal stenosis. No significant change. L3-4: Disc bulge, marginal endplate proliferation, and pronounced facet arthropathy contributes to severe central canal stenosis. Severe left and moderate foraminal stenosis. No significant change. L4-5: Disc bulge, pronounced facet arthropathy, redundancy ligamentum flavum contributes to severe central canal stenosis and severe left and moderate to severe right foraminal stenosis. No significant change. L5-S1: Disc bulge and facet arthropathy contributes to moderate central canal and severe left subarticular recess stenosis. Moderate bilateral neural foraminal stenosis. No significant change. Procedure Note Radha Acosta MD - 03/25/2019 EXAMINATION: MRI LUMBAR SPINE WO CONTRAST (GENERIC) CLINICAL HISTORY: spinal stenosis order in scanned docs TECHNIQUE: MRI of the lumbar spine performed without intravenous contrastadministration. COMPARISON: 06/02/2017 FINDINGS: Rightward convex curvature of the lumbar spine with compensatory leftwardconvex curvature lumbosacral junction. Mild retrolisthesis of T12 with respect toL1, L1 with respect to L2, L2 with respect to L3, L3 with respect L4 on a degenerative basis. Mild anterolisthesis of L4 with respect L5 and L5with respect to S1 on the degenerative basis. Alignment is similar to priorexam. The conus is normal in signal and terminates at L1. T12-L1: Disc bulge with superimposed central disc extrusion contributingto mild central canal stenosis, unchanged. L1-2: Disc bulge and facet arthropathy contributing to moderate centralcanal stenosis and moderate right foraminal stenosis. No significant change. L2-3: Disc bulge and left greater than right facet arthropathycontributing to moderate central canal stenosis. Mild left greater than right neuralforaminal stenosis. No significant change. L3-4: Disc bulge, marginal endplate proliferation, and pronounced facet arthropathy contributes to severe central canal stenosis. Severe leftand moderate foraminal stenosis. No significant change. L4-5: Disc bulge, pronounced facet arthropathy, redundancy ligamentumflavum contributes to severe central canal stenosis and severe left and moderateto severe right foraminal stenosis. No significant change. L5-S1: Disc bulge and facet arthropathy contributes to moderate centralcanal and severe left subarticular recess stenosis. Moderate bilateral neural foraminal stenosis. No significant change. IMPRESSION Lumbar spondylosis described in detail above. Notably, severe centralcanal stenosis at L3-4 and L4-5. No significant change since prior. Comment: The Following Findings Are So Common In People Without Low BackPain That While We Report Their Presence, They Must Be Interpreted With CautionAnd In Context Of The Clinical Situation (Reference- Jarvik Et Al, [id number]). Findings: (Prevalence In Patients Without Low Back Pain), DiscDegeneration (Decreased T2 Signal, Height Loss, Bulge) (91%), Disc T2-Signal Loss(83%), Disc Height Loss (56%), Disc Bulge (64%), Disc Protrusion (32%), AnnularFissure (38%). Thank you for letting us participate in the care of this patient. Forquestions regarding this report, please contact the number below. Allison Emanuel MD IMG MRI ORDERABLES documented in this encounter Visit Diagnoses Diagnosis Spinal stenosis of lumbar region, unspecified whether neurogenic claudication present documented in this encounter Care Teams Rnp Relationship Specialty Start Date End Date Allison Emanuel MD [address] [place] [address] [address] PCP - General Internal Medicine 06/02/17 03/01/20 documented as of this encounter
[2024-04-09 11:49] LABS: Campylobacter PCR Negative (Negative); Salmonella PCR Negative (Negative); Shiga Toxin PCR Negative (Negative); Shigella/Enteroinvasive Ecoli Negative (Negative)
[2024-04-13 16:59] LABS: Calprotectin 193 mcg/g
== END 2024-04-08 14:38 | disposition home or self-care (01) ==
LOC: LBN 14:37
PROVIDERS: PCP Nurse Practitioner Family; Visit Provider Nurse Practitioner Family
DX: R19.7 Diarrhea, unspecified (principal)
CPT/HCPCS: 87329; 87493; 87505; 83993; 87177

== ENCOUNTER 2025-05-24 13:55 | Emergency (ER) | payer MEDICARE, OTHER, SELFPAY ==
[2025-05-24] VITALS (23 sets, daily range): BP systolic 95–161; BP diastolic 57–101; PULSE 62–105; RESP 13–23; O2SAT 93–97
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
[2025-05-24 14:25] LABS: Abs Immature Grans 0.02 10^3/uL (0.0-0.06); HCT 42.7 % (40.0-50.0); HGB 14.6 g/dL (13.5-17.5); Immature Grans % 0.2 %; MCH 31.5 pg (27.0-33.0); MCHC 34.2 % (32.0-36.0); MCV 92 fL (80-95); MPV 9.6 fL (8.0-11.0); Platelet Count 179 10^3/uL (130-400); RBC 4.63 10^6/uL (4.36-5.78); RDW 11.7 % (11.8-14.1); RDW-SD 39.1 fL; WBC 8.18 10^3/uL (4.4-10.8)
[2025-05-24] MEDS: ACETAMINOPHEN 1,000 MG/100 ML BAG 400 MG IVPB (14:40)
[2025-05-24 14:55] LABS: ALT 19 U/L (16-63); AST 25 U/L (15-37); Albumin 3.6 g/dL (3.4-5.0); Alkaline Phosphatase 71 U/L (46-116); Anion Gap 11.5 mmol/L (3-11); BUN 24 mg/dL (7-18); Bilirubin, Total 0.6 mg/dL (0.2-1.0); CO2 25.5 mmol/L (21.0-32.0); Calcium 9.0 mg/dL (8.5-10.1); Chloride 105 mmol/L (98-107); Estimated GFR 54.85 (mL/min/1.73m2); Glucose 169 mg/dL (74-106); Potassium 3.6 mmol/L (3.5-5.1); Sodium 142 mmol/L (136-145); Total Protein 7.1 g/dL (6.4-8.2)
[2025-05-24 15:00] LABS: Troponin I 1359 ng/L (<or=76)
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
[2025-05-24] MEDS: Normal Saline Flush 10 ML SYR IVP (15:30)
[2025-05-24] MEDS: Normal Saline - Diluent 50 ML VIAL IJ (15:30)
[2025-05-24] MEDS: Omnipaque 350 MG/ML 100 ML BTL IJ (15:30)
--- NOTE | 2025-05-24 15:31 | DI.CT_ITS ---
Exam(s) CT CHEST/ABD/PEL W EXAM: CT CHEST/ABD/PEL W CLINICAL HISTORY: trauma. TECHNIQUE: Imaging Protocol: Axial computed tomography images with coronal and sagittal reformatted images were created and reviewed CONTRAST MATERIAL: Intravenous: Omnipaque 350 Contrast volume:75 Oral: None COMPARISON: No exams were available for comparison FINDINGS: CHEST: LUNGS: No evidence of infiltrate or lung contusion or pleural effusion or pneumothorax. No pulmonary edema. Scarring in the posterior basal segment segments of both lower lobes. MEDIASTINUM: Sternotomy wires. There is no evidence of acute sternal fracture nor mediastinal hematoma. Partially visualized thyroid unremarkable. No hilar nor mediastinal adenopathy. CARDIAC: Sternotomy wires. Aortic valve TAVR. Also clip device in left side of the heart and coronary artery calcification.Caliber of the ascending thoracic aorta is upper normal and there is no evidence of dissection. OSSEOUS: No sternal more rib fractures. No thoracic vertebral fractures nor listhesis. ABDOMEN: There is no ascites and there is no evidence of mesenteric nor bowel wall hematoma. LIVER: Intact. No lacerations. No subcapsular hematomas. No lesions. GALLBLADDER/BILIARY: No obvious acute gallbladder pathology. CBD is not dilated. PANCREAS: No evidence of pancreatic mass nor dilatation of the pancreatic duct. SPLEEN: Intact. Normal size. No laceration. No lesions. Splenic and portal veins are patent. ADRENALS: No adrenal masses nor adrenal hemorrhage. KIDNEYS: Left kidney appears moderately atrophic. It contains benign cysts measuring up to 2 cm. These do not require further workup. There are no solid renal masses. No calculi. No hydronephrosis. Similar benign cysts measuring up to 2 cm also seen in the opposite-right kidney. No other renal findings. No hydronephrosis. ABDOMINAL AORTA: Calcified but not enlarged. Iliac arteries also calcified but not enlarged. LYMPH NODES: There is no retroperitoneal nor paraaortic adenopathy. ABDOMINAL WALL: No evidence of significant anterior abdominal wall nor inguinal hernia. No anterior abdominal wall hematoma. GI: There is no evidence of bowel obstruction. PELVIS: LYMPH NODES: There is no intrapelvic nor inguinal adenopathy. GI: No evidence of appendicitis.There is extensive diverticulosis of the sigmoid but no evidence of acute diverticulitis. URINARY BLADDER: Mild uniform thickening of the urinary bladder wall. No intraluminal calculi nor obvious focal masses. REPRODUCTIVE: There are multiple radiation seeds in the prostate gland. OSSEOUS: No fractures. No lytic nor blastic lesions identified. Multilevel chronic degenerative disc disease. No fractures. OTHER: There is an area of hypodensity in the muscular tear anterior to the right hip, specifically within the right iliopsoas. Either related to tenosynovitis or possibly other acute or nonacute pathology. There is no subjacent hip fracture. IMPRESSION: 1. No acute trauma findings in the chest, abdomen, and pelvis 2. Abnormal hypodensity in the right ileo psoas muscle anterior to the right hip of questionable significance. May be incidental ileo psoas bursitis/tenosynovitis. In addition, there is significant osteoarthritic degenerative change in the right hip joint. There is possibly that this is a hip joint effusion invaginating into the muscle. 3. Other findings as above RADIATION DOSE DELIVERED: 558.98mGy.cm Total DLP DATA REPOSITORY: All CT scans at this facility are submitted to the National Radiology Data Registry (NRDR) Dose Index Registry (DIR) with the [employer] (ACR). RADIATION OPTIMIZATION: All CT scans at this facility use at least one of these dose optimization techniques: automated exposure control; mA and/or kV adjustment per patient size (includes targeted exams where dose is matched to clinical indication); or iterative reconstruction.
--- NOTE | 2025-05-24 15:32 | DI.CT_ITS ---
Exam(s) CT HEAD CERVICAL SPINE WO EXAM: CT HEAD CERVICAL SPINE WO CLINICAL HISTORY: trauma. TECHNIQUE: Imaging Protocol: Axial computed tomography images with coronal and sagittal reformatted images were created and reviewed COMPARISON: No exams were available for comparison FINDINGS: BRAIN: There are no skull fractures nor fluid in the visualized paranasal sinuses. There is no evidence of intracranial hemorrhage, mass effect, or shift of midline structures. There are no extra-axial fluid collections. The ventricles are not enlarged or shifted and there is no blood within the ventricular system nor within the basal cisterns. CERVICAL SPINE: There is no evidence of fracture nor listhesis. No significant prevertebral soft tissue swelling. There is multilevel chronic degenerative disc disease with narrowing of each level with the exception of C 4-5 which maintains normal disc height. C5-6 and C6-7 levels exhibit the most significant chronic disc space narrowing and there also bilateral Luschka joint osteophytes at these 2 levels. Multilevel facet arthropathy noted including facet joint fusion at the C3-4 level. However, there is no significant facet joint malalignment. No significant osseous lesions evident. IMPRESSION: No acute intracranial findings on this noninfused CT scan of the brain. No evidence of acute cervical spine fracture, malalignment, nor acute compromise of the cervical spinal canal. Multilevel chronic degenerate disc disease and facet joint arthropathy. Report called by myself to ER on 05/24/2025 at 3:30 p.m. RADIATION DOSE DELIVERED: 1,319.85mGy.cm Total DLP DATA REPOSITORY: All CT scans at this facility are submitted to the National Radiology Data Registry (NRDR) Dose Index Registry (DIR) with the [employer] (ACR). RADIATION OPTIMIZATION: All CT scans at this facility use at least one of these dose optimization techniques: automated exposure control; mA and/or kV adjustment per patient size (includes targeted exams where dose is matched to clinical indication); or iterative reconstruction.
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
[2025-05-24 16:29] LABS: Troponin I 1994 ng/L (<or=76)
--- NOTE | 2025-05-24 16:50 | NUR.NOTE ---
Nursing Note: wounds cleansed and dressed with xeroform and nonstick gauze. PT tolerated well
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
--- NOTE | 2025-05-24 17:30 | RT.EKG_ITS ---
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
--- NOTE | 2025-05-24 17:31 | DI.CT_ITS ---
Exam(s) CT THORACIC LUMBAR SPINE REC EXAM: CT THORACIC LUMBAR SPINE REC CLINICAL HISTORY: Trauma, requested by [facility] TECHNIQUE: COMPARISON: No exams were available for comparison FINDINGS: THORACIC SPINAL COLUMN: No evidence of fracture or listhesis. No osseous lesions. No facet malalignment. There are multilevel small disc protrusions. Severe central canal stenosis. LUMBOSACRAL SPINAL COLUMN:: No evidence of acute fracture of the lumbar vertebral bodies. There is multilevel advanced chronic disc space narrowing and facet arthropathy. There is mild degenerative anterolisthesis of L4 upon L5. Multilevel moderate spinal canal stenosis and there is severe spinal canal stenosis at L4-5 level due to broad annular bulging, short AP dimensions the pedicles and facet arthropathy compound by mild anterolisthesis L4 upon L5. There is also bilateral foraminal stenosis at this level. Similar degenerative anterolisthesis L5 upon S1 noted with central spinal canal stenosis and bilateral foraminal stenosis at this level also evident. However, there also appear to be pars defects at the L5 level in addition to advanced facet arthropathy. IMPRESSION: Multilevel degenerative changes as described above. No acute fractures in the thoracic and lumbosacral spinal columns. Multilevel spinal canal stenosis in the lumbar spine noted.
[2025-05-24 18:02] LABS: Troponin I 2785 ng/L (<or=76)
--- NOTE | 2025-05-24 22:49 | NUR.NOTE ---
Nursing Note: This RN and PT had pleasant conversation. Medically Uneventful transport to [facility] ED see Transfer documentation for VS.
== END 2025-05-24 20:12 | disposition short-term general hospital (02) ==
PROVIDERS: General Practice; Emergency Provider Emergency Medicine; PCP Nurse Practitioner Family
DX: R07.9 Chest pain, unspecified (principal); I10 Essential (primary) hypertension; S70.11XA Contusion of right thigh, initial encounter; S80.11XA Contusion of right lower leg, initial encounter; S80.12XA Contusion of left lower leg, initial encounter; S60.011A Contusion of right thumb without damage to nail, initial encounter; Z86.79 Personal history of other diseases of the circulatory system; R79.89 Other specified abnormal findings of blood chemistry; V49.49XA Driver injured in collision with other motor vehicles in traffic accident, initial encounter
CPT/HCPCS: 00123; 36415; 74177; 80053; 93005; 96374; 99285; 70450; 71260; 72125; 73130; 83605; 84484; 85025; 93010; J0131; J3490